=== PATIENT | female | born 1955 | race Caucasian/White ===

== ENCOUNTER 2018-09-23 09:33 | Outpatient (CLI) | payer BC ==
--- NOTE | 2018-09-23 10:36 | MRI ---
CERVICAL SPINE MRI WITHOUT CONTRAST: 09/23/2018 COMPARISON: None HISTORY: Cervical radiculopathy, neck pain with right upper extremity radiculopathy TECHNIQUE: Multiplanar multisequence MR imaging of cervical spine provided without contrast FINDINGS: The sagittal STIR imaging demonstrates a mild degree of right lateral degenerative edematous endplate change at C5-6. There is no significant anterolisthesis or retrolisthesis noted. There is moderate degenerative lowery e at the atlantoaxial interspace with posterior degenerative pannus formation. C2-3: Mild left-sided facet and uncovertebral osteophyte formation with no significant central canal or neural foraminal stenosis C3-4: There is a small left paracentral disc protrusion. There is facet and uncovertebral osteophyte formation on the left with mild left neural foraminal stenosis. No significant central canal or right neural foraminal stenosis. C4-5: There is disc space narrowing and disc desiccation with mild disc bulge partially effacing the ventral thecal sac and causing a mild degree of central canal stenosis, primarily right-sided. Bilate ral facet and uncovertebral osteophyte formation, right greater than left. Moderate right and mild le ft neural foraminal stenosis. C5-6: There is disc space narrowing and disc desiccation with anterior osteophyte formation and disc bulge. Superimposed central/right paracentral disc protrusion noted with effacement of the ventral th ecal sac and a moderate right lateral osteophyte formation. There is associated moderate right-sided neural foraminal stenosis on the basis of disc bulge as well as osteophyte encroachment. Mild left ne ural foraminal stenosis. C6-7: There is disc space narrowing and disc desiccation with disc bulge partially effacing the ventr al thecal sac and causing mild central canal stenosis. Moderate/severe right-sided neural foraminal s tenosis on the basis of facet and uncovertebral osteophyte formation. Mild left neural foraminal sten osis. C7-T1: Disc space narrowing and disc desiccation noted. There is a small central disc herniation with mild superior migration and mild central canal stenosis. There is bilateral facet and uncovertebral osteophyte formation, right greater than left. Moderate to severe right neural foraminal stenosis. Mi ld left neural foraminal stenosis. The cervical cord demonstrates normal signal intensity. IMPRESSION: Multilevel cervical spine degenerative change as detailed above. Transcribed Date/Time: 09/23/2018 10:43 AM
== END 2018-09-23 09:34 | disposition home or self-care (01) ==
LOC: BICMRI 09:33
PROVIDERS: ATTEND Family Medicine
DX: M47.22 Other spondylosis with radiculopathy, cervical region (principal)
CPT/HCPCS: 72141

== ENCOUNTER 2018-12-24 22:07 | Inpatient (IN) | payer BC ==
[~2018-12-24 22:07] MED LIST: ISOVUE-370 76%-LOCM 1 ML ONE
[2018-12-24 22:50] LABS: Bilirubin Negative (Negative); Blood, Urine Negative (Negative); Clarity Clear (Clear); Glucose, Urine (Dipstick) Normal (Negative); Leukocyte Negative Leu/uL (Negative); Nitrite Negative (Negative); Protein, Urine (Dipstick) 10 mg/dL (Neg-Trace); Urobilinogen Normal mg/dL (Less than 2)
[2018-12-24 22:59] LABS: #Eosinphils 0.1 thou/uL (0.0-0.7); #Lymphocytes 1.8 thou/uL (1.20-3.40); #Monocytes 0.7 thou/uL (0.11-0.59); #Neutrophils 4.3 thou/uL (1.40-6.50); %Basophils 0.6 % (0.0-1.0); %Eosinophils 1.3 % (0.0-10.0); %Lymphocytes 26.2 % (21.0-51.0); %Monocytes 10.5 % (0.0-10.0); %Neutrophils 61.4 % (42.0-75.0); Hemoglobin 13.7 g/dL (12.0-16.0); Mean Corpuscular Hemoglobin 31.3 pg (27.0-31.0); Mean Platelet Volume 9.6 fL (7.4-10.4); Platelet Count 213 thou/uL (130-400); RBC Distribution Width 11.8 % (11.5-14.5); Red Blood Cell (RBC) Count 4.39 mill/uL (4.20-5.40)
[2018-12-24 23:17] LABS: ALT (SGPT) 20 U/L (8-55); AST (SGOT) 23 U/L (5-34); Albumin 4.7 g/dL (3.4-4.8); Alkaline Phosphatase 61 U/L (40-150); Anion Gap 15 mmol/L (10-20); BUN (Urea Nitrogen) 20 mg/dL (9.8-20.1); Bilirubin, Total 0.5 mg/dL (0.2-1.2); Calc. Creatinine Clearance 0 mL/min (70-130); Calcium 9.8 mg/dL (7.8-10.44); Carbon Dioxide 23 mmol/L (23-31); Chloride 99 mmol/L (98-107); Estimated GFR-MDRD 79; Globulin 3.1 g/dL (2.4-3.5); Glucose 106 mg/dL (80-115); Lipase 24 U/L (8-78); Potassium 3.3 mmol/L (3.5-5.1); Protein, Total 7.8 g/dL (6.0-8.3); Sodium 134 mmol/L (136-145)
[2018-12-24] MEDS ORDERED: Dicyclomine 20 MG TAB ONE (23:55)
[2018-12-25] MEDS ORDERED: Morphine 4 MG/ML VIAL ONE (00:42)
[2018-12-25] MEDS ORDERED: Lidocaine Viscous Sol 2% 15 ml UD Cup ONE (00:52)
[2018-12-25] MEDS ORDERED: Benzocaine 20% Spray 60 ML CAN ONE (00:52)
[2018-12-25] MEDS ORDERED: Morphine 4 MG/ML VIAL SLOW IVP PRN ×2 (02:13→03:23)
[2018-12-25] MEDS ORDERED: Acetaminophen 325 MG TAB PO PRN (02:14)
[2018-12-25] MEDS ORDERED: Sodium Chloride 0.9% 1,000 ML IV SCH (02:14)
[2018-12-25 02:42] VITALS: BMI 25.5
[2018-12-25] MEDS: Potassium Chloride 30 MEQ in Sodium Chloride 0.9% 1,000 ML IV SCH ×2 (03:37→14:10)
--- NOTE | 2018-12-25 08:07 | CT ---
CT ABDOMEN AND PELVIS WITH CONTRAST: Date: 12/24/18 INDICATION: Abdominal pain and bloating. No prior comparison. FINDINGS: There is significant fecal impaction of the colon. In addition, there is a torsed appearance of the d istal colon at the level of the sigmoid with associated marked air-filled distention of the colon, wi th colonic luminal diameter nearing 10 cm. Associated fluid level within the colonic lumen is seen. No acute abnormality of the solid abdominal organs. There is dependent atelectasis in the lung base. No free air is seen. There is faint dependent fluid density seen within the posterior aspect of the p glen. Abdominal aorta is normal in appearance for patient's age. Osseous structures are nonacute. IMPRESSION: Findings consistent with a sigmoid volvulus with associated marked colonic distention. There is signi ficant fecal burden of the colon, as well. Recommend urgent surgical consultation. Telephone call to ER physician, Sandeep Simental, placed at 0022 hours on 12/25/18. CODE CR.
[2018-12-25] MEDS ORDERED: Ondansetron HCl/PF 4 MG/2 ML Vial IVP PRN (08:58)
[2018-12-25] MEDS ORDERED: Promethazine HCl 25 MG/ML VIAL IM PRN (08:58)
--- NOTE | 2018-12-25 10:28 | RAD ---
KUB: Date: 12/25/18 INDICATION: NG tube placement. IMPRESSION: NG tube tip projects in the region of the gastric body. There is excreted contrast within the renal c ollecting system. There are gas-filled loops of small and large bowel within the upper abdomen, which is nonspecific. POS: BH
--- NOTE | 2018-12-25 10:35 | CON ---
DATE OF CONSULTATION: 12/25/2018 REQUESTING PHYSICIAN: Dr. Llanes. REASON FOR CONSULTATION: Sigmoid volvulus. HISTORY OF PRESENT ILLNESS: Tamika Garcia is a 63-year-old woman with no significant past gastrointestinal history. She has never undergone colonoscopy. She has had a hysterectomy and several prior laparoscopies for endometriosis. She is otherwise fairly healthy. She says for the past 5 days or so, she has had increasing abdominal bloating, discomfort, and associated pain. The bowel habits have been alternating between periods of constipation and then watery diarrhea. There has been no fever. Some mild nausea, but no vomiting. The pain and bloating symptoms escalated last night, so she presented to the emergency department. A CT of the abdomen and pelvis demonstrated sigmoid volvulus with dilation of segments of the colon up to 10 cm and no evidence of ischemia. The patient received morphine and also nasogastric tube placement for decompression. With this, she is feeling quite a bit better this morning. She has not been passing gas overnight. General Surgery was already consulted and advised GI consultation for consideration of flexible sigmoidoscopy for detorsion and decompression. The patient has remained hemodynamically stable and afebrile. She has no other complaints. REVIEW OF SYSTEMS: Full review of systems including constitutional, head, eyes, ears, nose, throat, GI, , cardiovascular, respiratory, musculoskeletal, neurologic systems are negative except as noted in the HPI. PAST MEDICAL HISTORY: Hypertension, hyperlipidemia, endometriosis, and hysterectomy. ALLERGIES: NO KNOWN DRUG ALLERGIES. OUTPATIENT MEDICATIONS: 1. Metoprolol. 2. Hydrochlorothiazide. 3. Atorvastatin. 4. . SOCIAL HISTORY: No smoking or drug use. No alcohol abuse. FAMILY HISTORY: Noncontributory. PHYSICAL EXAMINATION: VITAL SIGNS: Temperature 97.9, pulse 69, blood pressure 150/65, and 98% oxygen saturation on room air. GENERAL: A 63-year-old woman, lying in bed comfortably, in no distress. SKIN: No jaundice. No rashes were palpable. HEENT: Eyes, no scleral icterus. Extraocular movements intact. ENT, mucous membranes moist. No oral lesions. She has a nasogastric tube to the right naris, which is clamped at this time. LYMPH: No submandibular or supraclavicular lymphadenopathy. THYROID: Nontender to palpation. HEART: Regular rate and rhythm. LUNGS: Clear to auscultation bilaterally. ABDOMEN: Mild distention. Tympanitic to percussion. Bowel sounds are hypoactive. Some mild tenderness to palpation in the lower abdomen, but no guarding or rebound tenderness. EXTREMITIES: No peripheral edema. VESSELS: Radial pulses 2+ bilaterally. NEUROLOGIC: Cranial nerves 2 through 12 intact bilaterally. No focal deficits. LABORATORY STUDIES: WBC 7.0, hemoglobin 13.7, platelets 213. Sodium 134, potassium 3.3, BUN 20, creatinine 0.75. Lactic acid 0.6, total bilirubin 0.5, alkaline phosphatase 61, AST 23, ALT 20, and albumin 4.7. Urinalysis negative. IMAGING STUDIES: CT of the abdomen and pelvis demonstrates sigmoid volvulus with dilation of segments of the colon measuring up to 10 cm in diameter. There is no evidence of ischemic changes. ASSESSMENT AND PLAN: Sigmoid volvulus. I discussed with the patient the necessity to proceed with unprepped flexible sigmoidoscopy this morning for endoscopic decompression and detorsion. The patient is agreeable, so we will proceed within the next few hours. I understand general surgery has also been consulted. Sigmoidectomy should be considered at some point. Notably, the patient is clinically stable and has no clinical evidence that would raise suspicion for bowel ischemia. Job ID: [id number]
--- NOTE | 2018-12-25 10:37 | OP ---
DATE OF PROCEDURE: 12/25/2018 ASSISTANCE SURGEON: None. PROCEDURE PERFORMED: Flexible sigmoidoscopy, unprepped. INDICATION: Sigmoid volvulus. MEDICATIONS: See Anesthesia record. FINDINGS: After discussion of the risks, benefits, and alternatives of the procedure, informed consent was obtained and witnessed. Pre-endoscopic cardiopulmonary examination was satisfactory. Time-out was performed before sedation was achieved. Sedation was achieved with Anesthesia assistance in the endoscopy unit. The patient was placed in the left lateral decubitus position. Digital rectal exam was performed, which was unremarkable. The Pentax adult colonoscope was inserted into the anus and passed forward in the usual fashion. There was no stool evident within the rectum and rectosigmoid area. At 25 cm, which is in the sigmoid colon, there is characteristic swirling of the mucosa consistent with sigmoid volvulus. The endoscope was gently advanced to the apex of the swirling and easily passed beyond this area. The proximal sigmoid colon was distended, though less markedly so than expected. There was liquid stool proximal to this area. Care was taken to keep insufflation to a minimum and in fact, suck air out of the colonic lumen as much as possible. The endoscope was further advanced to a distance of about 80 cm. The mucosa was progressively more obscured with liquid and then solid stool. The mucosa was visualized, appeared unremarkable throughout. Certainly, no evidence of ischemia or gangrene. No erythema. The endoscope was withdrawn, slowly and gradually suctioning out all excess air possible. Retroflexion in the rectum was unremarkable. The colonoscope was completely withdrawn and the patient allowed to recover. The patient tolerated the procedure well. There were no immediate postprocedure complications. IMPRESSION: 1. Sigmoid volvulus with characteristic mucosal swirling at 25 cm, now with successful endoscopic decompression and hopefully successful detorsion. 2. Mild colonic dilation with solid and liquid stool proximal to 25 cm, now decompressed. 3. Normal mucosa was visualized, examined to 80 cm. RECOMMENDATIONS: Proceed with surgical evaluation for consideration of sigmoidectomy. Please call back anytime with questions or concerns. Job ID: [id number]
[2018-12-25] MEDS ORDERED: PROPOFOL 200 MG/20 ML VIAL ONE (15:00)
--- NOTE | 2018-12-25 16:25 | HP ---
HISTORY OF PRESENT ILLNESS: This is a 63-year-old white female, relatively healthy with a history of hypertension who presents with abdominal pain. The patient is very active. She walks 2-3 miles daily. She was doing well until earlier this week, Thursday, Thursday, began developing some abdominal discomfort. She had minimal nausea. She was relatively stable until Thursday evening. She had a larger than normal meal with some friends. Her abdomen became more acutely swollen with pain. She presented to the emergency room, where CAT scan revealed a sigmoid volvulus. Dr. Chapa and Dr. Pozo were consulted. This morning, actually she went to the OR and underwent a flexible sigmoidoscopy with reduction of the volvulus. Dr. Pozo was consulted. This morning, patient is also feeling significantly better with no abdominal pain. NG tube is in place. PAST MEDICAL HISTORY: Includes hypertension. PAST SURGERIES: Hysterectomy. MEDICATIONS: 1. Multivitamin daily. 2. Aspirin 81 daily. 3. Calcium 500 b.i.d. 4. Estradiol patch weekly transdermal 0.025. 5. HCTZ 25 daily. 6. Phentermine daily. 7. Metoprolol 50 b.i.d. FAMILY HISTORY: Father with heart disease. Mother with heart disease. Brother with hypertension. ALLERGIES: NONE. SOCIAL HISTORY: She is a nonsmoker. No alcohol. and retired. They have one child. REVIEW OF SYSTEMS: As above. PHYSICAL EXAMINATION: VITAL SIGNS: Temperature 97.6, pulse 61, respiration 14, blood pressure 134/84. GENERAL: No acute distress at this time with NG tube in place. HEENT: Clear. HEART: Regular rate and rhythm. LUNGS: Clear. ABDOMEN: Soft, nontender. No bloating. EXTREMITIES: No edema. LABORATORY DATA: White count 10.0, H and H 13 and 41 on admission. Sodium 134, potassium 3.3. Lipase 24. UA negative. Specific gravity 1.031. ASSESSMENT: 1. Sigmoid volvulus. 2. Hypertension. 3. Postop day #0 status post flex sig with sigmoid volvulus reduction. PLAN: 1. Consult Dr. Pozo for discussion on sigmoidectomy. The patient is at risk for recurrence and intestinal ischemia. The patient and her are aware of this. 2. To have a discussion with Dr. Pozo as to the next step. 3. Hydration. 4. Potassium replenishment. 5. We will continue to follow. We will restart antihypertensive when necessary. Job ID: [id number]
[2018-12-25] MEDS ORDERED: GoLYTELY 4,000 ml Bottle PO SCH (17:00)
[2018-12-25] MEDS: Sodium Chloride 0.9% 1,000 ML IV SCH (21:18)
[2018-12-26] MEDS: Sodium Chloride 0.9% 1,000 ML IV SCH ×2 (07:44→13:43)
[2018-12-26 08:03] LABS: #Eosinphils 0.1 thou/uL (0.0-0.7); #Lymphocytes 1.3 thou/uL (1.20-3.40); #Monocytes 0.7 thou/uL (0.11-0.59); #Neutrophils 3.4 thou/uL (1.40-6.50); %Basophils 0.6 % (0.0-1.0); %Lymphocytes 23.6 % (21.0-51.0); %Monocytes 12.7 % (0.0-10.0); %Neutrophils 62.2 % (42.0-75.0); Hemoglobin 12.6 g/dL (12.0-16.0); Mean Corpuscular HGB CONC 35.3 g/dL (32.0-36.0); Mean Corpuscular Hemoglobin 33.5 pg (27.0-31.0); Mean Corpuscular Volume 94.9 fL (78.0-98.0); Mean Platelet Volume 9.2 fL (7.4-10.4); Platelet Count 219 thou/uL (130-400); RBC Distribution Width 12.2 % (11.5-14.5); Red Blood Cell (RBC) Count 3.74 mill/uL (4.20-5.40); White Blood Cell (WBC) Count 5.5 thou/uL (4.8-10.8)
--- NOTE | 2018-12-26 08:14 | PRG ---
DATE OF SERVICE: 12/26/2018 SUBJECTIVE: The patient is doing well this morning. No complaints of any abdominal pain. Drank the bowel prep for colonoscopy this morning, however, she is not entirely cleared yet. Status post 1 day of sigmoid decompression via flexible sigmoidoscopy. OBJECTIVE: VITAL SIGNS: Temperature 98.3, pulse 94, respirations 18, pulse ox 91%, and blood pressure 129/80. HEART: Regular rate and rhythm. LUNGS: Clear. ABDOMEN: Soft and nontender. ASSESSMENT: 1. Postop day 1, status post sigmoid decompression of a volvulus. 2. Hypertension. PLAN: 1. Colonoscopy this a.m. May require additional bowel prep. 2. Plan for sigmoidectomy in the a.m. by Dr. Pozo. 3. We will recheck electrolytes this morning. Job ID: [id number]
[2018-12-26 08:25] LABS: Anion Gap 14 mmol/L (10-20); BUN (Urea Nitrogen) 5 mg/dL (9.8-20.1); Calc. Creatinine Clearance 101 mL/min (70-130); Calcium 8.2 mg/dL (7.8-10.44); Carbon Dioxide 26 mmol/L (23-31); Chloride 102 mmol/L (98-107); Estimated GFR-MDRD Greater than 90; Glucose 81 mg/dL (80-115); Potassium 3.1 mmol/L (3.5-5.1); Sodium 139 mmol/L (136-145)
--- NOTE | 2018-12-26 08:39 | CON ---
DATE OF CONSULTATION: 12/25/2018 REASON FOR CONSULT: Sigmoid volvulus. HISTORY OF PRESENT ILLNESS: Ms. Garcia is a 63-year-old woman, who came to the hospital with a 4-day history of abdominal discomfort, which became severe on the day of admission and she was not having any nausea or vomiting, but did have diffuse abdominal discomfort and distention. Evaluation in the ER revealed sigmoid volvulus, and she was taken to the endoscopy suite on 12/25/2018 and underwent flexible sigmoidoscopy by Dr. Chapa with reduction of the volvulus. She is feeling much better since her decompression and is passing gas. PAST MEDICAL HISTORY: Hypertension. PAST SURGICAL HISTORY: Total hysterectomy. MEDICATIONS: Include, 1. Hydrochlorothiazide. 2. Metoprolol. 3. She also has an Estradiol patch in place, and takes phentermine and also vitamin, aspirin, and calcium. FAMILY HISTORY: Heart disease and hypertension. ALLERGIES: NO KNOWN DRUG ALLERGIES. SOCIAL HISTORY: She does not smoke, drink, or use illicit drugs. REVIEW OF SYSTEMS: Ten-system review of systems is negative, except per HPI. Currently, she is completely asymptomatic. PHYSICAL EXAMINATION: GENERAL: Reveals a healthy-appearing woman, in no acute distress. HEENT: Unremarkable. NECK: Supple without lymphadenopathy or thyroid nodules. HEENT: She is not flushed or toxic. She is not jaundiced or icteric. HEART: Regular in its rate and rhythm without murmurs, rubs, or gallops. LUNGS: Clear to auscultation bilaterally. ABDOMEN: Soft, nontender, and nondistended without palpable scars or masses. EXTREMITIES: Warm and well perfused without edema. NEURO: No focal deficit. PSYCHIATRIC: Alert, oriented, and appropriate. LABORATORY DATA: White count is normal, hematocrit is 41. Electrolytes are unremarkable. Potassium is slightly low at 3.3. IMAGING STUDIES: CT images are reviewed and I agree with written report. She has an extremely redundant sigmoid colon. ASSESSMENT: Sigmoid volvulus with very redundant sigmoid colon. The patient is at high risk for recurrent volvulus, and I have recommended sigmoid colectomy. This should be able to be done in a laparoscopic hand-assisted manner. She has never had a screening colonoscopy, and I have recommended that she undergo this prior to sigmoid colectomy. Dr. Chapa was able to evaluate most of the sigmoid colon and no mucosal abnormalities were noted, but the proximal colon was unprepped. Bowel preparation and colonoscopy by Dr. Chapa are scheduled for Thursday and I would echo on the OR schedule for a laparoscopic hand-assisted sigmoid colectomy on Thursday. Inherent risks of sigmoid colectomy were discussed with the patient and her . These includes, but are not limited to, bleeding, infection, risks of anesthesia, damage to nearby structures including bowel, blood vessels, and ureter; need for other procedures, and anastomotic leak requiring diversion with an ostomy. They understands and accepts these risks and wished to proceed. She has an NG tube in place and this will be used for the bowel prep after which it can be removed. Job ID: [id number]
[2018-12-26] MEDS ORDERED: GoLYTELY 4,000 ml Bottle PO SCH (12:15)
[2018-12-26] MEDS ORDERED: Lidocaine 1% PF 5 ML VIAL ONE (15:06)
[2018-12-26] MEDS ORDERED: PROPOFOL 200 MG/20 ML VIAL ONE (15:06)
[2018-12-26] MEDS ORDERED: Midazolam HCl 2 mg/2 ml Vial ONE (15:34)
[2018-12-26] MEDS ORDERED: Promethazine HCl 25 MG/ML VIAL IM PRN (16:25)
[2018-12-26] MEDS ORDERED: Ondansetron HCl/PF 4 MG/2 ML Vial IVP PRN (16:25)
[2018-12-26] MEDS ORDERED: Promethazine HCl 25 MG/ML VIAL SLOW IVP PRN (16:25)
[2018-12-26] MEDS ORDERED: Metoprolol Tartrate 50 MG TAB PO SCH (18:45)
--- NOTE | 2018-12-26 23:09 | OP ---
DATE OF PROCEDURE: 12/26/2018 KAIAWHINA KURA KAUPAPA MAORI SURGEON: None. PROCEDURE PERFORMED: Colonoscopy, diagnostic indication, recent sigmoid volvulus, status post emergent flexible sigmoidoscopy with decompression. This is a preoperative examination prior to planned sigmoid resection. MEDICATIONS: See Anesthesia record. FINDINGS: After discussion of the risks, benefits, and alternatives of the procedure, informed consent was obtained and witnessed. Pre-endoscopic cardiopulmonary examination was satisfactory. Time-out was performed before sedation was achieved. Sedation was achieved with Anesthesia assistance in the endoscopy unit. A Pentax adult upper endoscope was prepared. Digital rectal exam was performed, which was unremarkable. The colonoscope was inserted into the anus and passed forward to the cecum in the usual fashion. The cecal base was identified by the appendiceal orifice as well as the ileocecal valve. The terminal ileum was intubated and the ileal mucosa appeared normal. The colonoscope was slowly withdrawn in a gradual and circumferential manner with careful examination of the entire colonic mucosa. The quality of the prep was good. The colon is quite redundant, which required manual pressure in order to advance the scope all the way to the cecum. The colonic mucosa appeared normal throughout. There was no evidence of any polyps or mass lesions or any other mucosal abnormalities. Retroflexion in the rectum was unremarkable. The colonoscope was completely withdrawn and the patient allowed to recover. The patient tolerated the procedure well. There were no immediate postprocedure complications. IMPRESSION: 1. Redundant colon. 2. Otherwise normal colonoscopy to the terminal ileum. RECOMMENDATION: 1. Proceed with plan for sigmoidectomy. 2. Repeat colonoscopy for screening in 10 years. 3. Please call back anytime, if GI can be of any further assistance. Job ID: [id number]
[2018-12-27] MEDS ORDERED: cefOXitin Sodium/Dextrose,Iso 2 GM in Premix Bag 1 BAG IVPB SCH (00:45)
[2018-12-27] MEDS: Neomycin 500 mg Tablet PO SCH ×3 (01:01→17:10)
[2018-12-27] MEDS: Erythromycin Base 250 MG TAB PO SCH ×4 (01:02→21:09)
[2018-12-27] MEDS: Sodium Chloride 0.9% 1,000 ML IV SCH ×2 (01:07→21:50)
[2018-12-27] MEDS ORDERED: Midazolam HCl 2 mg/2 ml Vial ONE ×3 (08:40→15:32)
[2018-12-27] MEDS ORDERED: Fentanyl 100 MCG/2 ML VIAL ONE ×4 (08:40→19:39)
[2018-12-27] MEDS ORDERED: Dexamethasone 4 mg/ml Vial ONE (08:40)
[2018-12-27] MEDS ORDERED: Fentanyl 250 MCG/5 ML VIAL ONE (10:15)
[2018-12-27] MEDS ORDERED: Bupivacaine/Epinephrine 0.25% 30 ML VIAL ONE (15:22)
[2018-12-27] MEDS ORDERED: Bupivacaine HCl 0.5%/Epinephrine 1:200,000/PF 30 ml Vial ONE (15:22)
[2018-12-27] MEDS ORDERED: Dexamethasone 20 MG/5 ML VIAL ONE (15:51)
[2018-12-27] MEDS ORDERED: Lidocaine 1% PF 5 ML VIAL ONE (15:51)
[2018-12-27] MEDS ORDERED: PROPOFOL 200 MG/20 ML VIAL ONE (15:51)
[2018-12-27] MEDS ORDERED: Ketorolac Tromethamine 30 MG/ML VIAL ONE (15:51)
[2018-12-27] MEDS ORDERED: Glycopyrrolate 0.2 MG/ML 5 ML SYRINGE ONE (15:51)
[2018-12-27] MEDS ORDERED: PHENYLEPHRINE-NS 100 MCG/ML 10 ML SYRINGE ONE (15:51)
[2018-12-27] MEDS ORDERED: Ondansetron PF 4 MG/2 ML Vial ONE (15:51)
[2018-12-27] MEDS ORDERED: Metoclopramide HCl 10 MG/2 ML VIAL ONE (15:51)
[2018-12-27] MEDS ORDERED: Rocuronium Bromide 10 MG/ML (10ML VIAL) ONE (15:51)
[2018-12-27] MEDS ORDERED: cefOXitin 2 GM VIAL ONE (18:07)
[2018-12-27] MEDS ORDERED: Ondansetron HCl/PF 4 MG/2 ML Vial IVP PRN (18:55)
[2018-12-27] MEDS ORDERED: Meperidine HCl/PF 25 MG/ML VIAL SLOW IVP PRN (18:55)
[2018-12-27] MEDS ORDERED: Promethazine HCl 25 MG/ML VIAL IM PRN ×2 (18:55→19:58)
[2018-12-27] MEDS ORDERED: Promethazine HCl 25 MG/ML VIAL SLOW IVP PRN (18:55)
[2018-12-27] MEDS ORDERED: Acetaminophen 650 MG Suppository PR PRN (19:09)
--- NOTE | 2018-12-27 19:17 | PDOC.OP ---
Operative Note - Operative Note Operative Note: PROCEDURE: Laparoscopic hand-assisted sigmoid colectomy with splenic flexure mobilization SURGEON: Fredo Pozo M.D. DATE: 12/27/2018 PREOPERATIVE DIAGNOSIS: Sigmoid volvulus POSTOPERATIVE DIAGNOSIS: Sigmoid volvulus HISTORY: Patient who presented with abdominal pain and was found to have a sigmoid volvulus. She underwent colonoscopic detorsion with relief of her symptoms. Bowel prep was carried out and completion colonoscopy did not show any other abnormalities besides a very redundant colon. Recommendation was made proceed with laparoscopic hand-assisted sigmoid colectomy to prevent future episodes of volvulus. FINDINGS: Extremely redundant sigmoid colon with stigmata of recent volvulus. PROCEDURE IN DETAIL: After informed consent was obtained and appropriate bowel preparation and oral and IV antibiotics were administered the patient was taken to the operating room she was placed in supine position and general endotracheal anesthesia was administered. She was placed in lithotomy position and prepped and draped in standard sterile fashion. Local anesthesia was infused the skin and subcutaneous tissues at the periumbilical area and a 6 cm incision made. Dissection was carried down to the fascia which was incised under direct vision. The peritoneal cavity was entered and no adhesions noted. A wound protector and GelPort were placed and carbon dioxide gas insufflated to an intra-abdominal pressure 15 which the patient tolerated well. The patient was noted to have an extremely redundant sigmoid colon reaching up to the right upper quadrant. There was scarring of the mesentery consistent with recent volvulus of the bowel which appeared entirely viable and otherwise healthy. The entire colon was rather dilated with gas but otherwise healthy and normal in appearance. A 5 mm epigastric and 12 mm right lower quadrant port were placed under direct laparoscopic vision. The ureter and gonadal vessels were easily palpable well lateral to the redundant mesentery of the sigmoid colon. The retroperitoneum was incised and the ureter carefully examined. This was confirmed to peristalse and the course was noted to be well away from the area of dissection. The mesorectum at the upper rectum was divided using LigaSure and a laparoscopic stapler placed across the upper rectum. This was closed and fired dividing the upper rectum. The mesorectum and mesentery of the sigmoid colon were then divided using LigaSure until the descending colon was encountered. This reached down to the top of the pelvis but was under some tension when approximated to the rectal stump so the descending colon and distal transverse colon were entirely mobilized by incising the white line of Toldt and dividing the connections at the splenic flexure. Following this the descending colon reached down easily to the rectal stump without tension. The operative site was examined and hemostasis was verified. The sigmoid colon was then externalized through the wound protector and towels were placed around it. An incision was made in the upper sigmoid colon and a 31 mm sizer easily placed into the descending colon. A 31 EEA stapler was obtained and the spike of the anvil advanced through the antimesenteric edge of the distal descending colon. The stapler was placed transversely across the distal descending colon excluding the enterotomy. The stapler was fired and the sigmoid colon passed from the field. The ends of the transverse staple line were imbricated with Lembert sutures. The spike was removed from the anvil and the colon was dropped back into the abdominal cavity. Sizers were easily passed to the end of the rectal stump under direct laparoscopic vision. A 31 mm EEA stapler was then passed to the end of the rectal stump and the spike advanced through the end of the rectum just above the staple line. This was mated to the anvil and the stapler was closed and fired. The EEA stapler was then removed and 2 full- thickness donuts were confirmed on the back table. Saline was instilled into the pelvis and a proctoscope placed into the distal rectum and air insufflated into the rectum with the descending colon digitally clamped, distending the staple line with gas. No bubbling was seen from the staple line which appeared entirely healthy. The saline was then suctioned out of the pelvis and the small intestine returned to its normal anatomic position. The omentum was drawn down over the small bowel. The 12 mm trocar in the right lower quadrant was removed and the fascial defect closed with a 0 Vicryl suture on a GraNee needle under direct laparoscopic vision. The 5 mm epigastric trocar was removed and hemostasis verified. The GelPort and wound protector were removed and Seprafilm placed anterior to the omentum. The fascia was closed with a running PDS suture. The wound was copiously irrigated and the skin was closed with running subcuticular Monocryl sutures. Dermabond dressings were placed and the patient was extubated and taken to recovery in good condition. Estimated blood loss was minimal. There were no complications. Specimen is sigmoid colon, with enterotomy proximal.
[2018-12-27] MEDS ORDERED: hydrALAZINE 20 MG/ML VIAL SLOW IVP PRN (19:58)
[2018-12-27] MEDS ORDERED: Morphine 2 MG/ML SYRINGE SLOW IVP PRN (19:58)
[2018-12-27] MEDS ORDERED: Morphine 4 MG/ML VIAL SLOW IVP PRN ×2 (19:58)
[2018-12-27] MEDS ORDERED: Ondansetron PF 4 MG/2 ML Vial IVP PRN (19:58)
[2018-12-27] MEDS: Famotidine/PF 20 mg/2ml Vial SLOW IVP SCH (21:08)
[2018-12-27] MEDS: cefOXitin Sodium/Dextrose,Iso 1 GM in Premix Bag 1 BAG IVPB SCH (21:08)
[2018-12-27] MEDS: Famotidine 20 MG TAB PO SCH (21:50)
[2018-12-27] MEDS: Ketorolac Tromethamine 30 MG/ML VIAL IVP SCH (23:59)
[2018-12-28] MEDS ORDERED: Erythromycin Base 250 MG TAB PO SCH (03:00)
[2018-12-28] MEDS: Acetaminophen 1,000 MG in Premix Bag 1 BAG IVPB SCH ×4 (05:19→17:17)
[2018-12-28] MEDS: cefOXitin Sodium/Dextrose,Iso 1 GM in Premix Bag 1 BAG IVPB SCH (05:19)
[2018-12-28] MEDS: Ketorolac Tromethamine 30 MG/ML VIAL IVP SCH ×4 (05:20→23:01)
[2018-12-28] MEDS: Sodium Chloride 0.9% 1,000 ML IV SCH ×2 (05:25→20:12)
[2018-12-28 06:01] LABS: #Lymphocytes 0.5 thou/uL (1.20-3.40); #Monocytes 0.6 thou/uL (0.11-0.59); #Neutrophils 8.7 thou/uL (1.40-6.50); %Eosinophils 0.1 % (0.0-10.0); %Lymphocytes 5.1 % (21.0-51.0); %Monocytes 6.4 % (0.0-10.0); %Neutrophils 88.4 % (42.0-75.0); Hemoglobin 12.7 g/dL (12.0-16.0); Mean Corpuscular HGB CONC 33.5 g/dL (32.0-36.0); Mean Corpuscular Hemoglobin 31.5 pg (27.0-31.0); Mean Platelet Volume 9.5 fL (7.4-10.4); Platelet Count 172 thou/uL (130-400); RBC Distribution Width 11.6 % (11.5-14.5); Red Blood Cell (RBC) Count 4.04 mill/uL (4.20-5.40); White Blood Cell (WBC) Count 9.9 thou/uL (4.8-10.8)
[2018-12-28 06:23] LABS: Anion Gap 12 mmol/L (10-20); BUN (Urea Nitrogen) 8 mg/dL (9.8-20.1); Calc. Creatinine Clearance 96 mL/min (70-130); Calcium 8.5 mg/dL (7.8-10.44); Carbon Dioxide 24 mmol/L (23-31); Chloride 104 mmol/L (98-107); Estimated GFR-MDRD 85; Glucose 138 mg/dL (80-115); Potassium 3.5 mmol/L (3.5-5.1); Sodium 136 mmol/L (136-145)
[2018-12-28] MEDS: Enoxaparin Sodium 40 MG/0.4 ML SYRINGE SC SCH (08:38)
[2018-12-28] MEDS: Famotidine/PF 20 mg/2ml Vial SLOW IVP SCH ×2 (08:39→20:12)
[2018-12-28] MEDS: Famotidine 20 MG TAB PO SCH ×2 (08:42→20:10)
--- NOTE | 2018-12-28 18:17 | PRG ---
DATE OF SERVICE: 12/28/2018 Postoperative day #2 from colonoscopy, #1 from laparoscopic sigmoid colectomy. SUBJECTIVE: The patient is doing well. She states the pain is improved. She still has some soreness over her abdomen. She is not passing gas. Denies fevers or chills. No cough or shortness of breath. She has not been out of bed this morning. OBJECTIVE: VITAL SIGNS: This morning, temperature 97.8, pulse is 77, respirations 14, blood pressure 110/70, pulse ox is 97% on room air. GENERAL: She is awake and alert. No acute distress. Speech is clear. NECK: Supple. HEART: Regular rate and rhythm. LUNGS: Clear. ABDOMEN: Diffusely soft. Mild tenderness. No bowel sounds. EXTREMITIES: With no edema. LABORATORY DATA: White blood cell count 9900, hemoglobin and hematocrit 12.7 and 38.0, and platelets of 172. Sodium 136, potassium 3.5, chloride 104, CO2 of 24, BUN and creatinine 8 and 0.7. Serum glucose of 138. ASSESSMENT/PLAN: 1. This is a 63-year-old female patient, admitted with acute abdominal pain, found to have a sigmoid volvulus. She is now status post sigmoid colectomy by Dr. Pozo, doing well. Postoperative plan as per Surgery. 2. Hypertension, remained stable. We will continue her medications. DISPOSITION: Home when okay with surgery. Job ID: [id number]
--- NOTE | 2018-12-28 20:35 | PRG ---
DATE OF SERVICE: 12/28/2018 SUBJECTIVE: Ms. Garcia is feeling well today. She denies any nausea or vomiting. Her pain is controlled and she has required minimal pain medication. Vital signs are good and labs look good. She has not passed any flatus, ever had any bowel movements. She is tolerating ice chips. Abdominal exam is benign. She is ambulating independently. Incisions are clean, dry, and intact. Abdomen is nondistended. ASSESSMENT: Status post sigmoid colectomy, doing well on postoperative day 1, still awaiting return of normal bowel function, but tolerating ice chips. I will advance her diet to clear liquids. Once she is passing flatus, I will advance her to full. Job ID: [id number]
[2018-12-29] MEDS ORDERED: Acetaminophen 650 MG Suppository PR PRN (00:15)
[2018-12-29] MEDS: Ketorolac Tromethamine 30 MG/ML VIAL IVP SCH ×2 (05:13→11:34)
[2018-12-29] MEDS: Famotidine/PF 20 mg/2ml Vial SLOW IVP SCH (08:56)
[2018-12-29] MEDS: Famotidine 20 MG TAB PO SCH (08:56)
[2018-12-29] MEDS: Enoxaparin Sodium 40 MG/0.4 ML SYRINGE SC SCH (09:23)
[2018-12-29] MEDS: Sodium Chloride 0.9% 1,000 ML IV SCH (09:24)
--- NOTE | 2018-12-29 10:58 | PRG ---
DATE OF SERVICE: 12/29/2018 SUBJECTIVE: The patient is doing very well this morning. She is hungry. She is having bowel movements and passing gas. She is postop day #2 status post sigmoid colectomy by Dr. Pozo. OBJECTIVE: VITAL SIGNS: Temperature 98.0, pulse 61, respirations 14, pulse ox 98%, and blood pressure 141/82. HEART: Regular rate and rhythm. LUNGS: Clear. ABDOMEN: Soft. Normal bowel sounds. EXTREMITIES: No edema. LABORATORY DATA: None. ASSESSMENT: 1. Postop day #2, status post sigmoid colectomy. 2. Status post sigmoid volvulus decompression via flexible sigmoidoscopy by Dr. Chapa. 3. Postop colonoscopy, unremarkable. 4. Hypertension, stable. PLAN: 1. Continue to advance diet. 2. Hopefully, can discharge home soon. Job ID: [id number]
[2018-12-29] MEDS ORDERED: Acetaminophen 325 MG TAB PO PRN ×2 (12:20)
[2018-12-29] MEDS ORDERED: HYDROcodone/Acetaminophen 5/325 mg Tablet PO PRN ×2 (12:20)
[2018-12-29] MEDS ORDERED: Ibuprofen 800 MG TAB PO PRN (12:21)
[2018-12-29] MEDS ORDERED: Ibuprofen 600 MG TAB PO PRN (12:21)
[2018-12-29] MEDS ORDERED: Ibuprofen 200 MG TAB PO PRN ×2 (12:21→12:37)
[2018-12-29 16:34] VITALS: BP 153/71; TEMP 97.4
[2018-12-29] MEDS ORDERED: Atorvastatin Calcium 10 MG TAB PO SCH (21:00)
[2018-12-30] MEDS ORDERED: PHENTERMINE 30 MG PO SCH (09:00)
[2018-12-30] MEDS ORDERED: Hydrochlorothiazide 25 MG TAB PO SCH (09:00)
== END 2018-12-29 18:45 | disposition home or self-care (01) | DRG 330 ==
LOC: ERS 22:07 → SURG B 12-25 01:14
PROVIDERS: ADMIT Family Medicine; ATTEND Family Medicine
PROC: 0D7N8ZZ Dilation of Sigmoid Colon, Via Natural or Artificial Opening Endoscopic (ICD-10-PCS; 2018-12-25)
PROC: 0DNN8ZZ Release Sigmoid Colon, Via Natural or Artificial Opening Endoscopic (ICD-10-PCS; 2018-12-25)
PROC: 0DJD8ZZ Inspection of Lower Intestinal Tract, Via Natural or Artificial Opening Endoscopic (ICD-10-PCS; 2018-12-26)
PROC: 0DTN4ZZ Resection of Sigmoid Colon, Percutaneous Endoscopic Approach (ICD-10-PCS; principal; 2018-12-27)
DX: K56.2 Volvulus (principal); Q43.8 Other specified congenital malformations of intestine; I10 Essential (primary) hypertension; E78.5 Hyperlipidemia, unspecified; Z90.710 Acquired absence of both cervix and uterus
CPT/HCPCS: 36415; 36416; 74018; 74177; 80048; 80053; 81003; 83605; 83690; 85025; 88307; 96361; 96374; J0131; J0670; J0694; J1100; J1885; J2001; J2250; J2270; J2405; J2704; J2765; J3010; J3480; J7050; Q9966; S0028

== ENCOUNTER 2020-09-28 14:36 | Inpatient (IN) | payer BC ==
[2020-09-28 15:06] LABS: Mean Corpuscular HGB CONC 32.8 g/dL (32.0-36.0); Mean Corpuscular Hemoglobin 29.7 pg (27.0-31.0); Mean Corpuscular Volume 90.7 fL (78.0-98.0); Mean Platelet Volume 16.2 fL (7.4-10.4); Platelet Count 4 thou/uL (130-400); RBC Distribution Width 12.1 % (11.5-14.5); Red Blood Cell (RBC) Count 4.73 mill/uL (4.20-5.40); White Blood Cell (WBC) Count 3.8 thou/uL (4.8-10.8)
[2020-09-28 15:22] LABS: Differential Comment Blast-Like Cell(s); Eosinophils 3 % (0-10); Lymphocytes 45 % (21-51); MDiff Complete? YES; Monocytes 6 % (0-10); Myelocyte 1 % (0-0); Neutrophil 36 % (42-75); Nucleated RBC 2 % (0); Platelet Morphology Comment Appears Decreased; RBC Morphology Normal; Reactive Lymphocytes 7 % (0-10); Reflex for Review?? YES
[2020-09-28 15:27] LABS: ALT (SGPT) 15 U/L (8-55); AST (SGOT) 20 U/L (5-34); Albumin 4.7 g/dL (3.4-4.8); Alkaline Phosphatase 63 U/L (40-110); Anion Gap 16 mmol/L (10-20); BUN (Urea Nitrogen) 14 mg/dL (9.8-20.1); Bilirubin, Total 0.7 mg/dL (0.2-1.2); Calc. Creatinine Clearance 0 mL/min (70-130); Calcium 9.4 mg/dL (7.8-10.44); Carbon Dioxide 26 mmol/L (23-31); Chloride 95 mmol/L (98-107); Glucose 121 mg/dL (80-115); INR-International Normal Ratio 1.1; PTT 29.8 sec (22.9-36.1); Potassium 3.5 mmol/L (3.5-5.1); Protein, Total 7.7 g/dL (5.8-8.1); Sodium 133 mmol/L (136-145)
[2020-09-28] MEDS ORDERED: ADMIXTURE FEE IVPB SCH (17:00)
[2020-09-28] MEDS ORDERED: OCTAGAM IVPB SCH (17:00)
[2020-09-28] MEDS ORDERED: Dexamethasone 10 MG/ML VIAL ONE (17:15)
[2020-09-28 17:27] LABS: Bilirubin Negative (Negative); Blood, Urine Negative (Negative); Clarity Clear (Clear); Glucose, Urine (Dipstick) Normal (Negative); Ketone, Urine Negative (Negative); Leukocyte Negative Leu/uL (Negative); Nitrite Negative (Negative); Protein, Urine (Dipstick) Negative (Neg-Trace); Specific Gravity, Urine 1.012 (1.002-1.036); Urobilinogen Normal mg/dL (Less than 2); pH, Urine 6.5 (5.0-9.0)
[2020-09-28] MEDS ORDERED: Ondansetron PF 4 MG/2 ML Vial IVP PRN (18:11)
[2020-09-28] MEDS ORDERED: Senokot S 8.6-50 MG TAB PO PRN (18:11)
[2020-09-28] MEDS ORDERED: Acetaminophen 325 MG TAB PO PRN (18:11)
[2020-09-28] MEDS ORDERED: HYDROcodone/Acetaminophen 5/325 mg Tablet PO PRN (18:12)
[2020-09-28] MEDS: Atorvastatin Calcium 10 MG TAB PO SCH (23:07)
[2020-09-29] VITALS: BMI 26.4
[2020-09-29 01:28] LABS: SARS-CoV-2 PCR by NAA Not Detected (NotDetected)
[2020-09-29 04:37] LABS: Hemoglobin 13.3 g/dL (12.0-16.0); Mean Corpuscular HGB CONC 32.6 g/dL (32.0-36.0); Mean Corpuscular Hemoglobin 29.1 pg (27.0-31.0); Mean Corpuscular Volume 89.3 fL (78.0-98.0); Mean Platelet Volume 9.4 fL (7.4-10.4); Platelet Count 46 thou/uL (130-400); RBC Distribution Width 11.8 % (11.5-14.5); Red Blood Cell (RBC) Count 4.56 mill/uL (4.20-5.40)
[2020-09-29 04:59] LABS: ALT (SGPT) 13 U/L (8-55); AST (SGOT) 17 U/L (5-34); Albumin 4.1 g/dL (3.4-4.8); Alkaline Phosphatase 57 U/L (40-110); Anion Gap 15 mmol/L (10-20); BUN (Urea Nitrogen) 10 mg/dL (9.8-20.1); Bilirubin, Total 0.7 mg/dL (0.2-1.2); Calc. Creatinine Clearance 98 mL/min (70-130); Calcium 9.4 mg/dL (7.8-10.44); Carbon Dioxide 22 mmol/L (23-31); Chloride 97 mmol/L (98-107); Globulin 4.7 g/dL (2.4-3.5); Glucose 146 mg/dL (80-115); Protein, Total 8.8 g/dL (5.8-8.1); Sodium 131 mmol/L (136-145)
[2020-09-29 05:02] LABS: Potassium 2.9 mmol/L (3.5-5.1)
[2020-09-29 05:05] LABS: Lymphocytes 36 % (21-51); MDiff Complete? YES; Metamyelocyte 6 % (0-0); Monocytes 1 % (0-10); Myelocyte 2 % (0-0); Neutrophil 54 % (42-75); Nucleated RBC 1 % (0); Platelet Morphology Comment Appears Decreased; Reactive Lymphocytes 1 % (0-10)
[2020-09-29] MEDS ORDERED: Electrolyte Replacement Protocol FS PRN (05:30)
[2020-09-29] MEDS: Potassium Chloride 20 MEQ TAB PO SCH ×2 (06:03→08:43)
[2020-09-29] MEDS ORDERED: NS 0.9% w/ 20 MEQ KCL 1,000 ML/1,000 ML BAG IV SCH (08:00)
[2020-09-29] MEDS: Dexamethasone Sod Phosphate 40 MG in Sodium Chloride 0.9% 50 ML IVPB SCH (08:40)
[2020-09-29 13:18] LABS: #Lymphocytes 0.7 thou/uL (1.20-3.40); #Monocytes 0.1 thou/uL (0.11-0.59); #Neutrophils 4.2 thou/uL (1.40-6.50); %Basophils 0.2 % (0.0-1.0); %Lymphocytes 14.2 % (21.0-51.0); %Neutrophils 84.7 % (42.0-75.0); Hemoglobin 12.6 g/dL (12.0-16.0); Mean Corpuscular HGB CONC 32.9 g/dL (32.0-36.0); Mean Corpuscular Hemoglobin 29.5 pg (27.0-31.0); Mean Corpuscular Volume 89.7 fL (78.0-98.0); Mean Platelet Volume 9.4 fL (7.4-10.4); Platelet Count 38 thou/uL (130-400); RBC Distribution Width 12.1 % (11.5-14.5); Red Blood Cell (RBC) Count 4.28 mill/uL (4.20-5.40)
[2020-09-29 13:40] LABS: Anion Gap 15 mmol/L (10-20); BUN (Urea Nitrogen) 11 mg/dL (9.8-20.1); Calc. Creatinine Clearance 94 mL/min (70-130); Calcium 9.2 mg/dL (7.8-10.44); Carbon Dioxide 20 mmol/L (23-31); Chloride 100 mmol/L (98-107); Glucose 236 mg/dL (80-115); Magnesium 1.9 mg/dL (1.6-2.6); Potassium 4.1 mmol/L (3.5-5.1); Sodium 131 mmol/L (136-145)
[2020-09-29] MEDS: Atorvastatin Calcium 10 MG TAB PO SCH (21:00)
[2020-09-30 05:46] LABS: Band 15 % (5-11); Hemoglobin 12.4 g/dL (12.0-16.0); Lymphocytes 19 % (21-51); MDiff Complete? YES; Mean Corpuscular HGB CONC 32.1 g/dL (32.0-36.0); Mean Corpuscular Hemoglobin 29.6 pg (27.0-31.0); Mean Corpuscular Volume 92.3 fL (78.0-98.0); Mean Platelet Volume 10.7 fL (7.4-10.4); Monocytes 4 % (0-10); Neutrophil 62 % (42-75); Platelet Count 30 thou/uL (130-400); Platelet Morphology Comment Appears Decreased; RBC Distribution Width 12.2 % (11.5-14.5); Red Blood Cell (RBC) Count 4.17 mill/uL (4.20-5.40); White Blood Cell (WBC) Count 7.8 thou/uL (4.8-10.8)
[2020-09-30] MEDS ORDERED: Magnesium 2 GM/50 ML 2 GM in Premix Bag 1 BAG IVPB SCH (06:15)
[2020-09-30] MEDS ORDERED: Dextrose 50% Abboject 50 ML SYRINGE SLOW IVP PRN (07:15)
[2020-09-30] MEDS ORDERED: Dextrose 5% in Water 1,000 ML IV PRN (07:15)
[2020-09-30] MEDS ORDERED: HumaLOG 300 UNITS/3 ML VIAL SC PRN ×2 (07:15→20:45)
[2020-09-30] MEDS: Dexamethasone Sod Phosphate 40 MG in Sodium Chloride 0.9% 50 ML IVPB SCH (10:00)
[2020-09-30] MEDS: Atorvastatin Calcium 10 MG TAB PO SCH (20:50)
[2020-10-01 05:22] LABS: #Lymphocytes 1.3 thou/uL (1.20-3.40); #Monocytes 0.2 thou/uL (0.11-0.59); #Neutrophils 2.3 thou/uL (1.40-6.50); %Basophils 0.4 % (0.0-1.0); %Eosinophils 0.3 % (0.0-10.0); %Monocytes 4.7 % (0.0-10.0); %Neutrophils 59.6 % (42.0-75.0); Hemoglobin 12.5 g/dL (12.0-16.0); Mean Corpuscular HGB CONC 32.1 g/dL (32.0-36.0); Mean Corpuscular Hemoglobin 29.4 pg (27.0-31.0); Mean Corpuscular Volume 91.5 fL (78.0-98.0); Mean Platelet Volume 11.7 fL (7.4-10.4); Platelet Count 22 thou/uL (130-400); RBC Distribution Width 11.9 % (11.5-14.5); Red Blood Cell (RBC) Count 4.26 mill/uL (4.20-5.40); White Blood Cell (WBC) Count 3.8 thou/uL (4.8-10.8)
[2020-10-01 05:51] LABS: ALT (SGPT) 13 U/L (8-55); AST (SGOT) 13 U/L (5-34); Albumin 3.7 g/dL (3.4-4.8); Alkaline Phosphatase 44 U/L (40-110); Anion Gap 11 mmol/L (10-20); BUN (Urea Nitrogen) 16 mg/dL (9.8-20.1); Bilirubin, Total 0.4 mg/dL (0.2-1.2); Calc. Creatinine Clearance 104 mL/min (70-130); Calcium 8.9 mg/dL (7.8-10.44); Carbon Dioxide 23 mmol/L (23-31); Chloride 102 mmol/L (98-107); Globulin 3.7 g/dL (2.4-3.5); Glucose 101 mg/dL (80-115); Potassium 3.4 mmol/L (3.5-5.1); Protein, Total 7.4 g/dL (5.8-8.1); Sodium 133 mmol/L (136-145)
[2020-10-01] MEDS ORDERED: Potassium Chloride 20 MEQ TAB PO SCH (06:45)
[2020-10-01] MEDS: Dexamethasone Sod Phosphate 40 MG in Sodium Chloride 0.9% 50 ML IVPB SCH (09:17)
[2020-10-01] MEDS ORDERED: Sodium Bicarbonate 2.5 MEQ/5 ML VIAL ONE (13:02)
[2020-10-01] MEDS ORDERED: Midazolam HCl 2 mg/2 ml Vial ONE (13:02)
[2020-10-01] MEDS ORDERED: Fentanyl 100 MCG/2 ML VIAL ONE (13:03)
[2020-10-01 15:51] VITALS: BP 122/72; TEMP 98.3
== END 2020-10-01 17:40 | disposition home or self-care (01) | DRG 813 ==
LOC: ERS 14:36 → 2NO 16:56
PROVIDERS: ADMIT Internal Medicine; ATTEND Internal Medicine
PROC: 30233R1 Transfusion of Nonautologous Platelets into Peripheral Vein, Percutaneous Approach (ICD-10-PCS; 2020-09-28)
PROC: 30233S1 Transfusion of Nonautologous Globulin into Peripheral Vein, Percutaneous Approach (ICD-10-PCS; 2020-09-28)
PROC: 07DR3ZX Extraction of Iliac Bone Marrow, Percutaneous Approach, Diagnostic (ICD-10-PCS; principal; 2020-10-01)
DX: D69.3 Immune thrombocytopenic purpura (principal); I10 Essential (primary) hypertension; E78.5 Hyperlipidemia, unspecified; R73.9 Hyperglycemia, unspecified; T38.0X5A Adverse effect of glucocorticoids and synthetic analogues, initial encounter; D72.819 Decreased white blood cell count, unspecified; Z20.822 Contact with and (suspected) exposure to COVID-19; E87.6 Hypokalemia; Z90.710 Acquired absence of both cervix and uterus
CPT/HCPCS: 20225; 36415; 36416; 36430; 77012; 80053; 81003; 83605; 83735; 85007; 85025; 85027; 85049; 85060; 85097; 85240; 85245; 85246; 85247; 85610; 85730; 86850; 86900; 86901; 87040; 87635; 88121; 88184; 88237; 88305; 88311; 88313; 88341; 88342; 96365; 96375; J1100; J1568; J1815; J2250; J3010; J3475; J3480; P9035; U0003; U0005

== ENCOUNTER 2020-10-03 08:58 | Day surgery (SDC) | payer BC ==
[2020-10-03] MEDS ORDERED: Sodium Chloride 0.9% 20 ML ONE (09:10)
[2020-10-03] MEDS ORDERED: Acetaminophen 500 MG TAB PO SCH (09:15)
[2020-10-03] MEDS ORDERED: diphenhydrAMINE 25 MG CAP PO SCH (09:15)
[2020-10-03 11:01] VITALS: BP 167/89; TEMP 98
== END 2020-10-03 11:02 | disposition home or self-care (01) ==
LOC: ONC/OP 08:58
PROVIDERS: ATTEND Internal Medicine Hematology & Oncology
PROC: 30233R1 Transfusion of Nonautologous Platelets into Peripheral Vein, Percutaneous Approach (ICD-10-PCS; principal; 2020-10-03)
DX: D69.6 Thrombocytopenia, unspecified (principal)
CPT/HCPCS: 36430; 86850; 86900; 86901; P9035; Q0163

== ENCOUNTER 2020-10-08 09:30 | Day surgery (SDC) | payer BC ==
[2020-10-08 09:50] VITALS: BP 149/79
[2020-10-08] MEDS ORDERED: diphenhydrAMINE 25 MG CAP PO SCH (10:00)
[2020-10-08] MEDS ORDERED: Acetaminophen 500 MG TAB PO SCH (10:00)
[2020-10-08 11:29] VITALS: TEMP 97.9
== END 2020-10-08 11:29 | disposition home or self-care (01) ==
LOC: ONC/OP 09:30
PROVIDERS: ATTEND Internal Medicine Hematology & Oncology
PROC: 30233R1 Transfusion of Nonautologous Platelets into Peripheral Vein, Percutaneous Approach (ICD-10-PCS; principal; 2020-10-08)
DX: D69.6 Thrombocytopenia, unspecified (principal)
CPT/HCPCS: 36415; 36430; 80053; 82248; 83615; 84100; 84550; 86850; 86900; 86901; P9035

== ENCOUNTER 2020-10-15 09:50 | Day surgery (SDC) | payer BC ==
[2020-10-15] MEDS ORDERED: Sodium Chloride 0.9% 20 ML ONE (09:58)
[2020-10-15] MEDS ORDERED: diphenhydrAMINE 25 MG CAP PO SCH (10:00)
[2020-10-15] MEDS ORDERED: Acetaminophen 500 MG TAB PO SCH (10:00)
[2020-10-15 12:16] VITALS: BP 176/88; TEMP 98.1
== END 2020-10-15 12:18 | disposition home or self-care (01) ==
LOC: ONC/OP 09:50
PROVIDERS: ATTEND Internal Medicine Hematology & Oncology
PROC: 30233R1 Transfusion of Nonautologous Platelets into Peripheral Vein, Percutaneous Approach (ICD-10-PCS; principal; 2020-10-15)
DX: D69.6 Thrombocytopenia, unspecified (principal); D64.9 Anemia, unspecified
CPT/HCPCS: 36430; 85025; 86850; 86900; 86901; P9035; Q0163

== ENCOUNTER 2020-10-22 10:29 | Day surgery (SDC) | payer BC ==
[2020-10-22] MEDS ORDERED: Sodium Chloride 0.9% 20 ML ONE (10:42)
[2020-10-22] MEDS ORDERED: Acetaminophen 500 MG TAB PO SCH (11:00)
[2020-10-22] MEDS ORDERED: diphenhydrAMINE 25 MG CAP PO SCH (11:00)
[2020-10-22 12:33] VITALS: BP 193/91; TEMP 98
== END 2020-10-22 12:33 | disposition home or self-care (01) ==
LOC: ONC/OP 10:29
PROVIDERS: ATTEND Internal Medicine Hematology & Oncology
PROC: 30233R1 Transfusion of Nonautologous Platelets into Peripheral Vein, Percutaneous Approach (ICD-10-PCS; principal; 2020-10-22)
DX: D69.6 Thrombocytopenia, unspecified (principal); D64.9 Anemia, unspecified
CPT/HCPCS: 36430; 80053; 82248; 83615; 84100; 84550; 86850; 86900; 86901; P9035; Q0163

== ENCOUNTER 2020-10-26 08:24 | Day surgery (SDC) | payer BC ==
[2020-10-26] MEDS ORDERED: diphenhydrAMINE 25 MG CAP PO SCH (09:00)
[2020-10-26] MEDS ORDERED: Acetaminophen 500 MG TAB PO SCH (09:00)
[2020-10-26] MEDS ORDERED: Sodium Chloride 0.9% 20 ML ONE (09:04)
[2020-10-26 11:30] VITALS: BP 172/84; TEMP 97.9
== END 2020-10-26 11:40 | disposition home or self-care (01) ==
LOC: ONC/OP 08:24
PROVIDERS: ATTEND Internal Medicine Hematology & Oncology
PROC: 30233R1 Transfusion of Nonautologous Platelets into Peripheral Vein, Percutaneous Approach (ICD-10-PCS; principal; 2020-10-26)
DX: D69.6 Thrombocytopenia, unspecified (principal); D64.9 Anemia, unspecified
CPT/HCPCS: 36430; 86850; 86900; 86901; P9035; Q0163

== ENCOUNTER 2020-11-06 09:33 | Day surgery (SDC) | payer BC ==
[2020-11-06] MEDS ORDERED: Acetaminophen 500 MG TAB PO SCH (10:00)
[2020-11-06] MEDS ORDERED: diphenhydrAMINE 25 MG CAP PO SCH (10:00)
[2020-11-06 13:07] VITALS: BP 146/80; TEMP 97.9
== END 2020-11-06 13:08 | disposition home or self-care (01) ==
LOC: ONC/OP 09:33
PROVIDERS: ATTEND Internal Medicine Hematology & Oncology
PROC: 30233R1 Transfusion of Nonautologous Platelets into Peripheral Vein, Percutaneous Approach (ICD-10-PCS; principal; 2020-11-06)
DX: D69.6 Thrombocytopenia, unspecified (principal); D64.9 Anemia, unspecified
CPT/HCPCS: 36430; 86850; 86900; 86901; P9035; Q0163

== ENCOUNTER 2020-11-13 11:59 | Day surgery (SDC) | payer BC ==
[2020-11-13] MEDS ORDERED: Sodium Chloride 0.9% 20 ML ONE (12:14)
[2020-11-13] MEDS ORDERED: Acetaminophen 500 MG TAB PO SCH (12:15)
[2020-11-13] MEDS ORDERED: diphenhydrAMINE 25 MG CAP PO SCH (12:15)
[2020-11-13 16:24] VITALS: BP 171/82; TEMP 98
== END 2020-11-13 16:24 | disposition home or self-care (01) ==
LOC: ONC/OP 11:59
PROVIDERS: ATTEND Internal Medicine Hematology & Oncology
PROC: 30233R1 Transfusion of Nonautologous Platelets into Peripheral Vein, Percutaneous Approach (ICD-10-PCS; principal; 2020-11-13)
DX: D69.6 Thrombocytopenia, unspecified (principal); D64.9 Anemia, unspecified
CPT/HCPCS: 36430; 86850; 86900; 86901; P9035; Q0163

== ENCOUNTER 2020-11-19 14:17 | Day surgery (SDC) | payer BC ==
[2020-11-19] MEDS ORDERED: Acetaminophen 500 MG TAB PO SCH (15:00)
[2020-11-19] MEDS ORDERED: diphenhydrAMINE 25 MG CAP PO SCH (15:00)
[2020-11-19] MEDS ORDERED: Sodium Chloride 0.9% 20 ML ONE (15:01)
[2020-11-19 16:05] VITALS: BP 168/90; TEMP 97.7
== END 2020-11-19 16:05 | disposition home or self-care (01) ==
LOC: ONC/OP 14:17
PROVIDERS: ATTEND Internal Medicine Hematology & Oncology
PROC: 30233N1 Transfusion of Nonautologous Red Blood Cells into Peripheral Vein, Percutaneous Approach (ICD-10-PCS; principal; 2020-11-19)
DX: D69.6 Thrombocytopenia, unspecified (principal); D64.9 Anemia, unspecified
CPT/HCPCS: 36430; 80053; 82248; 83615; 84100; 84550; 86850; 86900; 86901; P9035; Q0163

== ENCOUNTER 2020-11-26 12:02 | Day surgery (SDC) | payer BC ==
[2020-11-26] MEDS ORDERED: Acetaminophen 500 MG TAB PO SCH (12:45)
[2020-11-26] MEDS ORDERED: diphenhydrAMINE 25 MG CAP PO SCH (12:45)
[2020-11-26] MEDS ORDERED: Sodium Chloride 0.9% 20 ML ONE (13:02)
== END 2020-11-26 13:20 | disposition home or self-care (01) ==
LOC: ONC/OP 12:02
PROVIDERS: ATTEND Internal Medicine Hematology & Oncology
PROC: 30233R1 Transfusion of Nonautologous Platelets into Peripheral Vein, Percutaneous Approach (ICD-10-PCS; principal; 2020-11-26)
DX: D69.6 Thrombocytopenia, unspecified (principal); D64.9 Anemia, unspecified
CPT/HCPCS: 86850; 86900; 86901; J1642; Q0163

== ENCOUNTER 2020-11-27 08:41 | Day surgery (SDC) | payer BC ==
[2020-11-27] MEDS ORDERED: Sodium Chloride 0.9% 20 ML ONE ×2 (08:49→09:06)
[2020-11-27] MEDS ORDERED: Acetaminophen 500 MG TAB PO SCH (09:00)
[2020-11-27] MEDS ORDERED: diphenhydrAMINE 25 MG CAP PO SCH (09:00)
[2020-11-27 11:02] VITALS: BP 133/78; TEMP 98.4
== END 2020-11-27 11:02 | disposition home or self-care (01) ==
LOC: ONC/OP 08:41
PROVIDERS: ATTEND Internal Medicine Hematology & Oncology
PROC: 30233R1 Transfusion of Nonautologous Platelets into Peripheral Vein, Percutaneous Approach (ICD-10-PCS; principal; 2020-11-27)
DX: D69.6 Thrombocytopenia, unspecified (principal); D64.9 Anemia, unspecified
CPT/HCPCS: 36430; 86850; 86900; 86901; J1642; P9035; Q0163

== ENCOUNTER 2020-12-03 08:54 | Day surgery (SDC) | payer BC ==
[2020-12-03] MEDS ORDERED: Acetaminophen 500 MG TAB PO PRN (09:18)
[2020-12-03] MEDS ORDERED: diphenhydrAMINE 25 MG CAP PO PRN (09:18)
[2020-12-03] MEDS ORDERED: Sodium Chloride 0.9% 20 ML ONE (09:43)
[2020-12-03 11:05] VITALS: TEMP 97.6
[2020-12-03 11:08] VITALS: BP 129/70
== END 2020-12-03 13:19 | disposition home or self-care (01) ==
LOC: ONC/OP 08:54
PROVIDERS: ATTEND Internal Medicine Hematology & Oncology
PROC: 30233R1 Transfusion of Nonautologous Platelets into Peripheral Vein, Percutaneous Approach (ICD-10-PCS; principal; 2020-12-03)
DX: D69.6 Thrombocytopenia, unspecified (principal); D64.9 Anemia, unspecified
CPT/HCPCS: 36430; 86850; 86900; 86901; J1642; P9035; Q0163

== ENCOUNTER 2020-12-10 09:19 | Day surgery (SDC) | payer BC ==
[2020-12-10] MEDS ORDERED: Sodium Chloride 0.9% 20 ML ONE (09:29)
[2020-12-10] MEDS ORDERED: diphenhydrAMINE 25 MG CAP PO SCH (09:45)
[2020-12-10] MEDS ORDERED: Acetaminophen 500 MG TAB PO SCH (09:45)
[2020-12-10 12:42] VITALS: BP 132/77; TEMP 97.9
== END 2020-12-10 12:42 | disposition home or self-care (01) ==
LOC: ONC/OP 09:19
PROVIDERS: ATTEND Internal Medicine Hematology & Oncology
PROC: 30233R1 Transfusion of Nonautologous Platelets into Peripheral Vein, Percutaneous Approach (ICD-10-PCS; principal; 2020-12-10)
DX: D69.6 Thrombocytopenia, unspecified (principal); D64.9 Anemia, unspecified
CPT/HCPCS: 36430; 86850; 86900; 86901; J1642; P9035; Q0163

== ENCOUNTER 2020-12-14 12:32 | Day surgery (SDC) | payer BC ==
[2020-12-14] MEDS ORDERED: Acetaminophen 500 MG TAB PO SCH (12:45)
[2020-12-14] MEDS ORDERED: diphenhydrAMINE 25 MG CAP PO SCH (12:45)
[2020-12-14] MEDS ORDERED: Sodium Chloride 0.9% 20 ML ONE (12:53)
[2020-12-14 13:55] VITALS: BP 134/75; TEMP 97.6
== END 2020-12-14 13:55 | disposition home or self-care (01) ==
LOC: ONC/OP 12:32
PROVIDERS: ATTEND Internal Medicine Hematology & Oncology
PROC: 30233R1 Transfusion of Nonautologous Platelets into Peripheral Vein, Percutaneous Approach (ICD-10-PCS; principal; 2020-12-14)
DX: D69.6 Thrombocytopenia, unspecified (principal); D64.9 Anemia, unspecified
CPT/HCPCS: 36430; 86850; 86900; 86901; J1642; P9035; Q0163

== ENCOUNTER 2020-12-18 13:51 | Day surgery (SDC) | payer BC ==
[2020-12-18] MEDS ORDERED: diphenhydrAMINE 25 MG CAP PO PRN (14:03)
[2020-12-18] MEDS ORDERED: Acetaminophen 500 MG TAB PO PRN (14:03)
[2020-12-18] MEDS ORDERED: Sodium Chloride 0.9% 20 ML ONE (14:29)
[2020-12-18 15:51] VITALS: BP 136/76; TEMP 96.5
== END 2020-12-18 15:53 | disposition home or self-care (01) ==
LOC: ONC/OP 13:51
PROVIDERS: ATTEND Internal Medicine Hematology & Oncology
PROC: 30233R1 Transfusion of Nonautologous Platelets into Peripheral Vein, Percutaneous Approach (ICD-10-PCS; principal; 2020-12-18)
DX: D69.6 Thrombocytopenia, unspecified (principal); D64.9 Anemia, unspecified
CPT/HCPCS: 36430; 80053; 82248; 83615; 84100; 84550; 86850; 86900; 86901; J1642; P9035; Q0163

== ENCOUNTER 2020-12-25 11:25 | Day surgery (SDC) | payer BC ==
[2020-12-25] MEDS ORDERED: Sodium Chloride 0.9% 20 ML ONE (11:33)
[2020-12-25] MEDS ORDERED: Acetaminophen 500 MG TAB PO PRN (11:56)
[2020-12-25] MEDS ORDERED: diphenhydrAMINE 25 MG CAP PO PRN (11:56)
[2020-12-25 12:47] VITALS: BP 143/80; TEMP 98.5
== END 2020-12-25 12:48 | disposition home or self-care (01) ==
LOC: ONC/OP 11:25
PROVIDERS: ATTEND Internal Medicine Hematology & Oncology
PROC: 30233R1 Transfusion of Nonautologous Platelets into Peripheral Vein, Percutaneous Approach (ICD-10-PCS; principal; 2020-12-25)
DX: D69.6 Thrombocytopenia, unspecified (principal); D64.9 Anemia, unspecified
CPT/HCPCS: 36430; 86850; 86900; 86901; J1642; P9035

== ENCOUNTER 2021-01-02 08:53 | Day surgery (SDC) | payer BC ==
[2021-01-02 11:09] VITALS: BP 117/64; TEMP 96.9
== END 2021-01-02 11:09 | disposition home or self-care (01) ==
LOC: ONC/OP 08:53
PROVIDERS: ATTEND Internal Medicine Hematology & Oncology
PROC: 30233R1 Transfusion of Nonautologous Platelets into Peripheral Vein, Percutaneous Approach (ICD-10-PCS; principal; 2021-01-02)
DX: D69.6 Thrombocytopenia, unspecified (principal); D64.9 Anemia, unspecified
CPT/HCPCS: 36430; 86850; 86900; 86901; J1642; P9035; Q0163

== ENCOUNTER 2021-02-26 12:39 | Outpatient (CLI) | payer BC | END 2021-02-26 12:40 | disposition home or self-care (01) | LOC: BICRAD 12:39 | PROVIDERS: ATTEND Internal Medicine | DX: C93.10 Chronic myelomonocytic leukemia not having achieved remission (principal); D46.Z Other myelodysplastic syndromes; D69.3 Immune thrombocytopenic purpura | CPT/HCPCS: 71046 ==

== ENCOUNTER 2021-03-07 09:48 | Day surgery (SDC) | payer BC ==
[2021-03-07] MEDS ORDERED: Acetaminophen 500 MG TAB PO SCH (10:15)
[2021-03-07] MEDS ORDERED: diphenhydrAMINE 25 MG CAP PO SCH (10:15)
[2021-03-07] MEDS ORDERED: Sodium Chloride 0.9% 20 ML ONE (11:06)
[2021-03-07 15:27] VITALS: TEMP 97.7
[2021-03-07 15:34] VITALS: BP 136/70
== END 2021-03-07 15:35 | disposition home or self-care (01) ==
LOC: ONC/OP 09:48
PROVIDERS: ATTEND Internal Medicine Hematology & Oncology
PROC: 30233N1 Transfusion of Nonautologous Red Blood Cells into Peripheral Vein, Percutaneous Approach (ICD-10-PCS; principal; 2021-03-07)
DX: D64.9 Anemia, unspecified (principal); D69.6 Thrombocytopenia, unspecified
CPT/HCPCS: 36430; 86850; 86900; 86901; J1642; P9016; Q0163

== ENCOUNTER 2021-03-25 09:52 | Day surgery (SDC) | payer BC ==
[2021-03-25] MEDS ORDERED: Sodium Chloride 0.9% 20 ML ONE (09:57)
[2021-03-25] MEDS ORDERED: Acetaminophen 500 MG TAB PO SCH (10:15)
[2021-03-25] MEDS ORDERED: diphenhydrAMINE 25 MG CAP PO SCH (10:15)
[2021-03-25 11:18] VITALS: BP 111/67; TEMP 97.4
== END 2021-03-25 11:19 | disposition home or self-care (01) ==
LOC: ONC/OP 09:52
PROVIDERS: ATTEND Internal Medicine Hematology & Oncology
PROC: 30233R1 Transfusion of Nonautologous Platelets into Peripheral Vein, Percutaneous Approach (ICD-10-PCS; principal; 2021-03-25)
DX: D64.9 Anemia, unspecified (principal); D69.6 Thrombocytopenia, unspecified
CPT/HCPCS: 36430; 86850; 86900; 86901; J1642; P9035; Q0163

== ENCOUNTER 2021-04-23 07:48 | Day surgery (SDC) | payer BC ==
[2021-04-23] MEDS ORDERED: Sodium Chloride 0.9% 20 ML ONE (08:37)
[2021-04-23] MEDS ORDERED: diphenhydrAMINE 25 MG CAP PO PRN (09:09)
[2021-04-23] MEDS ORDERED: Acetaminophen 500 MG TAB PO PRN (09:09)
[2021-04-23 14:11] VITALS: BP 134/70; TEMP 98.4
== END 2021-04-23 14:24 | disposition home or self-care (01) ==
LOC: ONC/OP 07:48
PROVIDERS: ATTEND Internal Medicine Hematology & Oncology
PROC: 30233R1 Transfusion of Nonautologous Platelets into Peripheral Vein, Percutaneous Approach (ICD-10-PCS; principal; 2021-04-23)
PROC: 30233N1 Transfusion of Nonautologous Red Blood Cells into Peripheral Vein, Percutaneous Approach (ICD-10-PCS; principal; 2021-04-23)
DX: D64.9 Anemia, unspecified (principal); D69.6 Thrombocytopenia, unspecified
CPT/HCPCS: 36430; 86850; 86900; 86901; P9035; P9040

== ENCOUNTER 2021-12-14 08:57 | Day surgery (SDC) | payer BC ==
[2021-12-14 10:11] VITALS: BMI 27.4
[2021-12-14] MEDS ORDERED: Acetaminophen 500 MG TAB PO SCH (10:15)
[2021-12-14] MEDS ORDERED: diphenhydrAMINE 25 MG CAP PO SCH (10:15)
[2021-12-14 17:26] VITALS: BP 135/86; TEMP 98.2
[2021-12-14 19:02] LABS: Anisocytosis SLIGHT = 6-15 cells (100X) (0-5/hpf); Band 2 % (5-11); Hemoglobin 8.7 g/dL (12.0-16.0); Lymphocytes 48 % (21-51); MDiff Complete? YES; Macrocytosis SLIGHT = 6-15 cells (100X) (0-5/hpf); Mean Corpuscular HGB CONC 33.5 g/dL (32.0-36.0); Mean Corpuscular Hemoglobin 34.6 pg (27.0-31.0); Monocytes 20 % (0-10); Neutrophil 14 % (42-75); Ovalocytes SLIGHT = 2-5 cells (100X) (0-1/hpf); Platelet Count 33 thou/uL (130-400); Platelet Morphology Comment Appears Decreased; Polychromasia SLIGHT = 2-3 cells (100X) (0-2/hpf); RBC Distribution Width 18.1 % (11.5-14.5); Reactive Lymphocytes 16 % (0-10); Red Blood Cell (RBC) Count 2.52 mill/uL (4.20-5.40); White Blood Cell (WBC) Count 1.6 thou/uL (4.8-10.8)
== END 2021-12-14 18:41 | disposition home or self-care (01) ==
LOC: ONC/OP 08:57 → SJJU 09:00 → ONC/OP 18:41
PROVIDERS: ATTEND Internal Medicine Hematology & Oncology
PROC: 30233R1 Transfusion of Nonautologous Platelets into Peripheral Vein, Percutaneous Approach (ICD-10-PCS; principal; 2021-12-14)
PROC: 30233N1 Transfusion of Nonautologous Red Blood Cells into Peripheral Vein, Percutaneous Approach (ICD-10-PCS; principal; 2021-12-14)
DX: D69.6 Thrombocytopenia, unspecified (principal); D64.9 Anemia, unspecified
CPT/HCPCS: 36415; 36430; 85025; 86850; 86900; 86901; P9035; P9040

== ENCOUNTER 2022-01-02 14:27 | Day surgery (SDC) | payer BC ==
[2022-01-02] MEDS ORDERED: Acetaminophen 500 MG TAB ONE (14:45)
[2022-01-02] MEDS ORDERED: diphenhydrAMINE 25 MG CAP ONE (14:45)
[2022-01-02 16:25] VITALS: BP 109/59; TEMP 98.2
== END 2022-01-02 16:29 | disposition home or self-care (01) ==
LOC: ONC/OP 14:27
PROVIDERS: ATTEND Internal Medicine Hematology & Oncology
PROC: 30233R1 Transfusion of Nonautologous Platelets into Peripheral Vein, Percutaneous Approach (ICD-10-PCS; principal; 2022-01-02)
DX: D69.6 Thrombocytopenia, unspecified (principal); D64.9 Anemia, unspecified
CPT/HCPCS: 36430; 86850; 86900; 86901; P9035

== ENCOUNTER 2022-01-06 09:55 | Day surgery (SDC) | payer BC ==
[2022-01-06] MEDS ORDERED: Acetaminophen 500 MG TAB ONE (14:17)
[2022-01-06] MEDS ORDERED: diphenhydrAMINE 25 MG CAP ONE (14:17)
[2022-01-07 08:16] VITALS: BP 162/74; TEMP 99.1
== END 2022-01-06 16:31 | disposition home or self-care (01) ==
LOC: ONC/OP 09:55
PROVIDERS: ATTEND Internal Medicine Hematology & Oncology
PROC: 30233N1 Transfusion of Nonautologous Red Blood Cells into Peripheral Vein, Percutaneous Approach (ICD-10-PCS; principal; 2022-01-06)
DX: D64.9 Anemia, unspecified (principal); D69.6 Thrombocytopenia, unspecified
CPT/HCPCS: 36430; 86850; 86900; 86901; P9040

== ENCOUNTER 2022-02-14 09:00 | Day surgery (SDC) | payer BC ==
[2022-02-13 14:26] VITALS: BMI 27.1
[2022-02-14 11:03] VITALS: BP 162/83; TEMP 97.9
[2022-02-14] MEDS ORDERED: Acetaminophen 500 MG TAB ONE (11:13)
[2022-02-14] MEDS ORDERED: diphenhydrAMINE 25 MG CAP ONE (11:13)
[2022-02-14] MEDS ORDERED: Sodium Bicarbonate 2.5 MEQ/5 ML VIAL ONE (11:35)
[2022-02-14] MEDS ORDERED: Fentanyl 100 MCG/2 ML VIAL ONE (11:35)
[2022-02-14 13:53] LABS: #Lymphocytes 1.4 thou/uL (1.20-3.40); #Monocytes 0.4 thou/uL (0.11-0.59); #Neutrophils 1.4 thou/uL (1.40-6.50); %Basophils 0.4 % (0.0-1.0); %Eosinophils 0.7 % (0.0-10.0); %Lymphocytes 42.8 % (21.0-51.0); %Monocytes 11.1 % (0.0-10.0); %Neutrophils 44.9 % (42.0-75.0); Hemoglobin 7.6 g/dL (12.0-16.0); Mean Corpuscular HGB CONC 32.5 g/dL (32.0-36.0); Mean Corpuscular Hemoglobin 31.5 pg (27.0-31.0); Mean Platelet Volume 9.7 fL (7.4-10.4); Platelet Count 83 thou/uL (130-400); RBC Distribution Width 19.6 % (11.5-14.5); White Blood Cell (WBC) Count 3.2 thou/uL (4.8-10.8)
== END 2022-02-14 15:00 | disposition home or self-care (01) ==
LOC: ONC/OP 09:00
PROVIDERS: ATTEND Internal Medicine Hematology & Oncology
PROC: 30233N1 Transfusion of Nonautologous Red Blood Cells into Peripheral Vein, Percutaneous Approach (ICD-10-PCS; principal; 2022-02-14)
PROC: 07DR3ZX Extraction of Iliac Bone Marrow, Percutaneous Approach, Diagnostic (ICD-10-PCS; principal; 2022-02-14)
PROC: 079T3ZX Drainage of Bone Marrow, Percutaneous Approach, Diagnostic (ICD-10-PCS; principal; 2022-02-14)
DX: D69.6 Thrombocytopenia, unspecified (principal); C93.10 Chronic myelomonocytic leukemia not having achieved remission; D64.9 Anemia, unspecified; E78.5 Hyperlipidemia, unspecified; I10 Essential (primary) hypertension; Z79.2 Long term (current) use of antibiotics; Z79.899 Other long term (current) drug therapy
CPT/HCPCS: 36430; 38222; 77002; 85025; 85097; 86850; 86900; 86901; 88184; 88237; 88305; 88311; 88313; 88341; 88342; J3010; P9035

== ENCOUNTER 2022-02-18 11:05 | Day surgery (SDC) | payer BC | END 2022-02-18 18:13 | disposition home or self-care (01) | LOC: ONC/OP 11:05 | PROVIDERS: ATTEND Internal Medicine Hematology & Oncology | DX: D64.9 Anemia, unspecified (principal); Z53.8 Procedure and treatment not carried out for other reasons ==

== ENCOUNTER 2022-03-02 19:35 | Inpatient (IN) | payer BC ==
[2022-03-02 20:39] LABS: Hemoglobin 6.8 g/dL (12.0-16.0); Mean Corpuscular HGB CONC 33.5 g/dL (32.0-36.0); Mean Corpuscular Hemoglobin 32.1 pg (27.0-31.0); Mean Corpuscular Volume 95.7 fL (78.0-98.0); RBC Distribution Width 18.8 % (11.5-14.5); Red Blood Cell (RBC) Count 2.11 mill/uL (4.20-5.40)
[2022-03-02 20:41] LABS: INR-International Normal Ratio 1.1; Platelet Count Less than 2 thou/uL (130-400); Prothrombin Time 14.1 sec (12.0-14.7)
[2022-03-02 20:42] LABS: PTT 28.5 sec (22.9-36.1)
[2022-03-02 20:50] LABS: ALT (SGPT) 20 U/L (8-55); AST (SGOT) 16 U/L (5-34); Albumin 3.6 g/dL (3.4-4.8); Alkaline Phosphatase 47 U/L (40-110); Anion Gap 11 mmol/L (10-20); BUN (Urea Nitrogen) 25 mg/dL (9.8-20.1); Bilirubin, Total 0.7 mg/dL (0.2-1.2); Calc. Creatinine Clearance 0 mL/min (70-130); Calcium 8.4 mg/dL (7.8-10.44); Carbon Dioxide 22 mmol/L (23-31); Chloride 109 mmol/L (98-107); Estimated GFR 90; Globulin 2.1 g/dL (2.4-3.5); Glucose 99 mg/dL (80-115); Protein, Total 5.7 g/dL (5.8-8.1); Sodium 138 mmol/L (136-145)
[2022-03-02 20:55] LABS: Band 9 % (5-11); Lymphocytes 47 % (21-51); MDiff Complete? YES; Monocytes 5 % (0-10); Neutrophil 29 % (42-75); Platelet Morphology Comment Appears Decreased; Reactive Lymphocytes 10 % (0-10); Schistocytes SLIGHT = 2-5 cells (100X) (0-1/hpf); Tear Drops SLIGHT = 2-5 cells (100X) (0-1/hpf); White Blood Cell (WBC) Count 1.7 thou/uL (4.8-10.8)
[2022-03-02] MEDS ORDERED: HYDROcodone/Acetaminophen 7.5/325 mg Tablet PO PRN (21:47)
[2022-03-02] MEDS ORDERED: Acetaminophen 325 MG TAB PO PRN (21:47)
[2022-03-02] MEDS ORDERED: Zolpidem Tartrate 5 MG TAB PO PRN (21:47)
[2022-03-02] MEDS ORDERED: Ondansetron ODT 4 MG TAB PO PRN (21:47)
[2022-03-02] MEDS ORDERED: diphenhydrAMINE 25 MG CAP PO PRN (21:50)
[2022-03-02] MEDS ORDERED: diphenhydrAMINE 25 MG CAP PO SCH (22:00)
[2022-03-02 22:18] LABS: SARS-CoV-2 NAA Rapid Test DETECTED (NotDetected)
[2022-03-02] MEDS ORDERED: HYDROcodone/Acetaminophen 5/325 mg Tablet ONE (22:24)
[2022-03-02] MEDS: Sodium Chloride 0.9% 1,000 ML IV SCH (23:28)
[2022-03-02 23:39] VITALS: BMI 26.4
[2022-03-03 06:51] LABS: Hemoglobin 6.8 g/dL (12.0-16.0); Mean Corpuscular HGB CONC 33.7 g/dL (32.0-36.0); Mean Corpuscular Hemoglobin 31.7 pg (27.0-31.0); Mean Platelet Volume 9.3 fL (7.4-10.4); Platelet Count 102 thou/uL (130-400); RBC Distribution Width 18.8 % (11.5-14.5); Red Blood Cell (RBC) Count 2.15 mill/uL (4.20-5.40); White Blood Cell (WBC) Count 1.4 thou/uL (4.8-10.8)
[2022-03-03 07:35] LABS: ALT (SGPT) 19 U/L (8-55); AST (SGOT) 16 U/L (5-34); Albumin 3.4 g/dL (3.4-4.8); Alkaline Phosphatase 51 U/L (40-110); Anion Gap 11 mmol/L (10-20); BUN (Urea Nitrogen) 13 mg/dL (9.8-20.1); Bilirubin, Total 1.3 mg/dL (0.2-1.2); Calc. Creatinine Clearance 100 mL/min (70-130); Calcium 8.6 mg/dL (7.8-10.44); Carbon Dioxide 22 mmol/L (23-31); Chloride 110 mmol/L (98-107); Estimated GFR 98; Globulin 2.1 g/dL (2.4-3.5); Glucose 93 mg/dL (80-115); Protein, Total 5.5 g/dL (5.8-8.1); Sodium 139 mmol/L (136-145)
[2022-03-03] MEDS: valACYclovir 500 MG TAB PO SCH ×2 (08:02→20:34)
[2022-03-03 09:56] LABS: Band 4 % (5-11); Hypochromia SLIGHT = 6-15 cells (100X) (0-5/hpf); Lymphocytes 72 % (21-51); MDiff Complete? YES; Neutrophil 24 % (42-75); Platelet Morphology Comment Appears Decreased; Polychromasia SLIGHT = 2-3 cells (100X) (0-2/hpf); Schistocytes SLIGHT = 2-5 cells (100X) (0-1/hpf); Tear Drops SLIGHT = 2-5 cells (100X) (0-1/hpf)
[2022-03-03] MEDS: Atovaquone 750 MG/5 ML UDCUP PO SCH (09:58)
[2022-03-03] MEDS: Sodium Chloride 0.9% 1,000 ML IV SCH (12:30)
[2022-03-03] MEDS: MG PLUS PROTEIN PO SCH ×2 (14:59→20:35)
[2022-03-03] MEDS ORDERED: POSACONAZOLE 100 MG PO SCH (15:00)
[2022-03-03] MEDS: Potassium Chloride 20 MEQ TAB PO SCH (17:28)
[2022-03-03] MEDS: Ursodiol 300 MG CAP PO SCH (20:35)
[2022-03-03] MEDS ORDERED: Atorvastatin Calcium 10 MG TAB PO SCH (21:00)
[2022-03-03 22:22] VITALS: BP 144/76
[2022-03-04] MEDS: Sodium Chloride 0.9% 1,000 ML IV SCH (01:45)
[2022-03-04 04:42] LABS: ALT (SGPT) 20 U/L (8-55); AST (SGOT) 17 U/L (5-34); Albumin 3.2 g/dL (3.4-4.8); Alkaline Phosphatase 52 U/L (40-110); Anion Gap 9 mmol/L (10-20); BUN (Urea Nitrogen) 15 mg/dL (9.8-20.1); Bilirubin, Total 0.7 mg/dL (0.2-1.2); Calc. Creatinine Clearance 99 mL/min (70-130); Calcium 8.5 mg/dL (7.8-10.44); Carbon Dioxide 25 mmol/L (23-31); Chloride 109 mmol/L (98-107); Estimated GFR 98; Globulin 2.1 g/dL (2.4-3.5); Glucose 97 mg/dL (80-115); Potassium 4.2 mmol/L (3.5-5.1); Protein, Total 5.3 g/dL (5.8-8.1); Sodium 139 mmol/L (136-145)
[2022-03-04 05:33] LABS: Band 4 % (5-11); Hemoglobin 8.2 g/dL (12.0-16.0); Lymphocytes 75 % (21-51); MDiff Complete? YES; Mean Corpuscular HGB CONC 33.3 g/dL (32.0-36.0); Mean Corpuscular Hemoglobin 30.9 pg (27.0-31.0); Mean Corpuscular Volume 92.8 fL (78.0-98.0); Mean Platelet Volume 10.5 fL (7.4-10.4); Monocytes 1 % (0-10); Neutrophil 19 % (42-75); Platelet Count 62 thou/uL (130-400); Platelet Morphology Comment Appears Decreased; RBC Distribution Width 17.6 % (11.5-14.5); RBC Morphology Normal; Reactive Lymphocytes 1 % (0-10); Red Blood Cell (RBC) Count 2.67 mill/uL (4.20-5.40); White Blood Cell (WBC) Count 1.3 thou/uL (4.8-10.8)
[2022-03-04] MEDS: Potassium Chloride 20 MEQ TAB PO SCH (08:31)
[2022-03-04] MEDS: Ursodiol 300 MG CAP PO SCH (08:32)
[2022-03-04] MEDS: valACYclovir 500 MG TAB PO SCH (08:32)
[2022-03-04] MEDS: Atovaquone 750 MG/5 ML UDCUP PO SCH (08:32)
[2022-03-04] MEDS: MG PLUS PROTEIN PO SCH (08:33)
[2022-03-04] MEDS ORDERED: Multivit, Therapeutic 1 TAB PO SCH (09:00)
[2022-03-04] MEDS ORDERED: POSACONAZOLE 100 MG PO SCH (09:00)
[2022-03-04] MEDS ORDERED: Cholecalciferol 1,000 UNITS (25 MCG) TAB PO SCH (09:00)
[2022-03-04] MEDS ORDERED: Calcium Carbonate 500 MG ChewTAB PO SCH (09:00)
[2022-03-04 09:07] VITALS: TEMP 97.8
[2022-03-04 09:44] LABS: Bacteria/HPF None Seen HPF (None Seen); Bilirubin Negative (Negative); Blood, Urine Negative (Negative); Clarity Clear (Clear); Glucose, Urine (Dipstick) Normal (Negative); Ketone, Urine Negative (Negative); Leukocyte 25 Leu/uL (Negative); Nitrite Negative (Negative); Protein, Urine (Dipstick) Negative (Neg-Trace); RBC/HPF 0-3 HPF (0-3); Specific Gravity, Urine 1.023 (1.002-1.036); Squamous Epithelial 0-3 HPF (0-3); Urobilinogen Normal mg/dL (Less than 2)
[2022-03-05] MEDS ORDERED: Prevnar 13-Val Conj/PF 0.5 ML SYRINGE IM ONE (09:00)
== END 2022-03-04 12:00 | disposition home or self-care (01) | DRG 808 ==
LOC: ERS 19:35 → CCU 21:32
PROVIDERS: ADMIT Family Medicine; ATTEND Family Medicine
PROC: 30233N1 Transfusion of Nonautologous Red Blood Cells into Peripheral Vein, Percutaneous Approach (ICD-10-PCS; principal; 2022-03-02)
PROC: 8E0ZXY6 Isolation (ICD-10-PCS; 2022-03-02)
PROC: 6A551Z2 Pheresis of Platelets, Multiple (ICD-10-PCS; 2022-03-03)
DX: D61.810 Antineoplastic chemotherapy induced pancytopenia (principal); U07.1 COVID-19; C93.10 Chronic myelomonocytic leukemia not having achieved remission; Z94.81 Bone marrow transplant status; R04.0 Epistaxis; E78.5 Hyperlipidemia, unspecified; I10 Essential (primary) hypertension; T45.1X5A Adverse effect of antineoplastic and immunosuppressive drugs, initial encounter; Z86.16 Personal history of COVID-19; Z79.899 Other long term (current) drug therapy; Z90.710 Acquired absence of both cervix and uterus; Z90.49 Acquired absence of other specified parts of digestive tract; Z84.2 Family history of other diseases of the genitourinary system; Z87.440 Personal history of urinary (tract) infections
CPT/HCPCS: 36415; 36430; 80053; 81001; 85025; 85610; 85730; 86850; 86900; 86901; 93005; J7050; P9035; P9040; U0002

== ENCOUNTER 2022-03-07 10:52 | Day surgery (SDC) | payer BC ==
[2022-03-07] MEDS ORDERED: diphenhydrAMINE 25 MG CAP ONE (11:09)
[2022-03-07] MEDS ORDERED: Acetaminophen 500 MG TAB ONE (11:09)
[2022-03-07 12:36] VITALS: BP 168/78; TEMP 98.6
[2022-03-07 13:38] LABS: Hemoglobin 8.2 g/dL (12.0-16.0); Mean Corpuscular HGB CONC 33.4 g/dL (32.0-36.0); Mean Corpuscular Volume 92.7 fL (78.0-98.0); Mean Platelet Volume 11.3 fL (7.4-10.4); Platelet Count 59 thou/uL (130-400); RBC Distribution Width 18.2 % (11.5-14.5); Red Blood Cell (RBC) Count 2.64 mill/uL (4.20-5.40); White Blood Cell (WBC) Count 1.4 thou/uL (4.8-10.8)
[2022-03-07 13:57] LABS: Anisocytosis SLIGHT = 6-15 cells (100X) (0-5/hpf); Large Platelets SLIGHT; Lymphocytes 56 % (21-51); MDiff Complete? YES; Monocytes 8 % (0-10); Neutrophil 24 % (42-75); Nucleated RBC 5 % (0); Ovalocytes SLIGHT = 2-5 cells (100X) (0-1/hpf); Platelet Morphology Comment Appears Decreased; Polychromasia SLIGHT = 2-3 cells (100X) (0-2/hpf); Reactive Lymphocytes 10 % (0-10)
== END 2022-03-07 13:54 | disposition home or self-care (01) ==
LOC: ONC/OP 10:52
PROVIDERS: ATTEND Internal Medicine Hematology & Oncology
PROC: 30233R1 Transfusion of Nonautologous Platelets into Peripheral Vein, Percutaneous Approach (ICD-10-PCS; principal; 2022-03-07)
DX: D69.3 Immune thrombocytopenic purpura (principal); D69.6 Thrombocytopenia, unspecified; D46.Z Other myelodysplastic syndromes; C93.10 Chronic myelomonocytic leukemia not having achieved remission
CPT/HCPCS: 36430; 85025; 86850; 86900; 86901; P9035

== ENCOUNTER 2022-03-10 10:53 | Day surgery (SDC) | payer BC ==
[2022-03-10] MEDS ORDERED: Acetaminophen 500 MG TAB ONE (11:04)
[2022-03-10] MEDS ORDERED: diphenhydrAMINE 25 MG CAP ONE (11:04)
[2022-03-10] MEDS ORDERED: cloNIDine 0.1 MG TAB ONE (12:21)
[2022-03-10] MEDS ORDERED: cloNIDine 0.1 MG TAB PO SCH (12:45)
[2022-03-10 14:11] VITALS: BP 203/90; TEMP 97.3
== END 2022-03-10 14:47 | disposition home or self-care (01) ==
LOC: ONC/OP 10:53
PROVIDERS: ATTEND Internal Medicine Hematology & Oncology
PROC: 30233R1 Transfusion of Nonautologous Platelets into Peripheral Vein, Percutaneous Approach (ICD-10-PCS; principal; 2022-03-10)
DX: D69.6 Thrombocytopenia, unspecified (principal); D64.9 Anemia, unspecified
CPT/HCPCS: 36430; 80053; 82248; 83615; 83735; 84100; 84550; 85025; 86850; 86900; 86901; P9035

== ENCOUNTER 2022-03-21 09:27 | Day surgery (SDC) | payer BC ==
[2022-03-21] MEDS ORDERED: diphenhydrAMINE 25 MG CAP ONE (09:52)
[2022-03-21] MEDS ORDERED: Acetaminophen 500 MG TAB ONE (09:52)
[2022-03-21 12:18] VITALS: BP 165/77; TEMP 98
[2022-03-21 12:49] LABS: #Basophils 0.1 thou/uL (0.0-0.2); #Lymphocytes 1.3 thou/uL (1.20-3.40); #Monocytes 0.2 thou/uL (0.11-0.59); #Neutrophils 1.1 thou/uL (1.40-6.50); %Basophils 1.9 % (0.0-1.0); %Eosinophils 0.6 % (0.0-10.0); %Lymphocytes 47.8 % (21.0-51.0); %Monocytes 7.8 % (0.0-10.0); Hemoglobin 9.1 g/dL (12.0-16.0); Mean Corpuscular HGB CONC 32.5 g/dL (32.0-36.0); Mean Corpuscular Hemoglobin 32.2 pg (27.0-31.0); Mean Corpuscular Volume 99.3 fL (78.0-98.0); Mean Platelet Volume 11.7 fL (7.4-10.4); Platelet Count 75 thou/uL (130-400); RBC Distribution Width 19.7 % (11.5-14.5); Red Blood Cell (RBC) Count 2.83 mill/uL (4.20-5.40); White Blood Cell (WBC) Count 2.7 thou/uL (4.8-10.8)
== END 2022-03-21 13:01 | disposition home or self-care (01) ==
LOC: ONC/OP 09:27
PROVIDERS: ATTEND Internal Medicine Hematology & Oncology
PROC: 30233R1 Transfusion of Nonautologous Platelets into Peripheral Vein, Percutaneous Approach (ICD-10-PCS; principal; 2022-03-21)
DX: D69.6 Thrombocytopenia, unspecified (principal); D64.9 Anemia, unspecified
CPT/HCPCS: 36430; 85025; 86850; 86900; 86901; P9035

== ENCOUNTER 2022-03-31 10:38 | Day surgery (SDC) | payer BC ==
[2022-03-31] MEDS ORDERED: diphenhydrAMINE 25 MG CAP PO SCH (11:15)
[2022-03-31] MEDS ORDERED: Acetaminophen 500 MG TAB PO SCH (11:15)
[2022-03-31] MEDS ORDERED: Acetaminophen 500 MG TAB ONE (11:26)
[2022-03-31] MEDS ORDERED: diphenhydrAMINE 25 MG CAP ONE (11:27)
[2022-03-31 14:32] LABS: #Lymphocytes 1.2 thou/uL (1.20-3.40); #Monocytes 0.3 thou/uL (0.11-0.59); #Neutrophils 0.9 thou/uL (1.40-6.50); %Basophils 0.1 % (0.0-1.0); %Lymphocytes 49.3 % (21.0-51.0); %Monocytes 13.4 % (0.0-10.0); Hemoglobin 9.1 g/dL (12.0-16.0); Mean Corpuscular HGB CONC 32.6 g/dL (32.0-36.0); Mean Corpuscular Hemoglobin 32.4 pg (27.0-31.0); Mean Corpuscular Volume 99.2 fL (78.0-98.0); Mean Platelet Volume 9.7 fL (7.4-10.4); Platelet Count 37 thou/uL (130-400); RBC Distribution Width 18.8 % (11.5-14.5); White Blood Cell (WBC) Count 2.4 thou/uL (4.8-10.8)
[2022-03-31 14:45] VITALS: BP 161/72; TEMP 98.2
== END 2022-03-31 14:45 | disposition home or self-care (01) ==
LOC: ONC/OP 10:38
PROVIDERS: ATTEND Internal Medicine Hematology & Oncology
PROC: 30233R1 Transfusion of Nonautologous Platelets into Peripheral Vein, Percutaneous Approach (ICD-10-PCS; principal; 2022-03-31)
DX: D69.6 Thrombocytopenia, unspecified (principal); D64.9 Anemia, unspecified; D69.3 Immune thrombocytopenic purpura; C93.10 Chronic myelomonocytic leukemia not having achieved remission
CPT/HCPCS: 36430; 80053; 82248; 83615; 84100; 84550; 85025; 86850; 86900; 86901; P9035

== ENCOUNTER 2022-04-03 11:03 | Day surgery (SDC) | payer BC ==
[2022-04-03] MEDS ORDERED: diphenhydrAMINE 25 MG CAP ONE (12:13)
[2022-04-03] MEDS ORDERED: Acetaminophen 500 MG TAB ONE (12:13)
[2022-04-03] MEDS ORDERED: diphenhydrAMINE 25 MG CAP PO SCH (12:15)
[2022-04-03] MEDS ORDERED: Acetaminophen 500 MG TAB PO SCH (12:15)
[2022-04-03 14:25] VITALS: TEMP 98.6
[2022-04-03 14:35] VITALS: BP 173/77
[2022-04-03 15:34] LABS: Hemoglobin 9.2 g/dL (12.0-16.0); Mean Platelet Volume 5.5 fL (7.4-10.4); Platelet Count 54 thou/uL (130-400); Red Blood Cell (RBC) Count 2.78 mill/uL (4.20-5.40)
[2022-04-03 16:16] LABS: Band 1 % (5-11); Hypochromia SLIGHT = 6-15 cells (100X) (0-5/hpf); Lymphocytes 51 % (21-51); MDiff Complete? YES; Macrocytosis SLIGHT = 6-15 cells (100X) (0-5/hpf); Monocytes 8 % (0-10); Neutrophil 40 % (42-75); Platelet Morphology Comment Appears Decreased
== END 2022-04-03 15:15 | disposition home or self-care (01) ==
LOC: ONC/OP 11:03
PROVIDERS: ATTEND Internal Medicine Hematology & Oncology
PROC: 30233R1 Transfusion of Nonautologous Platelets into Peripheral Vein, Percutaneous Approach (ICD-10-PCS; principal; 2022-04-03)
DX: D69.6 Thrombocytopenia, unspecified (principal); D64.9 Anemia, unspecified
CPT/HCPCS: 36430; 85025; 86850; 86900; 86901; P9035

== ENCOUNTER 2022-04-18 09:56 | Day surgery (SDC) | payer BC ==
[~2022-04-18 09:56] MED LIST changes: +Acetaminophen 500 MG TAB PO SCH; -ISOVUE-370 76%-LOCM 1 ML ONE; +diphenhydrAMINE 25 MG CAP PO SCH
[2022-04-18] MEDS ORDERED: Acetaminophen 500 MG TAB ONE (10:19)
[2022-04-18] MEDS ORDERED: diphenhydrAMINE 25 MG CAP ONE (10:19)
[2022-04-18 12:46] VITALS: BP 196/88; TEMP 98.5
[2022-04-18 13:54] LABS: Hemoglobin 9.5 g/dL (12.0-16.0); Mean Corpuscular Hemoglobin 33.3 pg (27.0-31.0); Mean Platelet Volume 5.8 fL (7.4-10.4); Platelet Count 57 thou/uL (130-400); RBC Distribution Width 18.9 % (11.5-14.5); Red Blood Cell (RBC) Count 2.85 mill/uL (4.20-5.40); White Blood Cell (WBC) Count 1.5 thou/uL (4.8-10.8)
[2022-04-18 14:20] LABS: Anisocytosis SLIGHT = 6-15 cells (100X) (0-5/hpf); Lymphocytes 55 % (21-51); MDiff Complete? YES; Monocytes 3 % (0-10); Neutrophil 41 % (42-75); Platelet Morphology Comment Appears Decreased; Poikilocytosis SLIGHT = 6-15 cells (100X) (0-5/hpf); Reactive Lymphocytes 1 % (0-10)
== END 2022-04-18 12:46 | disposition home or self-care (01) ==
LOC: ONC/OP 09:56
PROVIDERS: ATTEND Internal Medicine Hematology & Oncology
PROC: 30233R1 Transfusion of Nonautologous Platelets into Peripheral Vein, Percutaneous Approach (ICD-10-PCS; principal; 2022-04-18)
DX: D69.6 Thrombocytopenia, unspecified (principal); D64.9 Anemia, unspecified
CPT/HCPCS: 36430; 85025; 86850; 86900; 86901; P9035

== ENCOUNTER 2022-04-25 16:27 | Inpatient (IN) | payer BC ==
[2022-04-25] MEDS ORDERED: Acetaminophen 500 MG TAB ONE (16:58)
[2022-04-25] MEDS ORDERED: Cefepime 2 GM VIAL ONE (16:58)
[2022-04-25 17:18] LABS: Hemoglobin 8.5 g/dL (12.0-16.0); Mean Corpuscular HGB CONC 33.7 g/dL (32.0-36.0); Mean Corpuscular Hemoglobin 33.1 pg (27.0-31.0); Mean Corpuscular Volume 98.1 fl (78.0-98.0); Platelet Count 30 10x3/uL (130-400); RBC Distribution Width 17.3 % (11.5-14.5); Red Blood Cell (RBC) Count 2.55 mill/uL (4.20-5.40); White Blood Cell (WBC) Count 1.4 10x3/uL (4.8-10.8)
[2022-04-25 17:35] LABS: ALT (SGPT) 31 U/L (8-55); AST (SGOT) 23 U/L (5-34); Albumin 3.9 g/dL (3.4-4.8); Alkaline Phosphatase 62 U/L (40-110); Anion Gap 10 mmol/L (10-20); BUN (Urea Nitrogen) 16 mg/dL (9.8-20.1); Bilirubin, Total 2.4 mg/dL (0.2-1.2); Calc. Creatinine Clearance 0 mL/min (70-130); Calcium 8.7 mg/dL (7.8-10.44); Carbon Dioxide 22 mmol/L (23-31); Chloride 105 mmol/L (98-107); Estimated GFR 93; Globulin 3.1 g/dL (2.4-3.5); Glucose 116 mg/dL (80-115); Potassium 3.6 mmol/L (3.5-5.1); Sodium 133 mmol/L (136-145)
[2022-04-25 17:35] LABS: Anisocytosis SLIGHT = 6-15 cells (100X) (0-5/hpf); Band 8 % (5-11); Differential Comment Blast-Like Cell(s); Lymphocytes 57 % (21-51); MDiff Complete? YES; Monocytes 5 % (0-10); Neutrophil 26 % (42-75); Ovalocytes SLIGHT = 2-5 cells (100X) (0-1/hpf); Platelet Morphology Comment Appears Decreased; Polychromasia SLIGHT = 2-3 cells (100X) (0-2/hpf); Reactive Lymphocytes 2 % (0-10); Schistocytes SLIGHT = 2-5 cells (100X) (0-1/hpf)
[2022-04-25 17:50] LABS: Bilirubin Negative (Negative); Blood, Urine Negative (Negative); Glucose, Urine (Dipstick) Negative (Negative); Ketone, Urine Negative (Negative); Leukocyte Negative (Negative); Nitrite Negative (Negative); Protein, Urine (Dipstick) 30 mg/dL (Neg-Trace); Urobilinogen 0.2 mg/dL (Less than 2); pH, Urine 8.5 (5.0-9.0)
[2022-04-25 18:16] LABS: Clarity Clear (Clear)
[2022-04-25 18:17] LABS: RBC/HPF 0-3 HPF (0-3); Squamous Epithelial 0-3 HPF (0-3); WBC/HPF 0-3 HPF (0-3)
[2022-04-25] MEDS ORDERED: Vancomycin 1 GM/200 ML (FROZEN) BAG ONE (18:25)
[2022-04-25] MEDS ORDERED: Metoclopramide HCl 10 MG/2 ML VIAL IVP PRN (18:53)
[2022-04-25] MEDS ORDERED: Bisacodyl 5 MG TAB PO PRN (18:53)
[2022-04-25] MEDS ORDERED: Zolpidem Tartrate 5 MG TAB PO PRN (18:53)
[2022-04-25] MEDS ORDERED: Ondansetron PF 4 MG/2 ML Vial IVP PRN (18:53)
[2022-04-25] MEDS ORDERED: Sodium Chloride 0.9% 1,000 ML IV SCH (19:00)
[2022-04-25 19:36] LABS: SARS-CoV-2 NAA Rapid Test Not Detected (NotDetected)
[2022-04-25 19:59] VITALS: BMI 27.7
[2022-04-25] MEDS ORDERED: Prochlorperazine Maleate 5 MG TAB PO PRN (20:59)
[2022-04-25] MEDS ORDERED: Vancomycin 1 GM in Premix Bag 1 BAG IVPB SCH (21:00)
[2022-04-25] MEDS: Ursodiol 300 MG CAP PO SCH (21:40)
[2022-04-25] MEDS: valACYclovir 500 MG TAB PO SCH (21:40)
[2022-04-25] MEDS: Acetaminophen 325 MG TAB PO PRN (23:07)
[2022-04-26] MEDS: Cefepime 2 GM in Sodium Chloride 0.9% 100 ML IVPB SCH ×3 (01:49→16:14)
[2022-04-26] MEDS: Acetaminophen 325 MG TAB PO PRN ×4 (04:18→21:03)
[2022-04-26] MEDS: VANCOMYCIN 1.25 GM/250 ML BAG 1.25 GM in Premix Bag 1 BAG IVPB SCH ×2 (05:53→17:58)
[2022-04-26] MEDS: valACYclovir 500 MG TAB PO SCH ×2 (09:02→21:04)
[2022-04-26] MEDS: Ursodiol 300 MG CAP PO SCH ×3 (09:02→21:04)
[2022-04-27] MEDS: Cefepime 2 GM in Sodium Chloride 0.9% 100 ML IVPB SCH ×3 (01:09→16:48)
[2022-04-27] MEDS: Acetaminophen 325 MG TAB PO PRN ×3 (01:15→18:33)
[2022-04-27 05:51] LABS: Vancomycin, Trough 8.2 ug/mL
[2022-04-27] MEDS: VANCOMYCIN 1.25 GM/250 ML BAG 1.25 GM in Premix Bag 1 BAG IVPB SCH ×4 (06:04→21:38)
[2022-04-27] MEDS: valACYclovir 500 MG TAB PO SCH ×2 (08:19→21:09)
[2022-04-27] MEDS: Ursodiol 300 MG CAP PO SCH ×3 (08:30→21:09)
[2022-04-27] MEDS ORDERED: Iopamidol 370 76% 100 ML VIAL ONE (09:47)
[2022-04-27 17:03] LABS: Hemoglobin 7.7 g/dL (12.0-16.0); Mean Corpuscular HGB CONC 33.3 g/dL (32.0-36.0); Mean Corpuscular Hemoglobin 32.9 pg (27.0-31.0); Mean Corpuscular Volume 98.8 fl (78.0-98.0); Mean Platelet Volume 17.2 fL (7.4-10.4); Platelet Count 17 10x3/uL (130-400); RBC Distribution Width 17.1 % (11.5-14.5); Red Blood Cell (RBC) Count 2.34 mill/uL (4.20-5.40); White Blood Cell (WBC) Count 1.2 10x3/uL (4.8-10.8)
[2022-04-27 17:19] LABS: ALT (SGPT) 35 U/L (8-55); AST (SGOT) 22 U/L (5-34); Albumin 3.4 g/dL (3.4-4.8); Alkaline Phosphatase 68 U/L (40-110); Anion Gap 12 mmol/L (10-20); BUN (Urea Nitrogen) 6 mg/dL (9.8-20.1); Bilirubin, Total 0.9 mg/dL (0.2-1.2); Calc. Creatinine Clearance 103 mL/min (70-130); Calcium 8.3 mg/dL (7.8-10.44); Carbon Dioxide 23 mmol/L (23-31); Chloride 102 mmol/L (98-107); Estimated GFR 98; Globulin 3.2 g/dL (2.4-3.5); Glucose 91 mg/dL (80-115); Protein, Total 6.6 g/dL (5.8-8.1); Sodium 135 mmol/L (136-145)
[2022-04-27 17:21] LABS: Anisocytosis SLIGHT = 6-15 cells (100X) (0-5/hpf); Band 4 % (5-11); Eosinophils 1 % (0-10); Lymphocytes 73 % (21-51); MDiff Complete? YES; Monocytes 2 % (0-10); Neutrophil 16 % (42-75); Nucleated RBC 3 % (0); Ovalocytes SLIGHT = 2-5 cells (100X) (0-1/hpf); Platelet Morphology Comment Appears Decreased; Polychromasia SLIGHT = 2-3 cells (100X) (0-2/hpf); Reactive Lymphocytes 3 % (0-10); Schistocytes SLIGHT = 2-5 cells (100X) (0-1/hpf); Tear Drops SLIGHT = 2-5 cells (100X) (0-1/hpf)
[2022-04-27 17:42] LABS: Potassium 2.3 mmol/L (3.5-5.1)
[2022-04-27] MEDS ORDERED: Electrolyte Replacement Protocol FS SCH (17:45)
[2022-04-27] MEDS ORDERED: Potassium Chloride 40 MEQ in Premix Bag 1 BAG IVPB SCH (18:00)
[2022-04-27] MEDS: Potassium Chloride 40 MEQ in Sodium Chloride 0.9% 250 ML 250 ML IVPB SCH (18:34)
[2022-04-27] MEDS: NS 0.9% w/ 40 MEQ KCL 1,000 ML IV SCH (18:34)
[2022-04-27] MEDS ORDERED: Amlodipine 5 MG TAB PO SCH (18:45)
[2022-04-27 19:48] LABS: Legionella Urinary Ag Negative (Negative); Strep pneumo Urine Ag NEGATIVE (NEGATIVE)
[2022-04-27] MEDS ORDERED: AFRIN NASAL MIST 15 ML BOT NS SCH (21:00)
[2022-04-27] MEDS: Atorvastatin Calcium 10 MG TAB PO SCH (21:09)
[2022-04-27] MEDS: Metoprolol Tartrate 50 MG TAB PO SCH (21:09)
[2022-04-27] MEDS: Posaconazole 300 MG PO SCH (21:10)
[2022-04-27] MEDS ORDERED: Oxymetazoline HCl 0.05% (30 ML BOT) NS SCH (21:45)
[2022-04-27] MEDS ORDERED: Magnesium 2 GM/50 ML(in water) 2 GM in Premix Bag 1 BAG IVPB SCH (23:59)
[2022-04-28] MEDS: Cefepime 2 GM in Sodium Chloride 0.9% 100 ML IVPB SCH ×3 (01:03→18:29)
[2022-04-28] MEDS: Potassium Chloride 40 MEQ in Sodium Chloride 0.9% 250 ML 250 ML IVPB SCH (01:03)
[2022-04-28] MEDS: Acetaminophen 325 MG TAB PO PRN ×2 (04:13→20:11)
[2022-04-28 05:24] LABS: Vancomycin, Trough 15.5 ug/mL
[2022-04-28 05:28] LABS: Hemoglobin 7.3 g/dL (12.0-16.0); Mean Corpuscular HGB CONC 33.7 g/dL (32.0-36.0); Mean Corpuscular Hemoglobin 33.2 pg (27.0-31.0); Mean Corpuscular Volume 98.6 fl (78.0-98.0); Mean Platelet Volume 17.6 fL (7.4-10.4); Platelet Count 12 10x3/uL (130-400); RBC Distribution Width 16.7 % (11.5-14.5); Red Blood Cell (RBC) Count 2.18 mill/uL (4.20-5.40); White Blood Cell (WBC) Count 1.3 10x3/uL (4.8-10.8)
[2022-04-28 05:33] LABS: Anion Gap 13 mmol/L (10-20); BUN (Urea Nitrogen) 7 mg/dL (9.8-20.1); Calc. Creatinine Clearance 121 mL/min (70-130); Calcium 7.8 mg/dL (7.8-10.44); Carbon Dioxide 23 mmol/L (23-31); Chloride 104 mmol/L (98-107); Estimated GFR 102; Glucose 109 mg/dL (80-115); Potassium 2.9 mmol/L (3.5-5.1); Sodium 137 mmol/L (136-145)
[2022-04-28] MEDS: VANCOMYCIN 1.25 GM/250 ML BAG 1.25 GM in Premix Bag 1 BAG IVPB SCH ×3 (05:59→21:59)
[2022-04-28] MEDS: Potassium Chloride 20 MEQ TAB PO SCH ×2 (05:59→10:05)
[2022-04-28] MEDS: NS 0.9% w/ 40 MEQ KCL 1,000 ML IV SCH ×2 (06:44→22:00)
[2022-04-28] MEDS ORDERED: Amlodipine 5 MG TAB PO SCH (09:00)
[2022-04-28] MEDS ORDERED: Non-Formulary Item 1 EACH (Posaconazole 100 MG Tab) PO SCH (09:00)
[2022-04-28 09:28] LABS: Band 4 % (5-11); Lymphocytes 76 % (21-51); MDiff Complete? YES; Monocytes 12 % (0-10); Neutrophil 8 % (42-75); Nucleated RBC 3 % (0); Platelet Morphology Comment Appears Decreased; RBC Morphology Normal
[2022-04-28] MEDS: Metoprolol Tartrate 50 MG TAB PO SCH ×2 (09:45→20:12)
[2022-04-28] MEDS: Oxymetazoline HCl 0.05% (30 ML BOT) NS SCH ×2 (09:46→21:58)
[2022-04-28] MEDS: valACYclovir 500 MG TAB PO SCH ×2 (09:46→20:12)
[2022-04-28] MEDS: Ursodiol 300 MG CAP PO SCH ×3 (10:00→20:12)
[2022-04-28] MEDS: Atovaquone 750 MG/5 ML UDCUP PO SCH (10:03)
[2022-04-28] MEDS: Posaconazole 300 MG PO SCH (20:10)
[2022-04-28] MEDS: Atorvastatin Calcium 10 MG TAB PO SCH (20:11)
[2022-04-29] MEDS: Cefepime 2 GM in Sodium Chloride 0.9% 100 ML IVPB SCH ×4 (01:06→23:54)
[2022-04-29 05:47] LABS: Hemoglobin 7.4 g/dL (12.0-16.0); Mean Corpuscular HGB CONC 32.8 g/dL (32.0-36.0); Mean Corpuscular Hemoglobin 33.1 pg (27.0-31.0); Mean Platelet Volume 17.9 fL (7.4-10.4); Platelet Count 9 10x3/uL (130-400); Red Blood Cell (RBC) Count 2.25 mill/uL (4.20-5.40); White Blood Cell (WBC) Count 1.5 10x3/uL (4.8-10.8)
[2022-04-29 06:29] LABS: Band 12 % (5-11); Hypochromia SLIGHT = 6-15 cells (100X) (0-5/hpf); Lymphocytes 40 % (21-51); MDiff Complete? YES; Macrocytosis SLIGHT = 6-15 cells (100X) (0-5/hpf); Monocytes 16 % (0-10); Neutrophil 32 % (42-75); Nucleated RBC 2 % (0); Platelet Morphology Comment Appears Decreased
[2022-04-29 06:37] LABS: Anion Gap 12 mmol/L (10-20); BUN (Urea Nitrogen) 7 mg/dL (9.8-20.1); Calc. Creatinine Clearance 126 mL/min (70-130); Calcium 8.2 mg/dL (7.8-10.44); Carbon Dioxide 23 mmol/L (23-31); Chloride 107 mmol/L (98-107); Estimated GFR 103; Glucose 100 mg/dL (80-115); Potassium 2.8 mmol/L (3.5-5.1); Sodium 139 mmol/L (136-145); Vancomycin, Trough 19.4 ug/mL
[2022-04-29] MEDS: VANCOMYCIN 1.25 GM/250 ML BAG 1.25 GM in Premix Bag 1 BAG IVPB SCH ×3 (08:28→21:20)
[2022-04-29] MEDS: valACYclovir 500 MG TAB PO SCH ×2 (08:35→19:55)
[2022-04-29] MEDS: Amlodipine 5 MG TAB PO SCH (08:35)
[2022-04-29] MEDS: Ursodiol 300 MG CAP PO SCH ×3 (08:35→19:55)
[2022-04-29] MEDS: Metoprolol Tartrate 50 MG TAB PO SCH ×2 (08:35→19:55)
[2022-04-29] MEDS: Atovaquone 750 MG/5 ML UDCUP PO SCH (09:45)
[2022-04-29] MEDS: Potassium Chloride 20 MEQ TAB PO SCH ×2 (12:36→16:48)
[2022-04-29] MEDS: Posaconazole 300 MG PO SCH (19:55)
[2022-04-29] MEDS: Atorvastatin Calcium 10 MG TAB PO SCH (19:55)
[2022-04-29 20:45] LABS: Potassium 3.1 mmol/L (3.5-5.1)
[2022-04-29] MEDS: Oxymetazoline HCl 0.05% (30 ML BOT) NS SCH (21:00)
[2022-04-29] MEDS ORDERED: Potassium Chloride 20 MEQ TAB PO SCH (23:45)
[2022-04-30] MEDS: VANCOMYCIN 1.25 GM/250 ML BAG 1.25 GM in Premix Bag 1 BAG IVPB SCH ×2 (04:46→13:11)
[2022-04-30 05:56] LABS: Anion Gap 10 mmol/L (10-20); BUN (Urea Nitrogen) 8 mg/dL (9.8-20.1); Calc. Creatinine Clearance 117 mL/min (70-130); Calcium 8.4 mg/dL (7.8-10.44); Carbon Dioxide 27 mmol/L (23-31); Chloride 104 mmol/L (98-107); Estimated GFR 101; Glucose 96 mg/dL (80-115); Magnesium 1.7 mg/dL (1.6-2.6); Phosphorus 3.1 mg/dL (2.3-4.7); Potassium 2.8 mmol/L (3.5-5.1); Sodium 138 mmol/L (136-145)
[2022-04-30 06:05] LABS: Hemoglobin 8.5 g/dL (12.0-16.0); Mean Corpuscular HGB CONC 33.5 g/dL (32.0-36.0); Mean Corpuscular Hemoglobin 33.7 pg (27.0-31.0); Mean Platelet Volume 11.7 fL (7.4-10.4); Platelet Count 71 10x3/uL (130-400); RBC Distribution Width 16.9 % (11.5-14.5); Red Blood Cell (RBC) Count 2.53 mill/uL (4.20-5.40); White Blood Cell (WBC) Count 2.1 10x3/uL (4.8-10.8)
[2022-04-30] MEDS: Cefepime 2 GM in Sodium Chloride 0.9% 100 ML IVPB SCH (07:05)
[2022-04-30] MEDS ORDERED: Magnesium 2 GM/50 ML(in water) 2 GM in Premix Bag 1 BAG IVPB SCH (08:00)
[2022-04-30] MEDS: Potassium Chloride 20 MEQ TAB PO SCH ×2 (09:23→12:46)
[2022-04-30] MEDS: Amlodipine 5 MG TAB PO SCH (09:23)
[2022-04-30] MEDS: Atovaquone 750 MG/5 ML UDCUP PO SCH (09:24)
[2022-04-30] MEDS: valACYclovir 500 MG TAB PO SCH ×2 (09:24→19:54)
[2022-04-30] MEDS: Metoprolol Tartrate 50 MG TAB PO SCH ×2 (09:24→19:54)
[2022-04-30] MEDS: Ursodiol 300 MG CAP PO SCH ×3 (09:24→19:54)
[2022-04-30] MEDS: Oxymetazoline HCl 0.05% (30 ML BOT) NS SCH (09:25)
[2022-04-30 09:48] LABS: Anisocytosis SLIGHT = 6-15 cells (100X) (0-5/hpf); Band 7 % (5-11); Lymphocytes 47 % (21-51); MDiff Complete? YES; Metamyelocyte 1 % (0-0); Monocytes 9 % (0-10); Myelocyte 2 % (0-0); Neutrophil 34 % (42-75); Nucleated RBC 3 % (0); Platelet Morphology Comment Appears Decreased; Polychromasia SLIGHT = 2-3 cells (100X) (0-2/hpf); Schistocytes SLIGHT = 2-5 cells (100X) (0-1/hpf)
[2022-04-30] MEDS ORDERED: FLU VACC QS2022-23(65YR UP)/PF 240 MCG/0.7 ML SYRINGE IM ONE (11:00)
[2022-04-30 17:14] LABS: Potassium 3.6 mmol/L (3.5-5.1)
[2022-04-30] MEDS: Ciprofloxacin 500 MG TAB PO SCH (19:53)
[2022-04-30] MEDS: Atorvastatin Calcium 10 MG TAB PO SCH (19:53)
[2022-04-30] MEDS: Linezolid 600 MG TAB PO SCH (19:54)
[2022-04-30] MEDS: Posaconazole 300 MG PO SCH (19:55)
[2022-05-01 05:37] LABS: Anion Gap 12 mmol/L (10-20); BUN (Urea Nitrogen) 10 mg/dL (9.8-20.1); Calc. Creatinine Clearance 113 mL/min (70-130); Calcium 8.7 mg/dL (7.8-10.44); Carbon Dioxide 26 mmol/L (23-31); Chloride 103 mmol/L (98-107); Estimated GFR 100; Glucose 105 mg/dL (80-115); Sodium 138 mmol/L (136-145)
[2022-05-01 05:46] LABS: Hemoglobin 8.3 g/dL (12.0-16.0); Mean Corpuscular HGB CONC 34.8 g/dL (32.0-36.0); Mean Corpuscular Hemoglobin 34.3 pg (27.0-31.0); Mean Corpuscular Volume 98.7 fl (78.0-98.0); Mean Platelet Volume 6.5 fL (7.4-10.4); Platelet Count 48 10x3/uL (130-400); RBC Distribution Width 17.5 % (11.5-14.5); Red Blood Cell (RBC) Count 2.42 mill/uL (4.20-5.40); White Blood Cell (WBC) Count 2.9 10x3/uL (4.8-10.8)
[2022-05-01] MEDS: Ciprofloxacin 500 MG TAB PO SCH ×2 (05:46→20:13)
[2022-05-01] MEDS ORDERED: Potassium Chloride 20 MEQ TAB PO SCH (08:00)
[2022-05-01] MEDS ORDERED: Potassium Bicarbonate/Cit Ac 20 MEQ TAB PO SCH (08:45)
[2022-05-01] MEDS: Atovaquone 750 MG/5 ML UDCUP PO SCH (09:07)
[2022-05-01] MEDS: Linezolid 600 MG TAB PO SCH ×2 (09:08→20:14)
[2022-05-01] MEDS: Amlodipine 5 MG TAB PO SCH (09:08)
[2022-05-01] MEDS: Metoprolol Tartrate 50 MG TAB PO SCH ×2 (09:08→20:14)
[2022-05-01] MEDS: valACYclovir 500 MG TAB PO SCH ×2 (09:08→20:14)
[2022-05-01] MEDS: Ursodiol 300 MG CAP PO SCH ×3 (09:08→20:15)
[2022-05-01 13:13] LABS: CMV DNA-PCR Test Negative (Negative)
[2022-05-01] MEDS: Atorvastatin Calcium 10 MG TAB PO SCH (20:14)
[2022-05-01] MEDS: Posaconazole 300 MG PO SCH (20:15)
[2022-05-02 05:30] LABS: Anion Gap 10 mmol/L (10-20); BUN (Urea Nitrogen) 13 mg/dL (9.8-20.1); Calc. Creatinine Clearance 109 mL/min (70-130); Calcium 8.5 mg/dL (7.8-10.44); Carbon Dioxide 28 mmol/L (23-31); Chloride 104 mmol/L (98-107); Estimated GFR 99; Glucose 110 mg/dL (80-115); Potassium 3.4 mmol/L (3.5-5.1); Sodium 139 mmol/L (136-145)
[2022-05-02] MEDS: Ciprofloxacin 500 MG TAB PO SCH (06:03)
[2022-05-02] MEDS ORDERED: Lorazepam 0.5 MG TAB PO SCH (08:00)
[2022-05-02] MEDS ORDERED: Potassium Chloride 20 MEQ in Premix Bag 1 BAG IVPB SCH (08:00)
[2022-05-02] MEDS: Atovaquone 750 MG/5 ML UDCUP PO SCH (08:20)
[2022-05-02] MEDS: valACYclovir 500 MG TAB PO SCH (08:21)
[2022-05-02] MEDS: Metoprolol Tartrate 50 MG TAB PO SCH (08:21)
[2022-05-02] MEDS: Linezolid 600 MG TAB PO SCH (08:21)
[2022-05-02] MEDS: Amlodipine 5 MG TAB PO SCH (08:21)
[2022-05-02] MEDS: Ursodiol 300 MG CAP PO SCH ×2 (08:21→14:10)
[2022-05-02 08:33] LABS: INR-International Normal Ratio 1.1; Prothrombin Time 14.8 sec (12.0-14.7)
[2022-05-02 08:34] LABS: PTT 30.1 sec (22.9-36.1)
[2022-05-02] MEDS ORDERED: Potassium Chloride 20 MEQ TAB PO SCH (09:00)
[2022-05-02 09:05] VITALS: BP 152/80
[2022-05-02] MEDS ORDERED: Midazolam HCl 2 mg/2 ml Vial ONE (12:26)
[2022-05-02] MEDS ORDERED: FENTANYL 50 MCG/ML 1 ML VIAL ONE (12:26)
[2022-05-02] MEDS ORDERED: Sodium Bicarbonate 2.5 MEQ/5 ML VIAL ONE (12:26)
[2022-05-02] MEDS ORDERED: Lidocaine 2% PF 5 ML VIAL ONE (12:26)
[2022-05-02] MEDS ORDERED: Lorazepam 1 MG TAB ONE (12:52)
[2022-05-02] MEDS ORDERED: Floranex 1 GM Packet PO SCH (14:15)
[2022-05-02 16:34] LABS: Potassium 3.8 mmol/L (3.5-5.1)
[2022-05-02 16:46] VITALS: TEMP 98.5
[2022-05-03] MEDS ORDERED: Floranex 1 GM Packet PO SCH (09:00)
== END 2022-05-02 17:47 | disposition home or self-care (01) | DRG 808 ==
LOC: ERS 16:27 → MSONC 18:14 → OBSVTOIN 04-27 16:21
PROVIDERS: ADMIT Internal Medicine Nephrology; ATTEND Internal Medicine
PROC: 30233R1 Transfusion of Nonautologous Platelets into Peripheral Vein, Percutaneous Approach (ICD-10-PCS; principal; 2022-04-29)
PROC: 07DR3ZX Extraction of Iliac Bone Marrow, Percutaneous Approach, Diagnostic (ICD-10-PCS; 2022-05-02)
DX: D61.810 Antineoplastic chemotherapy induced pancytopenia (principal); J15.9 Unspecified bacterial pneumonia; Z94.84 Stem cells transplant status; E87.1 Hypo-osmolality and hyponatremia; C93.10 Chronic myelomonocytic leukemia not having achieved remission; Z20.822 Contact with and (suspected) exposure to COVID-19; Z23 Encounter for immunization; D70.9 Neutropenia, unspecified; R50.81 Fever presenting with conditions classified elsewhere; E78.00 Pure hypercholesterolemia, unspecified; I10 Essential (primary) hypertension; T45.1X5A Adverse effect of antineoplastic and immunosuppressive drugs, initial encounter; E87.6 Hypokalemia; Z90.710 Acquired absence of both cervix and uterus; Z79.899 Other long term (current) drug therapy; E83.42 Hypomagnesemia
CPT/HCPCS: 36415; 36430; 38222; 71045; 71046; 71260; 77002; 80048; 80053; 80202; 81003; 81015; 83605; 83735; 84100; 85025; 85027; 85610; 85730; 86850; 86900; 86901; 87040; 87086; 87449; 87497; 87633; 87899; 88184; 88237; 90471; 90662; 96365; 96366; 96375; 96376; G0008; G0378; J0692; J2001; J2250; J3010; J3370; J3370-JW; J3475; J3480; J3490; J7050; P9035; P9040; Q9967

== ENCOUNTER 2022-05-09 13:12 | Emergency (ER) | payer BC ==
[2022-05-09 14:14] LABS: #Lymphocytes 1.3 thou/uL (1.20-3.40); #Monocytes 0.2 thou/uL (0.11-0.59); #Neutrophils 2.2 thou/uL (1.40-6.50); %Basophils 0.1 % (0.0-1.0); %Eosinophils 0.5 % (0.0-10.0); %Lymphocytes 34.2 % (21.0-51.0); %Monocytes 5.8 % (0.0-10.0); %Neutrophils 59.4 % (42.0-75.0); Hemoglobin 7.7 g/dL (12.0-16.0); Mean Corpuscular HGB CONC 33.6 g/dL (32.0-36.0); Mean Corpuscular Hemoglobin 34.8 pg (27.0-31.0); Platelet Count 3 10x3/uL (130-400); RBC Distribution Width 16.7 % (11.5-14.5); Red Blood Cell (RBC) Count 2.22 mill/uL (4.20-5.40); White Blood Cell (WBC) Count 3.6 10x3/uL (4.8-10.8)
[2022-05-09 14:36] LABS: ALT (SGPT) 14 U/L (8-55); AST (SGOT) 14 U/L (5-34); Albumin 3.6 g/dL (3.4-4.8); Alkaline Phosphatase 69 U/L (40-110); Anion Gap 13 mmol/L (10-20); BUN (Urea Nitrogen) 14 mg/dL (9.8-20.1); Bilirubin, Total 0.6 mg/dL (0.2-1.2); Calc. Creatinine Clearance 0 mL/min (70-130); Calcium 8.7 mg/dL (7.8-10.44); Carbon Dioxide 21 mmol/L (23-31); Chloride 108 mmol/L (98-107); Estimated GFR 97; Globulin 3.2 g/dL (2.4-3.5); Glucose 115 mg/dL (80-115); Potassium 4.2 mmol/L (3.5-5.1); Protein, Total 6.8 g/dL (5.8-8.1); Sodium 138 mmol/L (136-145)
== END 2022-05-09 18:25 | disposition home or self-care (01) ==
LOC: ERS 13:12
DX: D69.6 Thrombocytopenia, unspecified (principal); E78.00 Pure hypercholesterolemia, unspecified; I10 Essential (primary) hypertension; Z79.899 Other long term (current) drug therapy
CPT/HCPCS: 36415; 36430; 80053; 85025; 86850; 86900; 86901; 99284; P9035

== ENCOUNTER 2022-05-15 09:39 | Day surgery (SDC) | payer BC ==
[2022-05-15] MEDS ORDERED: Acetaminophen 500 MG TAB ONE (10:44)
[2022-05-15 12:09] VITALS: BP 121/61; TEMP 97.6
[2022-05-15 13:16] LABS: #Lymphocytes 1.4 thou/uL (1.20-3.40); #Monocytes 0.5 thou/uL (0.11-0.59); #Neutrophils 1.2 thou/uL (1.40-6.50); %Basophils 0.4 % (0.0-1.0); %Eosinophils 0.6 % (0.0-10.0); %Monocytes 14.5 % (0.0-10.0); %Neutrophils 39.4 % (42.0-75.0); Hemoglobin 9.4 g/dL (12.0-16.0); Mean Corpuscular HGB CONC 33.2 g/dL (32.0-36.0); Mean Corpuscular Hemoglobin 31.8 pg (27.0-31.0); Mean Corpuscular Volume 95.8 fl (78.0-98.0); Mean Platelet Volume 6.8 fL (7.4-10.4); Platelet Count 46 10x3/uL (130-400); RBC Distribution Width 19.4 % (11.5-14.5); Red Blood Cell (RBC) Count 2.95 mill/uL (4.20-5.40); White Blood Cell (WBC) Count 3.2 10x3/uL (4.8-10.8)
== END 2022-05-15 12:51 | disposition home or self-care (01) ==
LOC: ONC/OP 09:39
PROVIDERS: ATTEND Internal Medicine Hematology & Oncology
PROC: 30233R1 Transfusion of Nonautologous Platelets into Peripheral Vein, Percutaneous Approach (ICD-10-PCS; principal; 2022-05-15)
DX: D69.6 Thrombocytopenia, unspecified (principal); D64.9 Anemia, unspecified
CPT/HCPCS: 36430; 85025; 86850; 86900; 86901; P9035

== ENCOUNTER 2022-05-26 11:18 | Day surgery (SDC) | payer BC ==
[2022-05-26] MEDS ORDERED: Acetaminophen 500 MG TAB ONE (12:21)
[2022-05-26] MEDS ORDERED: diphenhydrAMINE 25 MG CAP ONE (12:23)
[2022-05-26 13:28] VITALS: BP 125/61; TEMP 97.5
== END 2022-05-26 14:06 | disposition home or self-care (01) ==
LOC: ONC/OP 11:18
PROVIDERS: ATTEND Internal Medicine Hematology & Oncology
PROC: 30233R1 Transfusion of Nonautologous Platelets into Peripheral Vein, Percutaneous Approach (ICD-10-PCS; principal; 2022-05-26)
DX: D69.6 Thrombocytopenia, unspecified (principal); D64.9 Anemia, unspecified
CPT/HCPCS: 36430; 80053; 82248; 83615; 84100; 84550; 86850; 86900; 86901; P9035

== ENCOUNTER 2022-06-04 13:25 | Day surgery (SDC) | payer BC ==
[2022-06-04] MEDS ORDERED: Acetaminophen 500 MG TAB ONE (14:07)
[2022-06-04] MEDS ORDERED: diphenhydrAMINE 25 MG CAP ONE (14:07)
[2022-06-04 17:29] VITALS: BP 138/63; TEMP 98.1
== END 2022-06-04 17:30 | disposition home or self-care (01) ==
LOC: ONC/OP 13:25
PROVIDERS: ATTEND Internal Medicine Hematology & Oncology
DX: D64.9 Anemia, unspecified (principal); D69.6 Thrombocytopenia, unspecified
CPT/HCPCS: 36430; 86850; 86900; 86901; P9035; P9040

== ENCOUNTER 2022-06-06 14:05 | Day surgery (SDC) | payer BC ==
[2022-06-06] MEDS ORDERED: Acetaminophen 500 MG TAB ONE (14:42)
[2022-06-06] MEDS ORDERED: diphenhydrAMINE 25 MG CAP ONE (14:50)
[2022-06-06 18:30] VITALS: BP 122/66; TEMP 98.3
== END 2022-06-06 18:34 | disposition home or self-care (01) ==
LOC: ONC/OP 14:05
PROVIDERS: ATTEND Internal Medicine Hematology & Oncology
PROC: 30233N1 Transfusion of Nonautologous Red Blood Cells into Peripheral Vein, Percutaneous Approach (ICD-10-PCS; principal; 2022-06-06)
PROC: 30233R1 Transfusion of Nonautologous Platelets into Peripheral Vein, Percutaneous Approach (ICD-10-PCS; principal; 2022-06-06)
DX: D64.9 Anemia, unspecified (principal); D69.6 Thrombocytopenia, unspecified
CPT/HCPCS: 36430; 86850; 86900; 86901; P9035; P9040

== ENCOUNTER 2022-06-10 08:48 | Day surgery (SDC) | payer BC ==
[2022-06-10] MEDS ORDERED: Acetaminophen 500 MG TAB ONE (09:27)
[2022-06-10] MEDS ORDERED: diphenhydrAMINE 25 MG CAP ONE (09:27)
[2022-06-10 17:44] VITALS: BP 134/65; TEMP 98.2
== END 2022-06-10 11:30 | disposition home or self-care (01) ==
LOC: ONC/OP 08:48
PROVIDERS: ATTEND Internal Medicine Hematology & Oncology
PROC: 30233R1 Transfusion of Nonautologous Platelets into Peripheral Vein, Percutaneous Approach (ICD-10-PCS; principal; 2022-06-10)
DX: D69.6 Thrombocytopenia, unspecified (principal); D64.9 Anemia, unspecified
CPT/HCPCS: 36430; 86850; 86900; 86901; P9035

== ENCOUNTER 2022-06-17 08:59 | Day surgery (SDC) | payer BC ==
[2022-06-17] MEDS ORDERED: diphenhydrAMINE 25 MG CAP PO SCH (09:15)
[2022-06-17] MEDS ORDERED: Acetaminophen 500 MG TAB PO SCH (09:15)
[2022-06-17] MEDS ORDERED: diphenhydrAMINE 25 MG CAP ONE (10:04)
[2022-06-17] MEDS ORDERED: Acetaminophen 500 MG TAB ONE (10:04)
[2022-06-17 12:41] VITALS: BP 143/69; TEMP 98
== END 2022-06-17 18:09 | disposition home or self-care (01) ==
LOC: ONC/OP 08:59
PROVIDERS: ATTEND Internal Medicine Hematology & Oncology
PROC: 30233R1 Transfusion of Nonautologous Platelets into Peripheral Vein, Percutaneous Approach (ICD-10-PCS; principal; 2022-06-17)
DX: D69.6 Thrombocytopenia, unspecified (principal); D64.9 Anemia, unspecified
CPT/HCPCS: 36430; 86850; 86900; 86901; P9035

== ENCOUNTER 2022-06-19 10:56 | Outpatient (CLI) | payer BC | END 2022-06-19 10:57 | disposition home or self-care (01) | LOC: RAD 10:56 | PROVIDERS: ATTEND Internal Medicine Critical Care Medicine | DX: R06.00 Dyspnea, unspecified (principal) | CPT/HCPCS: 71046 ==

== ENCOUNTER 2022-06-23 11:56 | Day surgery (SDC) | payer BC ==
[2022-06-23] MEDS ORDERED: Acetaminophen 500 MG TAB ONE (12:29)
[2022-06-23] MEDS ORDERED: diphenhydrAMINE 25 MG CAP ONE (12:29)
[2022-06-23 12:54] VITALS: BP 146/69
[2022-06-23 14:31] VITALS: TEMP 98.4
== END 2022-06-23 17:33 | disposition home or self-care (01) ==
LOC: ONC/OP 11:56
PROVIDERS: ATTEND Internal Medicine Medical Oncology
PROC: 30233R1 Transfusion of Nonautologous Platelets into Peripheral Vein, Percutaneous Approach (ICD-10-PCS; principal; 2022-06-23)
DX: D69.6 Thrombocytopenia, unspecified (principal); D64.9 Anemia, unspecified
CPT/HCPCS: 36430; 80053; 82248; 83615; 84100; 84550; 86850; 86900; 86901; P9035

== ENCOUNTER 2022-06-30 08:52 | Day surgery (SDC) | payer BC ==
[2022-06-30] MEDS ORDERED: diphenhydrAMINE 25 MG CAP ONE (09:32)
[2022-06-30] MEDS ORDERED: Acetaminophen 500 MG TAB ONE (09:32)
[2022-06-30 12:09] VITALS: BP 128/69; TEMP 98.2
== END 2022-06-30 10:40 | disposition home or self-care (01) ==
LOC: ONC/OP 08:52
PROVIDERS: ATTEND Internal Medicine Hematology & Oncology
PROC: 30233R1 Transfusion of Nonautologous Platelets into Peripheral Vein, Percutaneous Approach (ICD-10-PCS; principal; 2022-06-30)
DX: D69.6 Thrombocytopenia, unspecified (principal); D64.9 Anemia, unspecified
CPT/HCPCS: 36430; 80053; 82248; 83615; 84100; 84550; 86850; 86900; 86901; P9035

== ENCOUNTER 2022-07-03 11:30 | Day surgery (SDC) | payer BC ==
[2022-07-03] MEDS ORDERED: Acetaminophen 500 MG TAB ONE (11:54)
[2022-07-03] MEDS ORDERED: diphenhydrAMINE 25 MG CAP ONE (11:54)
[2022-07-03] MEDS ORDERED: diphenhydrAMINE 25 MG CAP PO SCH (12:00)
[2022-07-03] MEDS ORDERED: Acetaminophen 500 MG TAB PO SCH (12:00)
[2022-07-03 15:43] VITALS: BP 135/68; TEMP 98.6
== END 2022-07-03 15:44 | disposition home or self-care (01) ==
LOC: ONC/OP 11:30
PROVIDERS: ATTEND Internal Medicine Hematology & Oncology
PROC: 30233N1 Transfusion of Nonautologous Red Blood Cells into Peripheral Vein, Percutaneous Approach (ICD-10-PCS; principal; 2022-07-03)
PROC: 30233R1 Transfusion of Nonautologous Platelets into Peripheral Vein, Percutaneous Approach (ICD-10-PCS; principal; 2022-07-03)
DX: D64.9 Anemia, unspecified (principal); D69.6 Thrombocytopenia, unspecified
CPT/HCPCS: 36430; 86850; 86900; 86901; P9035; P9040

== ENCOUNTER 2022-07-10 08:55 | Day surgery (SDC) | payer BC ==
[2022-07-10] MEDS ORDERED: diphenhydrAMINE 25 MG CAP ONE (09:25)
[2022-07-10] MEDS ORDERED: Acetaminophen 500 MG TAB ONE (09:25)
[2022-07-10 13:17] VITALS: TEMP 98.5
[2022-07-10 15:57] VITALS: BP 152/79
== END 2022-07-10 15:58 | disposition home or self-care (01) ==
LOC: ONC/OP 08:55
PROVIDERS: ATTEND Internal Medicine Hematology & Oncology
PROC: 30233R1 Transfusion of Nonautologous Platelets into Peripheral Vein, Percutaneous Approach (ICD-10-PCS; principal; 2022-07-10)
PROC: 30233N1 Transfusion of Nonautologous Red Blood Cells into Peripheral Vein, Percutaneous Approach (ICD-10-PCS; principal; 2022-07-10)
DX: D64.9 Anemia, unspecified (principal); D69.6 Thrombocytopenia, unspecified
CPT/HCPCS: 36430; 86850; 86900; 86901; P9035; P9040

== ENCOUNTER 2022-07-17 11:28 | Day surgery (SDC) | payer BC ==
[2022-07-17] MEDS ORDERED: diphenhydrAMINE 25 MG CAP ONE ×2 (11:33→13:20)
[2022-07-17] MEDS ORDERED: Acetaminophen 500 MG TAB ONE (11:33)
[2022-07-17 13:42] VITALS: BP 124/63; TEMP 98.3
== END 2022-07-17 17:48 | disposition home or self-care (01) ==
LOC: ONC/OP 11:28
PROVIDERS: ATTEND Internal Medicine Hematology & Oncology
PROC: 30233R1 Transfusion of Nonautologous Platelets into Peripheral Vein, Percutaneous Approach (ICD-10-PCS; principal; 2022-07-17)
DX: D69.6 Thrombocytopenia, unspecified (principal); D64.9 Anemia, unspecified
CPT/HCPCS: 36430; 86850; 86900; 86901; 99212; G0463; P9035

== ENCOUNTER 2022-07-24 11:35 | Day surgery (SDC) | payer BC ==
[2022-07-24] MEDS ORDERED: Acetaminophen 500 MG TAB ONE (11:59)
[2022-07-24] MEDS ORDERED: diphenhydrAMINE 25 MG CAP PO SCH (12:00)
[2022-07-24] MEDS ORDERED: Acetaminophen 500 MG TAB PO SCH (12:00)
[2022-07-24 14:46] VITALS: BP 129/63; TEMP 98.4
== END 2022-07-24 13:45 | disposition home or self-care (01) ==
LOC: ONC/OP 11:35
PROVIDERS: ATTEND Internal Medicine Hematology & Oncology
PROC: 30233R1 Transfusion of Nonautologous Platelets into Peripheral Vein, Percutaneous Approach (ICD-10-PCS; principal; 2022-07-24)
DX: D69.6 Thrombocytopenia, unspecified (principal); D64.9 Anemia, unspecified
CPT/HCPCS: 36430; 86850; 86900; 86901; P9035

== ENCOUNTER 2022-07-28 08:30 | Day surgery (SDC) | payer BC ==
[2022-07-28] MEDS ORDERED: Acetaminophen 500 MG TAB ONE (09:09)
[2022-07-28] MEDS ORDERED: diphenhydrAMINE 25 MG CAP ONE (09:09)
[2022-07-28 10:11] VITALS: TEMP 98.2
[2022-07-28 10:23] VITALS: BP 132/65
== END 2022-07-28 10:24 | disposition home or self-care (01) ==
LOC: ONC/OP 08:30
PROVIDERS: ATTEND Internal Medicine Hematology & Oncology
PROC: 30233R1 Transfusion of Nonautologous Platelets into Peripheral Vein, Percutaneous Approach (ICD-10-PCS; principal; 2022-07-28)
DX: D69.6 Thrombocytopenia, unspecified (principal); D64.9 Anemia, unspecified
CPT/HCPCS: 36430; 86900; 86901; P9035

== ENCOUNTER → 2022-08-11 | Day surgery (SDC) | payer BC ==
[~2022-08-11] MED LIST changes: +Acetaminophen 500 MG TAB ONE; +diphenhydrAMINE 25 MG CAP ONE
[2022-08-11 12:15] VITALS: BP 120/57; TEMP 98.3
== END | disposition home or self-care (01) ==
LOC: ONC/OP 11:44
PROVIDERS: ATTEND Internal Medicine Hematology & Oncology
DX: D64.9 Anemia, unspecified (principal); Z53.8 Procedure and treatment not carried out for other reasons
CPT/HCPCS: 86850; 86900; 86901

== ENCOUNTER 2022-08-12 08:05 | Day surgery (SDC) | payer BC ==
[2022-08-12] MEDS ORDERED: diphenhydrAMINE 25 MG CAP PO SCH (09:00)
[2022-08-12] MEDS ORDERED: Acetaminophen 500 MG TAB PO SCH (09:00)
[2022-08-12 13:46] VITALS: BP 120/60; TEMP 97.8
== END 2022-08-12 13:55 | disposition home or self-care (01) ==
LOC: ONC/OP 08:05
PROVIDERS: ATTEND Internal Medicine Hematology & Oncology
PROC: 30233N1 Transfusion of Nonautologous Red Blood Cells into Peripheral Vein, Percutaneous Approach (ICD-10-PCS; principal; 2022-08-12)
DX: D64.9 Anemia, unspecified (principal); D69.6 Thrombocytopenia, unspecified
CPT/HCPCS: 36430; 86850; 86900; 86901; P9040

== ENCOUNTER 2022-08-14 08:52 | Day surgery (SDC) | payer BC ==
[2022-08-14] MEDS ORDERED: diphenhydrAMINE 25 MG CAP PO SCH (09:15)
[2022-08-14] MEDS ORDERED: Acetaminophen 500 MG TAB PO SCH (09:15)
[2022-08-14] MEDS ORDERED: diphenhydrAMINE 25 MG CAP ONE (09:38)
[2022-08-14] MEDS ORDERED: Acetaminophen 500 MG TAB ONE (09:38)
[2022-08-14 11:50] VITALS: BP 145/68; TEMP 98.1
== END 2022-08-14 12:03 | disposition home or self-care (01) ==
LOC: ONC/OP 08:52
PROVIDERS: ATTEND Internal Medicine Hematology & Oncology
PROC: 30233R1 Transfusion of Nonautologous Platelets into Peripheral Vein, Percutaneous Approach (ICD-10-PCS; principal; 2022-08-14)
DX: D69.6 Thrombocytopenia, unspecified (principal); D64.9 Anemia, unspecified
CPT/HCPCS: 36430; 86850; 86900; 86901; P9035

== ENCOUNTER 2022-08-22 08:19 | Day surgery (SDC) | payer BC ==
[2022-08-22] MEDS ORDERED: Acetaminophen 500 MG TAB ONE (08:58)
[2022-08-22] MEDS ORDERED: Acetaminophen 500 MG TAB PO SCH (09:00)
[2022-08-22] MEDS ORDERED: diphenhydrAMINE 25 MG CAP PO SCH (09:00)
[2022-08-22 10:53] VITALS: TEMP 98.2
[2022-08-22 10:54] VITALS: BP 135/63
== END 2022-08-22 09:52 | disposition home or self-care (01) ==
LOC: ONC/OP 08:19
PROVIDERS: ATTEND Internal Medicine Hematology & Oncology
PROC: 30233R1 Transfusion of Nonautologous Platelets into Peripheral Vein, Percutaneous Approach (ICD-10-PCS; principal; 2022-08-22)
DX: D69.6 Thrombocytopenia, unspecified (principal); D64.9 Anemia, unspecified
CPT/HCPCS: 36430; 86850; 86900; 86901; P9035

== ENCOUNTER 2022-08-26 08:20 | Day surgery (SDC) | payer BC ==
[2022-08-26] MEDS ORDERED: Acetaminophen 500 MG TAB PO SCH (08:30)
[2022-08-26] MEDS ORDERED: diphenhydrAMINE 25 MG CAP PO SCH (08:30)
[2022-08-26] MEDS ORDERED: diphenhydrAMINE 25 MG CAP ONE (08:42)
[2022-08-26] MEDS ORDERED: Acetaminophen 500 MG TAB ONE (08:42)
[2022-08-26 12:16] VITALS: TEMP 98.1
[2022-08-26 12:34] VITALS: BP 132/64
== END 2022-08-26 12:35 | disposition home or self-care (01) ==
LOC: ONC/OP 08:20
PROVIDERS: ATTEND Internal Medicine Hematology & Oncology
PROC: 30233R1 Transfusion of Nonautologous Platelets into Peripheral Vein, Percutaneous Approach (ICD-10-PCS; principal; 2022-08-26)
DX: D69.6 Thrombocytopenia, unspecified (principal); D64.9 Anemia, unspecified
CPT/HCPCS: 36430; 86850; 86900; 86901; P9035

== ENCOUNTER → 2022-09-08 | Day surgery (SDC) | payer BC ==
[2022-09-08 10:42] VITALS: BP 147/70; TEMP 98.2
== END | disposition home or self-care (01) ==
LOC: ONC/OP 08:41
PROVIDERS: ATTEND Internal Medicine Hematology & Oncology
PROC: 30233R1 Transfusion of Nonautologous Platelets into Peripheral Vein, Percutaneous Approach (ICD-10-PCS; principal; 2022-09-08)
DX: D69.6 Thrombocytopenia, unspecified (principal); D64.9 Anemia, unspecified
CPT/HCPCS: 36430; 86850; 86900; 86901; P9035

== ENCOUNTER 2022-09-22 08:41 | Day surgery (SDC) | payer BC ==
[2022-09-22] MEDS ORDERED: diphenhydrAMINE 25 MG CAP PO SCH (09:00)
[2022-09-22] MEDS ORDERED: Acetaminophen 500 MG TAB PO SCH (09:00)
[2022-09-22] MEDS ORDERED: Acetaminophen 500 MG TAB ONE (09:15)
[2022-09-22 10:46] VITALS: TEMP 98.5
[2022-09-22 10:47] VITALS: BP 110/55
== END 2022-09-22 11:54 | disposition home or self-care (01) ==
LOC: ONC/OP 08:41
PROVIDERS: ATTEND Internal Medicine Hematology & Oncology
PROC: 30233R1 Transfusion of Nonautologous Platelets into Peripheral Vein, Percutaneous Approach (ICD-10-PCS; principal; 2022-09-22)
DX: D69.6 Thrombocytopenia, unspecified (principal); D64.9 Anemia, unspecified
CPT/HCPCS: 36430; 86850; 86900; 86901; P9035

== ENCOUNTER 2022-09-25 09:16 | Day surgery (SDC) | payer BC ==
[2022-09-25] MEDS ORDERED: diphenhydrAMINE 25 MG CAP PO SCH (09:45)
[2022-09-25] MEDS ORDERED: Acetaminophen 500 MG TAB PO SCH (09:45)
[2022-09-25] MEDS ORDERED: Acetaminophen 500 MG TAB ONE (10:06)
[2022-09-25 11:35] VITALS: BP 108/59; TEMP 98.5
== END 2022-09-25 11:16 | disposition home or self-care (01) ==
LOC: ONC/OP 09:16
PROVIDERS: ATTEND Internal Medicine Hematology & Oncology
PROC: 30233R1 Transfusion of Nonautologous Platelets into Peripheral Vein, Percutaneous Approach (ICD-10-PCS; principal; 2022-09-25)
DX: D69.6 Thrombocytopenia, unspecified (principal); D64.9 Anemia, unspecified
CPT/HCPCS: 36430; 86850; 86900; 86901; P9035

== ENCOUNTER 2022-09-29 10:03 | Day surgery (SDC) | payer BC ==
[2022-09-29] MEDS ORDERED: diphenhydrAMINE 25 MG CAP PO SCH (10:30)
[2022-09-29] MEDS ORDERED: Acetaminophen 500 MG TAB PO SCH (10:30)
[2022-09-29] MEDS ORDERED: diphenhydrAMINE 25 MG CAP ONE (10:37)
[2022-09-29] MEDS ORDERED: Acetaminophen 500 MG TAB ONE (10:37)
[2022-09-29 12:05] VITALS: BP 116/59; TEMP 98.8
== END 2022-09-29 13:26 | disposition home or self-care (01) ==
LOC: ONC/OP 10:03
PROVIDERS: ATTEND Internal Medicine Hematology & Oncology
PROC: 30233R1 Transfusion of Nonautologous Platelets into Peripheral Vein, Percutaneous Approach (ICD-10-PCS; principal; 2022-09-29)
DX: D69.6 Thrombocytopenia, unspecified (principal); D64.9 Anemia, unspecified; D69.3 Immune thrombocytopenic purpura; C93.10 Chronic myelomonocytic leukemia not having achieved remission
CPT/HCPCS: 36430; 84132; 85007; 85027; 85060; 86850; 86900; 86901; 88184; P9035

== ENCOUNTER 2022-10-02 09:09 | Day surgery (SDC) | payer BC ==
[2022-10-02] MEDS ORDERED: Acetaminophen 500 MG TAB PO SCH (09:30)
[2022-10-02] MEDS ORDERED: diphenhydrAMINE 25 MG CAP PO SCH (09:30)
[2022-10-02] MEDS ORDERED: Acetaminophen 500 MG TAB ONE (09:32)
[2022-10-02] MEDS ORDERED: diphenhydrAMINE 25 MG CAP ONE (09:32)
[2022-10-02 10:32] VITALS: TEMP 98
[2022-10-02 13:20] VITALS: BP 145/65
== END 2022-10-02 11:00 | disposition home or self-care (01) ==
LOC: ONC/OP 09:09
PROVIDERS: ATTEND Internal Medicine Hematology & Oncology
PROC: 30233R1 Transfusion of Nonautologous Platelets into Peripheral Vein, Percutaneous Approach (ICD-10-PCS; principal; 2022-10-02)
DX: D69.6 Thrombocytopenia, unspecified (principal); D64.9 Anemia, unspecified
CPT/HCPCS: 36430; 84132; 86850; 86900; 86901; P9035

== ENCOUNTER 2022-10-20 09:33 | Day surgery (SDC) | payer BC ==
[2022-10-20] MEDS ORDERED: Acetaminophen 500 MG TAB PO SCH (10:00)
[2022-10-20] MEDS ORDERED: diphenhydrAMINE 25 MG CAP PO SCH (10:00)
[2022-10-20] MEDS ORDERED: diphenhydrAMINE 25 MG CAP ONE (11:14)
[2022-10-20] MEDS ORDERED: Acetaminophen 500 MG TAB ONE (11:14)
[2022-10-20 12:06] VITALS: BP 129/65; TEMP 98.3
== END 2022-10-20 12:02 | disposition home or self-care (01) ==
LOC: ONC/OP 09:33
PROVIDERS: ATTEND Internal Medicine Hematology & Oncology
PROC: 30233R1 Transfusion of Nonautologous Platelets into Peripheral Vein, Percutaneous Approach (ICD-10-PCS; principal; 2022-10-20)
DX: D69.6 Thrombocytopenia, unspecified (principal); D64.9 Anemia, unspecified
CPT/HCPCS: 36430; 86850; 86900; 86901; P9035

== ENCOUNTER 2022-10-23 08:38 | Day surgery (SDC) | payer BC ==
[2022-10-23] MEDS ORDERED: Acetaminophen 500 MG TAB ONE (09:13)
[2022-10-23] MEDS ORDERED: diphenhydrAMINE 25 MG CAP ONE (09:13)
[2022-10-23] MEDS ORDERED: diphenhydrAMINE 25 MG CAP PO SCH (09:15)
[2022-10-23] MEDS ORDERED: Acetaminophen 500 MG TAB PO SCH (09:15)
[2022-10-23 10:40] VITALS: BP 133/60; TEMP 98.3
== END 2022-10-23 10:41 | disposition home or self-care (01) ==
LOC: ONC/OP 08:38
PROVIDERS: ATTEND Internal Medicine Hematology & Oncology
PROC: 30233R1 Transfusion of Nonautologous Platelets into Peripheral Vein, Percutaneous Approach (ICD-10-PCS; principal; 2022-10-23)
DX: D69.6 Thrombocytopenia, unspecified (principal); D64.9 Anemia, unspecified
CPT/HCPCS: 36430; 84132; 86850; 86900; 86901; P9035

== ENCOUNTER 2022-10-27 08:46 | Day surgery (SDC) | payer BC ==
[2022-10-27] MEDS ORDERED: diphenhydrAMINE 25 MG CAP PO SCH (09:00)
[2022-10-27] MEDS ORDERED: Acetaminophen 500 MG TAB PO SCH (09:00)
[2022-10-27] MEDS ORDERED: diphenhydrAMINE 25 MG CAP ONE (09:43)
[2022-10-27] MEDS ORDERED: Acetaminophen 500 MG TAB ONE (09:43)
[2022-10-27] MEDS ORDERED: Ondansetron 2MG/ML MDV 10 MG in Sodium Chloride 0.9% 50 ML IVPB SCH (10:00)
[2022-10-27 13:20] VITALS: BP 154/76; TEMP 98.3
== END 2022-10-27 14:14 | disposition home or self-care (01) ==
LOC: ONC/OP 08:46
PROVIDERS: ATTEND Internal Medicine Hematology & Oncology
PROC: 30233R1 Transfusion of Nonautologous Platelets into Peripheral Vein, Percutaneous Approach (ICD-10-PCS; principal; 2022-10-27)
PROC: 30233N1 Transfusion of Nonautologous Red Blood Cells into Peripheral Vein, Percutaneous Approach (ICD-10-PCS; principal; 2022-10-27)
DX: D64.9 Anemia, unspecified (principal); D69.6 Thrombocytopenia, unspecified
CPT/HCPCS: 36430; 86850; 86900; 86901; J2405; P9035; P9040

== ENCOUNTER 2022-11-28 09:18 | Day surgery (SDC) | payer BC ==
[2022-11-28] MEDS ORDERED: Acetaminophen 500 MG TAB PO SCH (10:00)
[2022-11-28] MEDS ORDERED: diphenhydrAMINE 25 MG CAP PO SCH (10:00)
[2022-11-28] MEDS ORDERED: Acetaminophen 500 MG TAB ONE (10:22)
[2022-11-28] MEDS ORDERED: diphenhydrAMINE 25 MG CAP ONE (10:22)
[2022-11-28 16:33] VITALS: BP 148/69; TEMP 98.3
== END 2022-11-28 11:45 | disposition home or self-care (01) ==
LOC: ONC/OP 09:18
PROVIDERS: ATTEND Internal Medicine Hematology & Oncology
DX: D64.9 Anemia, unspecified (principal); D69.59 Other secondary thrombocytopenia
CPT/HCPCS: 36430; 80053; 82248; 83615; 84100; 84550; 86850; 86900; 86901; J1642; P9035

== ENCOUNTER 2022-12-01 08:52 | Day surgery (SDC) | payer BC ==
[2022-12-01] MEDS ORDERED: Acetaminophen 500 MG TAB PO SCH (09:15)
[2022-12-01] MEDS ORDERED: diphenhydrAMINE 25 MG CAP PO SCH (09:15)
[2022-12-01] MEDS ORDERED: diphenhydrAMINE 25 MG CAP ONE (10:16)
[2022-12-01] MEDS ORDERED: Acetaminophen 500 MG TAB ONE (10:16)
[2022-12-01 13:03] LABS: Hemoglobin 7.1 g/dL (12.0-16.0); Manual Diff?? YES; Mean Corpuscular HGB CONC 32.9 g/dL (32.0-36.0); Mean Corpuscular Volume 88.2 fl (78.0-98.0); Mean Platelet Volume 9.4 fL (7.4-10.4); RBC Distribution Width 13.7 % (11.5-14.5); Red Blood Cell (RBC) Count 2.45 mill/uL (4.20-5.40); White Blood Cell (WBC) Count 3.2 10x3/uL (4.8-10.8)
[2022-12-01 13:10] LABS: Delete Auto Diff?? YES; Platelet Count 70 10x3/uL (130-400)
[2022-12-01 13:35] LABS: Band 13 % (5-11); CellaVision Operator ID LAB.KB; Eosinophils 1 % (0-10); Lymphocytes 9 % (21-51); Monocytes 36 % (0-10); Neutrophil 41 % (42-75); Platelet Adequacy Comment Platelets Decreased; Polychromasia SLIGHT = 2-3 cells HPF (0-2); Smudge Cells 9.6 %; Total Cell Count 104
[2022-12-01 13:51] VITALS: TEMP 98.2
[2022-12-01 13:52] VITALS: BP 120/62
== END 2022-12-01 12:45 | disposition home or self-care (01) ==
LOC: ONC/OP 08:52
PROVIDERS: ATTEND Internal Medicine Hematology & Oncology
DX: D64.9 Anemia, unspecified (principal); D69.6 Thrombocytopenia, unspecified
CPT/HCPCS: 36430; 80053; 82248; 83615; 84100; 84550; 85025; 86850; 86900; 86901; P9035

== ENCOUNTER 2022-12-03 08:58 | Day surgery (SDC) | payer BC ==
[2022-12-03] MEDS ORDERED: diphenhydrAMINE 25 MG CAP PO SCH (09:15)
[2022-12-03] MEDS ORDERED: Acetaminophen 500 MG TAB PO SCH (09:15)
[2022-12-03] MEDS ORDERED: diphenhydrAMINE 25 MG CAP ONE (09:24)
[2022-12-03] MEDS ORDERED: Acetaminophen 500 MG TAB ONE (09:24)
[2022-12-03 10:35] VITALS: BP 143/73; TEMP 98.5
== END 2022-12-03 10:47 | disposition home or self-care (01) ==
LOC: ONC/OP 08:58
PROVIDERS: ATTEND Internal Medicine Hematology & Oncology
DX: D64.9 Anemia, unspecified (principal); D69.6 Thrombocytopenia, unspecified
CPT/HCPCS: 36430; 80053; 82248; 83615; 84100; 84550; 86850; 86900; 86901; J1642; P9035

== ENCOUNTER 2023-01-08 14:05 | Day surgery (SDC) | payer MEDICARE, BC ==
[2023-01-08] MEDS ORDERED: Dexamethasone 10 MG/ML VIAL SLOW IVP SCH (14:30)
[2023-01-08] MEDS ORDERED: diphenhydrAMINE 50 MG/ML VIAL IVP SCH (14:30)
[2023-01-08] MEDS ORDERED: Acetaminophen 500 MG TAB PO SCH (14:30)
[2023-01-08] MEDS ORDERED: diphenhydrAMINE 50 MG/ML VIAL ONE (14:39)
[2023-01-08] MEDS ORDERED: Dexamethasone 10 MG/ML VIAL ONE (14:39)
[2023-01-08] MEDS ORDERED: Acetaminophen 500 MG TAB ONE (14:39)
[2023-01-08 18:11] VITALS: BP 121/68; TEMP 98.7
== END 2023-01-08 18:21 | disposition home or self-care (01) ==
LOC: ONC/OP 14:05
PROVIDERS: ATTEND Internal Medicine Hematology & Oncology
DX: D64.9 Anemia, unspecified (principal); D69.6 Thrombocytopenia, unspecified
CPT/HCPCS: 36430; 86850; 86900; 86901; 86920; P9035; P9040; J1100; J1200; J1642

== ENCOUNTER 2023-01-12 08:28 | Day surgery (SDC) | payer MEDICARE, BC ==
[2023-01-12] MEDS ORDERED: Acetaminophen 500 MG TAB ONE (08:44)
[2023-01-12] MEDS ORDERED: Dexamethasone 10 MG/ML VIAL ONE (08:44)
[2023-01-12] MEDS ORDERED: diphenhydrAMINE 50 MG/ML VIAL ONE (08:44)
[2023-01-12] MEDS ORDERED: Acetaminophen 500 MG TAB PO SCH (08:45)
[2023-01-12] MEDS ORDERED: diphenhydrAMINE 50 MG/ML VIAL IVP SCH (08:45)
[2023-01-12] MEDS ORDERED: Dexamethasone 10 MG/ML VIAL SLOW IVP SCH (08:45)
[2023-01-12 11:02] VITALS: BP 155/73; TEMP 98.1
== END 2023-01-12 11:03 | disposition home or self-care (01) ==
LOC: ONC/OP 08:28
PROVIDERS: ATTEND Internal Medicine Hematology & Oncology
DX: D64.9 Anemia, unspecified (principal); D69.59 Other secondary thrombocytopenia
CPT/HCPCS: 36430; 80053; 82248; 83615; 84100; 84550; 86850; 86900; 86901; P9035; J1100; J1200

== ENCOUNTER 2023-01-16 08:37 | Day surgery (SDC) | payer MEDICARE, BC ==
[2023-01-16] MEDS ORDERED: Dexamethasone 10 MG/ML VIAL SLOW IVP SCH (09:00)
[2023-01-16] MEDS ORDERED: Acetaminophen 500 MG TAB PO SCH (09:00)
[2023-01-16] MEDS ORDERED: diphenhydrAMINE 50 MG/ML VIAL IVP SCH (09:00)
[2023-01-16] MEDS ORDERED: diphenhydrAMINE 50 MG/ML VIAL ONE (09:15)
[2023-01-16] MEDS ORDERED: Acetaminophen 500 MG TAB ONE (09:15)
[2023-01-16] MEDS ORDERED: Dexamethasone 10 MG/ML VIAL ONE (09:15)
[2023-01-16 11:40] VITALS: BP 150/68; TEMP 98.1
== END 2023-01-16 11:48 | disposition home or self-care (01) ==
LOC: ONC/OP 08:37
PROVIDERS: ATTEND Internal Medicine Hematology & Oncology
DX: D64.9 Anemia, unspecified (principal); D69.59 Other secondary thrombocytopenia; C93.10 Chronic myelomonocytic leukemia not having achieved remission; D69.3 Immune thrombocytopenic purpura
CPT/HCPCS: 36430; 80053; 82248; 83615; 84100; 84550; 86850; 86900; 86901; 96374; 96375; P9035; J1100; J1200; J1642

== ENCOUNTER 2023-01-21 08:48 | Day surgery (SDC) | payer MEDICARE, BC ==
[2023-01-21] MEDS ORDERED: Acetaminophen 500 MG TAB PO SCH (09:00)
[2023-01-21] MEDS ORDERED: diphenhydrAMINE 50 MG/ML VIAL IVP SCH (09:00)
[2023-01-21] MEDS ORDERED: Dexamethasone 10 MG/ML VIAL SLOW IVP SCH (09:00)
[2023-01-21] MEDS ORDERED: Acetaminophen 500 MG TAB ONE (09:17)
[2023-01-21] MEDS ORDERED: diphenhydrAMINE 50 MG/ML VIAL ONE (09:17)
[2023-01-21] MEDS ORDERED: Dexamethasone 10 MG/ML VIAL ONE (09:17)
[2023-01-21 14:04] VITALS: BP 143/67; TEMP 98
== END 2023-01-21 14:05 | disposition home or self-care (01) ==
LOC: ONC/OP 08:48
PROVIDERS: ATTEND Internal Medicine Hematology & Oncology
DX: D64.9 Anemia, unspecified (principal); D69.6 Thrombocytopenia, unspecified
CPT/HCPCS: 36430; 86850; 86900; 86901; 86920; 96374; 96375; P9035; P9040; 80053; 82248; 83615; 84100; 84550; J1100; J1200

== ENCOUNTER 2023-02-09 09:05 | Day surgery (SDC) | payer MEDICARE, BC ==
[2023-02-09] MEDS ORDERED: diphenhydrAMINE 50 MG/ML VIAL IVP SCH (09:30)
[2023-02-09] MEDS ORDERED: Acetaminophen 500 MG TAB PO SCH (09:30)
[2023-02-09] MEDS ORDERED: Dexamethasone 10 MG/ML VIAL SLOW IVP SCH (09:30)
[2023-02-09] MEDS ORDERED: diphenhydrAMINE 50 MG/ML VIAL ONE (09:53)
[2023-02-09] MEDS ORDERED: Acetaminophen 500 MG TAB ONE (09:53)
[2023-02-09] MEDS ORDERED: Dexamethasone 10 MG/ML VIAL ONE (09:53)
[2023-02-09] MEDS ORDERED: Famotidine/PF 20 mg/2ml Vial ONE (14:34)
[2023-02-09] MEDS ORDERED: Famotidine/PF 20 mg/2ml Vial SLOW IVP SCH (14:45)
[2023-02-09 14:52] VITALS: BP 134/63; TEMP 98.8
== END 2023-02-09 15:20 | disposition home or self-care (01) ==
LOC: ONC/OP 09:05
PROVIDERS: ATTEND Internal Medicine Hematology & Oncology
DX: D64.9 Anemia, unspecified (principal); D69.6 Thrombocytopenia, unspecified
CPT/HCPCS: 36430; 86850 ×2; 86900; 86901; 86920; P9035; P9040; J1100; J1200; S0028

== ENCOUNTER 2023-02-13 09:01 | Day surgery (SDC) | payer MEDICARE, BC ==
[2023-02-13] MEDS ORDERED: Famotidine/PF 20 mg/2ml Vial SLOW IVP SCH ×2 (09:15→15:00)
[2023-02-13] MEDS ORDERED: Acetaminophen 500 MG TAB PO SCH (09:15)
[2023-02-13] MEDS ORDERED: methylPREDNISolone Sod Succ/PF 125 MG/2 ML VIAL IVP SCH (09:30)
[2023-02-13] MEDS ORDERED: methylPREDNISolone Sod Succ/PF 125 MG/2 ML VIAL ONE (10:55)
[2023-02-13] MEDS ORDERED: Famotidine/PF 20 mg/2ml Vial ONE ×2 (10:55→14:37)
[2023-02-13] MEDS ORDERED: diphenhydrAMINE 50 MG/ML VIAL ONE ×2 (10:55→11:49)
[2023-02-13] MEDS: diphenhydrAMINE 50 MG/ML VIAL IVP SCH ×2 (10:59→11:51)
[2023-02-13] MEDS ORDERED: Acetaminophen 500 MG TAB ONE (11:11)
[2023-02-13] MEDS ORDERED: diphenhydrAMINE 25 MG CAP ONE (11:49)
[2023-02-13] MEDS ORDERED: diphenhydrAMINE 50 MG/ML VIAL IVP SCH (12:00)
[2023-02-13 15:35] VITALS: BP 128/66; TEMP 98.7
== END 2023-02-13 15:40 | disposition home or self-care (01) ==
LOC: ONC/OP 09:01
PROVIDERS: ATTEND Internal Medicine Hematology & Oncology
DX: D64.9 Anemia, unspecified (principal); D69.59 Other secondary thrombocytopenia
CPT/HCPCS: 36430; 86850; 86900; 86901; 96374; 96375; P9035; J1200; J2930; S0028

== ENCOUNTER 2023-02-17 08:36 | Day surgery (SDC) | payer MEDICARE, BC ==
[2023-02-17] MEDS ORDERED: Famotidine/PF 20 mg/2ml Vial SLOW IVP SCH (09:00)
[2023-02-17] MEDS ORDERED: diphenhydrAMINE 50 MG/ML VIAL IVP SCH ×2 (09:00→14:00)
[2023-02-17] MEDS ORDERED: methylPREDNISolone Sod Succ/PF 125 MG/2 ML VIAL IVP SCH (09:00)
[2023-02-17] MEDS ORDERED: Acetaminophen 500 MG TAB PO SCH (09:00)
[2023-02-17] MEDS ORDERED: Acetaminophen 500 MG TAB ONE (09:44)
[2023-02-17] MEDS ORDERED: diphenhydrAMINE 50 MG/ML VIAL ONE (12:31)
[2023-02-17] MEDS ORDERED: methylPREDNISolone Sod Succ/PF 125 MG/2 ML VIAL ONE (12:31)
[2023-02-17] MEDS ORDERED: Famotidine/PF 20 mg/2ml Vial ONE (12:31)
[2023-02-17 15:31] VITALS: BP 118/57; TEMP 97.6
== END 2023-02-17 15:22 | disposition home or self-care (01) ==
LOC: ONC/OP 08:36
PROVIDERS: ATTEND Internal Medicine Hematology & Oncology
DX: D64.9 Anemia, unspecified (principal); D69.6 Thrombocytopenia, unspecified
CPT/HCPCS: 36430; 86850; 86900; 86901; 86920; P9035; P9040; J1200; J2930; S0028

== ENCOUNTER 2023-02-20 11:18 | Day surgery (SDC) | payer BC ==
[2023-02-20] MEDS ORDERED: Famotidine/PF 20 mg/2ml Vial SLOW IVP SCH (11:30)
[2023-02-20] MEDS ORDERED: methylPREDNISolone Sod Succ/PF 125 MG/2 ML VIAL IVP SCH (11:30)
[2023-02-20] MEDS ORDERED: Acetaminophen 500 MG TAB PO SCH (11:30)
[2023-02-20] MEDS ORDERED: diphenhydrAMINE 25 MG CAP PO SCH (11:30)
[2023-02-20] MEDS ORDERED: diphenhydrAMINE 50 MG/ML VIAL IVP SCH ×2 (11:45)
[2023-02-20] MEDS ORDERED: diphenhydrAMINE 50 MG/ML VIAL ONE (11:52)
[2023-02-20] MEDS ORDERED: methylPREDNISolone Sod Succ/PF 125 MG/2 ML VIAL ONE (11:52)
[2023-02-20] MEDS ORDERED: Famotidine/PF 20 mg/2ml Vial ONE (11:53)
[2023-02-20] MEDS ORDERED: Acetaminophen 500 MG TAB ONE (12:20)
[2023-02-20 14:29] VITALS: BP 157/76; TEMP 98.6
== END 2023-02-20 14:23 | disposition home or self-care (01) ==
LOC: ONC/OP 11:18
PROVIDERS: ATTEND Internal Medicine Hematology & Oncology
DX: D64.9 Anemia, unspecified (principal); D69.6 Thrombocytopenia, unspecified
CPT/HCPCS: 36430; 86850; 86900; 86901; J1200; J1642; J2930; P9035; S0028

== ENCOUNTER 2023-02-22 08:17 | Inpatient (IN) | payer MEDICARE, BC ==
[2023-02-22] MEDS ORDERED: Iopamidol-370 76% 500 ML MDV (1 ML CHARGE) ONE (08:52)
[2023-02-22] MEDS ORDERED: Morphine 4 MG/ML VIAL ONE (08:53)
[2023-02-22] MEDS ORDERED: Ondansetron PF 4 MG/2 ML Vial ONE (08:54)
[2023-02-22 09:12] LABS: ALT (SGPT) 42 U/L (8-55); AST (SGOT) 54 U/L (5-34); Albumin 4.1 g/dL (3.4-4.8); Alkaline Phosphatase 132 U/L (40-110); Anion Gap 13 mmol/L (10-20); BUN (Urea Nitrogen) 18 mg/dL (9.8-20.1); Bilirubin, Total 0.5 mg/dL (0.2-1.2); CK (CPK) 9 U/L (29-168); Calc. Creatinine Clearance 0 mL/min (70-130); Calcium 9.9 mg/dL (7.8-10.44); Carbon Dioxide 24 mmol/L (23-31); Chloride 106 mmol/L (98-107); Estimated GFR 75; Globulin 2.4 g/dL (2.4-3.5); Glucose 97 mg/dL (80-115); Potassium 3.4 mmol/L (3.5-5.1); Protein, Total 6.5 g/dL (5.8-8.1); Sodium 140 mmol/L (136-145)
[2023-02-22 09:14] LABS: #Monocytes 3.2 thou/uL (0.11-0.59); #Neutrophils 1.3 thou/uL (1.40-6.50); %Basophils 0.2 % (0.0-1.0); %Lymphocytes 6.5 % (21.0-51.0); %Monocytes 57.2 % (0.0-10.0); %Neutrophils 22.4 % (42.0-75.0); Hematocrit 26.5 % (36.0-47.0); Hemoglobin 9.3 g/dL (12.0-16.0); Manual Diff?? YES; Mean Corpuscular HGB CONC 35.1 g/dL (32.0-36.0); Mean Corpuscular Hemoglobin 30.1 pg (27.0-31.0); Mean Corpuscular Volume 85.8 fl (78.0-98.0); Mean Platelet Volume 11.3 fL (7.4-10.4); RBC Distribution Width 12.9 % (11.5-14.5); Red Blood Cell (RBC) Count 3.09 mill/uL (4.20-5.40); White Blood Cell (WBC) Count 5.6 10x3/uL (4.8-10.8)
[2023-02-22 09:16] LABS: Troponin I 0.015 ng/mL (< 0.028)
[2023-02-22 09:18] LABS: Platelet Count 9 10x3/uL (130-400)
[2023-02-22 09:53] LABS: Band 17 % (5-11); CellaVision Operator ID LAB.CMB; Lymphocytes 10 % (21-51); Metamyelocyte 3 % (0-0); Monocytes 31 % (0-10); Neutrophil 28 % (42-75); Nucleated RBC (Manual Ct) 2 % (0); Other Cell Types 10.7; Plasma Cells 1 % (0-0); Platelet Adequacy Comment Platelets Decreased; Platelet Clumps 0.9 % (0-5); Total Cell Count 112
[2023-02-22] MEDS ORDERED: traMADol HCl 50 MG TAB ONE (10:24)
[2023-02-22] MEDS ORDERED: Potassium Chloride 20 MEQ TAB PO SCH (10:30)
[2023-02-22] MEDS ORDERED: Ondansetron PF 4 MG/2 ML Vial IVP PRN (11:00)
[2023-02-22] MEDS ORDERED: Bisacodyl 5 MG TAB PO PRN (11:00)
[2023-02-22] MEDS ORDERED: HYDROcodone/Acetaminophen 5/325 mg Tablet PO PRN ×2 (11:00)
[2023-02-22] MEDS ORDERED: Morphine 2 MG/ML VIAL SLOW IVP PRN (11:06)
[2023-02-22] MEDS ORDERED: Promethazine HCl 25 MG in Sodium Chloride 0.9% 50 ML IVPB PRN (11:07)
[2023-02-22] MEDS ORDERED: Lidocaine 2% Viscous Solution 10 ML, Aluminum & Magnesium Hydroxide 30 ML SSW SCH (11:15)
[2023-02-22 13:11] LABS: Troponin I 0.011 ng/mL (< 0.028)
[2023-02-22 14:02] VITALS: BMI 24.1
[2023-02-22] MEDS ORDERED: diphenhydrAMINE 25 MG CAP PO PRN (15:21)
[2023-02-22] MEDS: Acetaminophen 325 MG TAB PO PRN ×2 (15:58→23:36)
[2023-02-22 16:17] LABS: Troponin I Less than 0.010 ng/mL (< 0.028)
[2023-02-22] MEDS ORDERED: Ondansetron PF 4 MG/2 ML Vial IVP SCH (21:00)
[2023-02-22] MEDS ORDERED: diphenhydrAMINE 50 MG/ML VIAL IVP SCH (21:00)
[2023-02-22] MEDS ORDERED: Atorvastatin Calcium 10 MG TAB PO SCH (21:00)
[2023-02-22] MEDS ORDERED: methylPREDNISolone Sod Succ 40 MG VIAL IVP SCH (21:00)
[2023-02-22] MEDS: valACYclovir 500 MG TAB PO SCH (22:23)
[2023-02-22] MEDS: Rosuvastatin 5 MG TAB PO SCH (22:24)
[2023-02-22] MEDS: Metoprolol Tartrate 50 MG TAB PO SCH (22:24)
[2023-02-22] MEDS: Ursodiol 300 MG CAP PO SCH (22:24)
[2023-02-22] MEDS: Potassium Chloride 10 MEQ TAB PO SCH (22:24)
[2023-02-23 04:49] LABS: Hematocrit 23.4 % (36.0-47.0); Hemoglobin 8.1 g/dL (12.0-16.0); Manual Diff?? YES; Mean Corpuscular HGB CONC 34.6 g/dL (32.0-36.0); Mean Corpuscular Hemoglobin 29.6 pg (27.0-31.0); Mean Corpuscular Volume 85.4 fl (78.0-98.0); Mean Platelet Volume 10.4 fL (7.4-10.4); RBC Distribution Width 13.2 % (11.5-14.5); Red Blood Cell (RBC) Count 2.74 mill/uL (4.20-5.40); White Blood Cell (WBC) Count 7.5 10x3/uL (4.8-10.8)
[2023-02-23 05:08] LABS: Platelet Count 21 10x3/uL (130-400)
[2023-02-23 05:09] LABS: Delete Auto Diff?? YES
[2023-02-23 05:14] LABS: Anion Gap 14 mmol/L (10-20); BUN (Urea Nitrogen) 19 mg/dL (9.8-20.1); Calc. Creatinine Clearance 65 mL/min (70-130); Calcium 10.1 mg/dL (7.8-10.44); Carbon Dioxide 24 mmol/L (23-31); Chloride 106 mmol/L (98-107); Estimated GFR 69; Glucose 165 mg/dL (80-115); Potassium 3.7 mmol/L (3.5-5.1); Sodium 140 mmol/L (136-145)
[2023-02-23 05:43] LABS: Band 15 % (5-11); CellaVision Operator ID LAB.JMM; Eosinophils 1 % (0-10); Lymphocytes 5 % (21-51); Monocytes 33 % (0-10); Neutrophil 23 % (42-75); Platelet Adequacy Comment Platelets Decreased; RBC Morphology Within Normal Limits; Smudge Cells 17.9 %; Total Cell Count 106
[2023-02-23] MEDS ORDERED: Hydrochlorothiazide 25 MG TAB PO SCH (09:00)
[2023-02-23] MEDS ORDERED: Calcium/Multivitamins W-Iron 1 TAB TAB PO SCH (09:00)
[2023-02-23] MEDS ORDERED: Amlodipine 5 MG TAB PO SCH (09:00)
[2023-02-23] MEDS: valACYclovir 500 MG TAB PO SCH ×2 (09:05→20:51)
[2023-02-23] MEDS: Floranex 1 GM Packet PO SCH (09:05)
[2023-02-23] MEDS: Multivitamin W/ Minerals 1 TAB PO SCH (09:06)
[2023-02-23] MEDS: Magnesium Oxide 250 MG TAB PO SCH (09:06)
[2023-02-23] MEDS: Ursodiol 300 MG CAP PO SCH ×3 (09:06→20:51)
[2023-02-23] MEDS: Metoprolol Tartrate 50 MG TAB PO SCH ×2 (09:07→20:49)
[2023-02-23] MEDS: Potassium Chloride 10 MEQ TAB PO SCH ×2 (09:08→20:50)
[2023-02-23] MEDS: Calcium Carbonate 600 MG + Vit D TAB PO SCH (09:08)
[2023-02-23] MEDS: Atovaquone 750 MG/5 ML UDCUP PO SCH (09:09)
[2023-02-23] MEDS ORDERED: LevoFLOXacin 500 MG TAB PO SCH (15:00)
[2023-02-23] MEDS: Rosuvastatin 5 MG TAB PO SCH (20:51)
[2023-02-23 22:40] LABS: Bacteria/HPF None Seen HPF (None Seen); Bilirubin Negative (Negative); Blood, Urine Trace (Negative); CAUTI Indications for Culture Dysuria,urgency,freq; Clarity Turbid (Clear); Glucose, Urine (Dipstick) Normal (Negative); Ketone, Urine Negative (Negative); Leukocyte 75 Leu/uL (Negative); Nitrite Negative (Negative); Protein, Urine (Dipstick) 100 mg/dL (Neg-Trace); RBC/HPF 0-3 HPF (0-3); Squamous Epithelial 0-3 HPF (0-3); Urobilinogen Normal mg/dL (Less than 2)
[2023-02-23 22:42] LABS: Urine Culture Reflex No No
[2023-02-24 05:33] LABS: Hemoglobin 7.7 g/dL (12.0-16.0); Manual Diff?? YES; Mean Corpuscular Hemoglobin 29.8 pg (27.0-31.0); Mean Corpuscular Volume 85.3 fl (78.0-98.0); RBC Distribution Width 13.9 % (11.5-14.5); Red Blood Cell (RBC) Count 2.58 mill/uL (4.20-5.40); White Blood Cell (WBC) Count 33.2 10x3/uL (4.8-10.8)
[2023-02-24 05:36] LABS: Platelet Count 10 10x3/uL (130-400)
[2023-02-24 05:38] LABS: Delete Auto Diff?? YES
[2023-02-24] MEDS ORDERED: LevoFLOXacin 500 MG TAB PO SCH (06:00)
[2023-02-24 06:01] LABS: Anion Gap 11 mmol/L (10-20); BUN (Urea Nitrogen) 19 mg/dL (9.8-20.1); Calc. Creatinine Clearance 62 mL/min (70-130); Calcium 10.2 mg/dL (7.8-10.44); Carbon Dioxide 25 mmol/L (23-31); Chloride 104 mmol/L (98-107); Estimated GFR 65; Glucose 103 mg/dL (80-115); Magnesium 1.7 mg/dL (1.6-2.6); Potassium 3.7 mmol/L (3.5-5.1); Sodium 136 mmol/L (136-145)
[2023-02-24 07:00] LABS: Band 3 % (5-11); CellaVision Operator ID lab.abc; Lymphocytes 3 % (21-51); Metamyelocyte 2 % (0-0); Monocytes 37 % (0-10); Myelocyte 1 % (0-0); Neutrophil 13 % (42-75); Nucleated RBC (Manual Ct) 2 % (0); Platelet Adequacy Comment Significant decrease; RBC Morphology Within Normal Limits; Reactive Lymphocytes 1 % (0-10); Smudge Cells 20.9 %; Total Cell Count 110
[2023-02-24] MEDS ORDERED: Floranex 1 GM Packet PO SCH (09:00)
[2023-02-24] MEDS: Amlodipine 10 MG TAB PO SCH (09:14)
[2023-02-24] MEDS: Calcium Carbonate 600 MG + Vit D TAB PO SCH (09:14)
[2023-02-24] MEDS: Ursodiol 300 MG CAP PO SCH ×3 (09:15→23:54)
[2023-02-24] MEDS: Potassium Chloride 10 MEQ TAB PO SCH (09:15)
[2023-02-24] MEDS: Multivitamin W/ Minerals 1 TAB PO SCH (09:15)
[2023-02-24] MEDS: valACYclovir 500 MG TAB PO SCH (09:16)
[2023-02-24] MEDS: Metoprolol Tartrate 50 MG TAB PO SCH (09:16)
[2023-02-24] MEDS: Magnesium Oxide 250 MG TAB PO SCH (09:16)
[2023-02-24] MEDS: Atovaquone 750 MG/5 ML UDCUP PO SCH (09:46)
[2023-02-24] MEDS ORDERED: Dexamethasone 1 MG TAB PO SCH (12:15)
[2023-02-24] MEDS ORDERED: Polyethylene Glycol 3350 17 GM Packet PO PRN (12:23)
[2023-02-24 13:28] LABS: Hematocrit 22.4 % (36.0-47.0); Manual Diff?? YES; Mean Corpuscular HGB CONC 35.7 g/dL (32.0-36.0); Mean Corpuscular Hemoglobin 30.9 pg (27.0-31.0); Mean Corpuscular Volume 86.5 fl (78.0-98.0); RBC Distribution Width 14.2 % (11.5-14.5); Red Blood Cell (RBC) Count 2.59 mill/uL (4.20-5.40)
[2023-02-24 13:34] LABS: Platelet Count 13 10x3/uL (130-400)
[2023-02-24 13:35] LABS: Delete Auto Diff?? YES
[2023-02-24 14:12] LABS: Band 3 % (5-11); Burr Cells SLIGHT = 2-5 cells HPF (0-1); CellaVision Operator ID LAB.KB; Eosinophils 1 % (0-10); Lymphocytes 3 % (21-51); Macrocytosis SLIGHT = 6-15 cells HPF (0-5); Monocytes 34 % (0-10); Neutrophil 2 % (42-75); Other Cell Types 54.2; Ovalocytes SLIGHT = 2-5 cells HPF (0-1); Platelet Adequacy Comment Significant decrease; Polychromasia SLIGHT = 2-3 cells HPF (0-2); Reactive Lymphocytes 2 % (0-10); Reflex for Review?? YES; Schistocytes SLIGHT = 2-5 cells HPF (0-1); Smudge Cells 133.3 %; Total Cell Count 96
[2023-02-24] MEDS ORDERED: Acetaminophen 500 MG TAB PO SCH (14:15)
[2023-02-24] MEDS ORDERED: Famotidine/PF 20 mg/2ml Vial SLOW IVP SCH (14:15)
[2023-02-24] MEDS ORDERED: diphenhydrAMINE 50 MG CAP PO SCH (14:15)
[2023-02-24] MEDS ORDERED: methylPREDNISolone Sod Succ/PF 125 MG/2 ML VIAL IVP SCH (15:30)
[2023-02-24] MEDS ORDERED: diphenhydrAMINE 50 MG/ML VIAL IVP PRN (17:14)
[2023-02-24] MEDS ORDERED: diphenhydrAMINE 50 MG/ML VIAL IVP SCH (17:15)
[2023-02-24] MEDS ORDERED: Vancomycin 1 GM in Premix Bag 1 BAG IVPB SCH (17:15)
[2023-02-24 17:18] LABS: Platelet Count 29 10x3/uL (130-400)
[2023-02-24] MEDS ORDERED: Furosemide 40 MG/4 ML VIAL SLOW IVP SCH (17:30)
[2023-02-24 17:31] LABS: Fibrinogen 415 mg/dL (253-463); INR-International Normal Ratio 1.8; Prothrombin Time 21.9 sec (12.0-14.7)
[2023-02-24 17:32] LABS: PTT 34.7 sec (22.9-36.1)
[2023-02-24 17:41] LABS: D-Dimer Test 18.92 *mcg/mL (0.27-0.43)
[2023-02-24] MEDS ORDERED: Vancomycin 1.5 GRAM/300 ML BAG 1.5 GM in Premix Bag 1 BAG IVPB SCH (18:15)
[2023-02-24 19:47] LABS: Hematocrit 21.2 % (36.0-47.0); Hemoglobin 7.6 g/dL (12.0-16.0); Manual Diff?? YES; Mean Corpuscular HGB CONC 35.8 g/dL (32.0-36.0); Mean Corpuscular Hemoglobin 30.2 pg (27.0-31.0); Mean Corpuscular Volume 84.1 fl (78.0-98.0); RBC Distribution Width 14.6 % (11.5-14.5); Red Blood Cell (RBC) Count 2.52 mill/uL (4.20-5.40)
[2023-02-24 19:51] LABS: Delete Auto Diff?? YES; Platelet Count 22 10x3/uL (130-400); White Blood Cell (WBC) Count 64.9 10x3/uL (4.8-10.8)
[2023-02-24 20:05] LABS: Lactic Acid 8.6 mmol/L (0.5-2.2)
[2023-02-24 20:22] LABS: Band 3 % (5-11); Burr Cells SLIGHT = 2-5 cells HPF (0-1); CellaVision Operator ID LAB.KB; Lymphocytes 12 % (21-51); Monocytes 14 % (0-10); Neutrophil 12 % (42-75); Other Cell Types 58.2; Ovalocytes SLIGHT = 2-5 cells HPF (0-1); Platelet Adequacy Comment Significant decrease; Polychromasia SLIGHT = 2-3 cells HPF (0-2); Schistocytes SLIGHT = 2-5 cells HPF (0-1); Smudge Cells 159.2 %; Total Cell Count 98
[2023-02-24 20:47] LABS: Actual Bicarbonate (HCO3a) 17.7 mEq/L (22-28); Base Excess (BEa) -6.3 mEq/L (-2.0 to +3.0); CO2 Tension 29.1 mmHg (35.0-45.0); Calcium, Ionized (arterial) 1.32 mmol/L (1.12-1.30); Carboxyhemoglobin (COHb) 0.2 gm% (0.0-3.0); Hematocrit-ABG 21 % (36.0-47.0); Hemoglobin (Hb) 7.3 g/dL (12.0-16.0); O2 Tension (PaO2), arterial 66.5 mmHg (> 80.0); Potassium - ABG Lab 4.55 mmol/L (3.70-5.30); pH, Arterial 7.403 (7.35-7.45)
[2023-02-24] MEDS ORDERED: Cefepime 1 GM in Sodium Chloride 0.9% 100 ML IVPB SCH (21:00)
[2023-02-24] MEDS ORDERED: Senokot 8.6 MG TAB PO SCH (21:00)
[2023-02-24 23:04] VITALS: BP 113/56
[2023-02-25] MEDS: Potassium Chloride 10 MEQ TAB PO SCH ×2 (00:06→10:25)
[2023-02-25] MEDS: Metoprolol Tartrate 50 MG TAB PO SCH (00:06)
[2023-02-25] MEDS: valACYclovir 500 MG TAB PO SCH (00:09)
[2023-02-25] MEDS: Rosuvastatin 5 MG TAB PO SCH (00:09)
[2023-02-25] MEDS ORDERED: Dextrose 5% in Water 1,000 ML IV PRN (00:11)
[2023-02-25] MEDS ORDERED: Glucagon 1 MG/ML KIT IM PRN (00:11)
[2023-02-25] MEDS ORDERED: Dextrose 50% Abboject 50 ML SYRINGE SLOW IVP PRN (00:11)
[2023-02-25 02:29] LABS: Hematocrit 17.9 % (36.0-47.0); Hemoglobin 6.1 g/dL (12.0-16.0); Manual Diff?? YES; Mean Corpuscular HGB CONC 34.1 g/dL (32.0-36.0); Mean Corpuscular Hemoglobin 28.9 pg (27.0-31.0); Mean Corpuscular Volume 84.8 fl (78.0-98.0); Mean Platelet Volume 11.1 fL (7.4-10.4); RBC Distribution Width 17.2 % (11.5-14.5); Red Blood Cell (RBC) Count 2.11 mill/uL (4.20-5.40); White Blood Cell (WBC) Count 70.4 10x3/uL (4.8-10.8)
[2023-02-25 02:31] LABS: Platelet Count 170 10x3/uL (130-400)
[2023-02-25 02:32] LABS: Delete Auto Diff?? YES
[2023-02-25 03:02] LABS: Anion Gap 27 mmol/L (10-20); BUN (Urea Nitrogen) 32 mg/dL (9.8-20.1); Calc. Creatinine Clearance 55 mL/min (70-130); Calcium 10.8 mg/dL (7.8-10.44); Carbon Dioxide 12 mmol/L (23-31); Chloride 102 mmol/L (98-107); Estimated GFR 56; Glucose 58 mg/dL (80-115); Potassium 4.7 mmol/L (3.5-5.1); Sodium 136 mmol/L (136-145)
[2023-02-25 03:02] LABS: Lactic Acid 14.2 mmol/L (0.5-2.2)
[2023-02-25 03:07] LABS: Anisocytosis MODERATE=16-30 cells HPF (0-5); CellaVision Operator ID LAB.JMM; Hypochromia SLIGHT = 6-15 cells HPF (0-5); Lymphocytes 17 % (21-51); Microcytosis SLIGHT = 6-15 cells HPF (0-5); Monocytes 34 % (0-10); Neutrophil 8 % (42-75); Nucleated RBC (Manual Ct) 1 % (0); Platelet Adequacy Comment Platelets Normal; RBC Morphology 2; Schistocytes SLIGHT = 2-5 cells HPF (0-1); Smudge Cells 102.7 %; Total Cell Count 110
[2023-02-25 03:23] LABS: Actual Bicarbonate (HCO3v) 11.3 mEq/L (22-28); Base Excess -15.5 mEq/L (-2.0 to +3.0); Calcium, Ionized (venous) 1.35 mmol/L (1.16-1.32); Chloride (VBG) 101 mmol/L (98-106); Hematocrit-VBG 21 % (36.0-47.0); Potassium (VBG) 5.09 mmol/L (3.70-5.30); Sodium 134.3 mmol/L (133-146); pH (venous) 7.194 (7.32-7.43)
[2023-02-25] MEDS ORDERED: Sodium Bicarb 50 MEQ/50 ML VIAL ONE (03:29)
[2023-02-25] MEDS ORDERED: diphenhydrAMINE 50 MG/ML VIAL IVP SCH (03:30)
[2023-02-25] MEDS ORDERED: Sodium Bicarb 50 MEQ/50 ML VIAL IVP SCH ×2 (03:45→05:30)
[2023-02-25] MEDS ORDERED: Hydrocortisone Sod Succ/PF 100 mg/2 ml Vial IVP SCH (03:45)
[2023-02-25] MEDS ORDERED: Sodium Bicarbonate 150 MEQ in Dextrose 5% in Water 1,000 ML IV SCH (03:45)
[2023-02-25] MEDS ORDERED: Metoprolol Tartrate 50 MG TAB PO SCH (04:09)
[2023-02-25 04:14] LABS: ALT (SGPT) 137 U/L (8-55); AST (SGOT) 341 U/L (5-34); Albumin 3.6 g/dL (3.4-4.8); Alkaline Phosphatase 326 U/L (40-110); Bilirubin, Direct 2.2 mg/dL (0.1-0.3); Bilirubin, Total 3.3 mg/dL (0.2-1.2); Lipase 32 U/L (8-78); Protein, Total 6.3 g/dL (5.8-8.1)
[2023-02-25 04:24] VITALS: TEMP 98.1
[2023-02-25] MEDS ORDERED: Lactated Ringer's 1,000 ML IV SCH (04:30)
[2023-02-25] MEDS ORDERED: Meropenem 1 GM in Sodium Chloride 0.9% 100 ML IVPB SCH ×2 (04:45→13:00)
[2023-02-25] MEDS ORDERED: Lactated Ringer's 500 ML IV SCH ×2 (04:45→06:30)
[2023-02-25] MEDS ORDERED: Acetaminophen 325 MG TAB PO PRN (05:15)
[2023-02-25 05:16] LABS: Base Excess -17.8 mEq/L (-2.0 to +3.0); Calcium, Ionized (venous) 1.27 mmol/L (1.16-1.32); Chloride (VBG) 98 mmol/L (98-106); Hematocrit-VBG 19 % (36.0-47.0); Hemoglobin (Hb) 6.3 g/dL (11.7-16.1); Potassium (VBG) 4.91 mmol/L (3.70-5.30); Sodium 134.5 mmol/L (133-146)
[2023-02-25 05:19] LABS: Actual Bicarbonate (HCO3v) 9.6 mEq/L (22-28); pH (venous) 7.142 (7.32-7.43)
[2023-02-25 05:48] LABS: Base Excess (BEa) -12.4 mEq/L (-2.0 to +3.0); Calcium, Ionized (arterial) 1.18 mmol/L (1.12-1.30); Carboxyhemoglobin (COHb) 1.2 gm% (0.0-3.0); Hematocrit-ABG 18 % (36.0-47.0); Hemoglobin (Hb) 6.1 g/dL (12.0-16.0); O2 Tension (PaO2), arterial 68.6 mmHg (> 80.0); Potassium - ABG Lab 4.95 mmol/L (3.70-5.30); pH, Arterial 7.339 (7.35-7.45)
[2023-02-25 05:49] LABS: CO2 Tension 23.2 mmHg (35.0-45.0)
[2023-02-25 05:50] LABS: Actual Bicarbonate (HCO3a) 12.2 mEq/L (22-28); Puncture Site RBA
[2023-02-25] MEDS ORDERED: Furosemide 40 MG/4 ML VIAL SLOW IVP SCH (06:00)
[2023-02-25 06:06] LABS: INR-International Normal Ratio 2.5; Prothrombin Time 28.5 sec (12.0-14.7)
[2023-02-25 06:07] LABS: Fibrinogen 269 mg/dL (253-463); PTT 38.9 sec (22.9-36.1)
[2023-02-25 06:13] LABS: Lactic Acid 22.6 mmol/L (0.5-2.2)
[2023-02-25 06:30] LABS: D-Dimer Test Greater than 20.00 *mcg/mL (0.27-0.43)
[2023-02-25] MEDS ORDERED: Sodium Chloride 0.9% 500 ML IV SCH (06:30)
[2023-02-25 06:38] LABS: Platelet Count 148 10x3/uL (130-400)
[2023-02-25 07:53] LABS: Hematocrit 21.4 % (36.0-47.0); Hemoglobin 7.1 g/dL (12.0-16.0); Manual Diff?? YES; Mean Corpuscular HGB CONC 33.2 g/dL (32.0-36.0); Mean Corpuscular Hemoglobin 30.1 pg (27.0-31.0); Platelet Count 130 10x3/uL (130-400); Red Blood Cell (RBC) Count 2.36 mill/uL (4.20-5.40)
[2023-02-25] MEDS ORDERED: Vancomycin 1 GM in Premix Bag 1 BAG IVPB SCH (08:00)
[2023-02-25] MEDS ORDERED: Dexamethasone 4 MG TAB PO SCH (08:00)
[2023-02-25 08:05] LABS: Delete Auto Diff?? YES; Mean Corpuscular Volume 90.7 fl (78.0-98.0)
[2023-02-25 08:35] LABS: White Blood Cell (WBC) Count 86.3 10x3/uL (4.8-10.8)
[2023-02-25] MEDS ORDERED: Polyethylene Glycol 3350 17 GM Packet PO SCH (09:00)
[2023-02-25] MEDS ORDERED: Micafungin 100 MG in Sodium Chloride 0.9% 100 ML IVPB SCH (09:00)
[2023-02-25] MEDS ORDERED: Atovaquone 750 MG/5 ML UDCUP PO SCH (09:00)
[2023-02-25] MEDS: Amlodipine 10 MG TAB PO SCH (10:21)
[2023-02-25 10:23] LABS: Band 4 % (5-11); Burr Cells SLIGHT = 2-5 cells HPF (0-1); CellaVision Operator ID LAB.GE; Large Platelets 1.8 % (0-5); Lymphocytes 5 % (21-51); Metamyelocyte 2 % (0-0); Monocytes 49 % (0-10); Myelocyte 3 % (0-0); Neutrophil 4 % (42-75); Platelet Adequacy Comment Platelets Normal; Polychromasia SLIGHT = 2-3 cells HPF (0-2); Promyelocytes 1 % (0-0); Reactive Lymphocytes 7 % (0-10); Schistocytes MARKED= >16 cells HPF (0-1); Total Cell Count 111
[2023-02-25] MEDS ORDERED: Iopamidol 370 76% 100 ML VIAL ONE (11:28)
== END 2023-02-25 11:49 | disposition short-term general hospital (02) | DRG 308 ==
LOC: ERS 08:17 → 2SW 11:00 → OBSVTOIN 02-23 17:14 → CCU 02-24 23:27
PROVIDERS: ADMIT Internal Medicine; ATTEND Emergency Medicine
PROC: 30233R1 Transfusion of Nonautologous Platelets into Peripheral Vein, Percutaneous Approach (ICD-10-PCS; 2023-02-22)
PROC: 3E03329 Introduction of Other Anti-infective into Peripheral Vein, Percutaneous Approach (ICD-10-PCS; principal; 2023-02-24)
PROC: 4A033R1 Measurement of Arterial Saturation, Peripheral, Percutaneous Approach (ICD-10-PCS; 2023-02-24)
PROC: 6A550Z2 Pheresis of Platelets, Single (ICD-10-PCS; 2023-02-24)
PROC: 30233N1 Transfusion of Nonautologous Red Blood Cells into Peripheral Vein, Percutaneous Approach (ICD-10-PCS; 2023-02-25)
DX: I48.0 Paroxysmal atrial fibrillation (principal); A41.9 Sepsis, unspecified organism; I62.00 Nontraumatic subdural hemorrhage, unspecified; J96.01 Acute respiratory failure with hypoxia; C92.10 Chronic myeloid leukemia, BCR/ABL-positive, not having achieved remission; Z94.81 Bone marrow transplant status; Z94.84 Stem cells transplant status; G93.40 Encephalopathy, unspecified; E87.20 Acidosis, unspecified; D69.3 Immune thrombocytopenic purpura; I10 Essential (primary) hypertension; E78.5 Hyperlipidemia, unspecified; D69.6 Thrombocytopenia, unspecified; E87.6 Hypokalemia; I27.20 Pulmonary hypertension, unspecified; I07.1 Rheumatic tricuspid insufficiency; D73.5 Infarction of spleen; Z79.899 Other long term (current) drug therapy; Z98.890 Other specified postprocedural states; Z90.710 Acquired absence of both cervix and uterus
CPT/HCPCS: 36415; 36416; 36430; 36600; 70450; 71045; 71046; 71275; 74174; 74177; 76705; 80048; 80053; 80076; 81001; 82550; 82805; 83605; 83690; 83735; 84484; 85025; 85049; 85060; 85300; 85362; 85379; 85384; 85610; 85730; 86850; 86900; 86901; 87040; 87086; 93005; 93306; 96361; 96374; 96375; 96376; G0378; J0692; J1200; J1642; J1940; J2185; J2248; J2270; J2272; J2405; J2920; J2930; J3370; J3370-JW; J3490; J7030; J7070; J7120; J7999; J8540; P9035; P9040; Q9967; S0028